=== PATIENT | female | born 1950 | race Caucasian/White ===

== ENCOUNTER 2017-09-10 06:58 | Emergency (ER) | payer OTHER ==
[~2017-09-10] VITALS: Ht 165.1 cm; Wt 127.0 kg
[~2017-09-10 06:58] MED LIST: AMBIEN 5 MG TABL5 M1 PO; AMITRIPTYLINE100 MG PO; ATORVASTATIN CA40 MG PO; B12INJ; BENTYL 20 MG TA20 M1 PO; BUSPIRONE HCL10 MG PO; CELEBREX 200 M200 M1 PO; CYMBALTA60 MG PO; CYTOMEL 25 MCG25 MC1 PO; FLEXERIL PO; FLOVENT HFA 1110 MCG PO; FOLIC ACID1 MG PO; IBUPROFEN 800800 M1 PO; ISOMETHEPT-DIC1 EACH PO; KEFLEX500 MG PO; LIDODERM1 EACH TRANSDERM; METHOTREXATE 22.5 MG PO; MIDODRINE HCL 55 M1 PO; MUCINEX TA600 MG/TA2 PO; NASONEX17 GM INH; NASONEX17 GM NASAL; NEURONTIN600 MG PO; OXYCODONE HCL 55 MG PO; OXYCONTIN20 M1 PO; PREDNISONE 5 MG5 M1 PO; PROCHLORPERAZINE5 M1 PO; PROTONIX40 M1 PO; SINGULAIR 10 MG10 M1 PO; TOLTERODINE TART4 MG PO; TOPAMAX 100 MG100 MG PO; TRIAMCINOLONE A80 G2 TOP; VALIUM5 MG PO; VENTOLIN HFA 1818 GM INH; VITAMIN D5000 UNIT PO
[2017-09-10] MEDS ORDERED: OXYCONTIN30 MG PO (07:10)
[2017-09-10 08:08] LABS: INFLUENZA A ANTIGEN None Detected (None Detect); INFLUENZA B ANTIGEN None Detected (None Detect)
[2017-09-10 08:17] LABS: WBC 4.1 thou/uL (4.0-11.0)
[2017-09-10 08:18] LABS: ABSOLUTE EOSINOPHILS 0.1 thou/uL (0.0-0.7); ABSOLUTE LYMPHOCYTES 0.9 thou/uL (0.8-5.3); ABSOLUTE MONOCYTES 0.4 thou/uL (0.0-1.2); ABSOLUTE NEUTROPHILS 2.7 thou/uL (1.6-8.1); BASOPHILS 0.6 %; EOSINOPHILS 2.7 %; HEMATOCRIT 34.6 % (37.0-47.0); HEMOGLOBIN 11.6 gm/dL (12.0-15.0); LYMPHOCYTES 22.5 %; MCHC 33.5 g/dL (28.0-37.0); MCV 89.6 fL (80.0-100.0); MONOCYTES 8.8 %; MPV 7.4 fl. (7.2-11.1); NUCLEATED RBCS 0 /100WBC; PLATELET COUNT* 62 thou/uL (150-400); POLYS 65.4 %; RBC 3.86 mil/uL (4.20-5.00); RDW-CV 16.9 % (10.5-14.5)
[2017-09-10 08:33] LABS: CALCIUM 8.8 mg/dL (8.5-10.1); CREATININE 0.9 mg/dL (0.6-1.3); POTASSIUM 3.6 mmol/L (3.5-5.1)
[2017-09-10 08:37] LABS: ALBUMIN 2.9 g/dL (3.4-5.0); TOTAL BILIRUBIN 0.7 mg/dL (<0.1-1.0); TOTAL PROTEIN 6.5 g/dL (6.4-8.2)
[2017-09-10 08:43] LABS: URINE BILIRUBIN NEGATIVE (Negative); URINE BLOOD 1+ (Negative); URINE CLARITY CLEAR; URINE COLOR YELLOW; URINE GLUCOSE-RANDOM NEGATIVE (Negative); URINE KETONES NEGATIVE (Negative); URINE LEUKOCYTES-REFLEX NEGATIVE (Negative); URINE NITRITE-REFLEX POSITIVE (Negative); URINE PROTEIN NEGATIVE (Negative); URINE SPECIFIC GRAVITY <= 1.005 (1.005-1.030); URINE UROBILINOGEN 0.2 E.U./dl (0.2-1.0)
[2017-09-10 08:54] LABS: CASTS None Seen /LPF (None Seen); CRYSTALS None Seen /LPF (None Seen); MUCUS None Seen strn/LPF (None Seen); SQUAMOUS 4-10 Moderate /LPF (0-3); URINE RBC 3-10 Few /HPF (0-2); URINE WBC-REFLEX 0-5 Rare /HPF (0-5)
[2017-09-10] MEDS ORDERED: CARAFATE 1 GM TA1 GM PO (10:20)
[2017-09-10] MEDS ORDERED: LEVAQUIN 500 M500 MG PO (10:20)
[2017-09-10] MEDS ORDERED: PHENERGAN 25 MG25 M1 PO (10:20)
[2017-09-10 10:35] VITALS: BP 138/60
--- NOTE | 2017-09-10 13:56 | EKG ---
[place] [address] ELECTROCARDIOGRAM REPORT Name: ANA DEY Room: [facility]#: [id number] Admission: 09/10/17 Attend Phys: Discharge: 09/10/17 Date of : 52 Report #: [id number] THIS REPORT FOR: //name// [facility] ED Test Date: 2017-09-10 Test Time: 07:05:26 Pat Name: ANA DEY Department: Room: Gender: F Telegraph Mechanic: BISMARK : 1950 Requested By: Tana Arambula Order Number: [id number] Mandie MD: Toni Dubois Measurements Intervals [place] Rate: 99 P: 41 WI: 150 QRS: -15 QRSD: 96 T: 21 QT: 377 QTc: 484 Interpretive Statements Sinus rhythm Left ventricular hypertrophy, bivoltage Baseline wander in lead(s) V1,V2,V5,V6 Compared to ECG 03/09/2017 23:40:28 Sinus tachycardia no longer present Q waves no longer present Electronically Signed On 09-10-2017 13:56:45 EXECUTIVE ADMINISTRATOR by Toni Dubois [email or web address] <ELECTRONICALLY SIGNED> By: Toni Dubois MD, FACC 09/10/17 1356 0705 0705 Toni Dubois MD, [facility] /EPI
== END 2017-09-10 10:45 | disposition home or self-care (01) ==
LOC: M.ERS 06:58
PROVIDERS: Personal Emergency Response Attendant
DX: N39.0 Urinary tract infection, site not specified (principal); B34.9 Viral infection, unspecified; R31.9 Hematuria, unspecified; E86.0 Dehydration

== ENCOUNTER 2017-09-20 19:32 | Inpatient (IN) | payer OTHER ==
[~2017-09-20] VITALS: Ht 165.1 cm; Wt 131.1 kg
[~2017-09-20 19:32] MED LIST changes: +CARAFATE 1 GM TA1 GM PO; +LEVAQUIN 500 M500 MG PO; +OXYCONTIN30 MG PO; +PHENERGAN 25 MG25 M1 PO
[2017-09-20 19:37] VITALS: BP 105/57
[2017-09-20 20:33] LABS: ABSOLUTE EOSINOPHILS 0.1 thou/uL (0.0-0.7); ABSOLUTE LYMPHOCYTES 0.4 thou/uL (0.8-5.3); ABSOLUTE MONOCYTES 0.4 thou/uL (0.0-1.2); ABSOLUTE NEUTROPHILS 1.8 thou/uL (1.6-8.1); BASOPHILS 0.4 %; HEMOGLOBIN 11.4 gm/dL (12.0-15.0); LYMPHOCYTES 13.5 %; MCH 30.4 pg (26.0-34.0); MCHC 33.4 g/dL (28.0-37.0); MONOCYTES 16.3 %; MPV 7.4 fl. (7.2-11.1); NUCLEATED RBCS 0 /100WBC; PLATELET COUNT* 53 thou/uL (150-400); POLYS 66.8 %; RBC 3.73 mil/uL (4.20-5.00); RDW-CV 17.1 % (10.5-14.5); WBC 2.7 thou/uL (4.0-11.0)
[2017-09-20 20:43] LABS: ANION GAP 10 mmol/L (7-16); BUN 9 mg/dL (7-18); CALCIUM 8.7 mg/dL (8.5-10.1); CHLORIDE 105 mmol/L (98-107); CO2 27 mmol/L (21-32); CREATININE 1.1 mg/dL (0.6-1.3); GLUCOSE 167 mg/dL (70-99); POTASSIUM 3.6 mmol/L (3.5-5.1); SODIUM 142 mmol/L (136-145)
[2017-09-20 20:54] LABS: ALKALINE PHOSPHATASE 104 U/L (46-116); NT-PRO BRAIN NAT PEPTIDE 136 pg/mL (<300); SGOT 25 U/L (15-37); SGPT 28 U/L (30-65); TOTAL BILIRUBIN 0.7 mg/dL (<0.1-1.0); TOTAL PROTEIN 6.5 g/dL (6.4-8.2); TROPONIN-I LEVEL <0.06 ng/mL (<0.06)
[2017-09-20 22:01] VITALS: BP 137/80
[2017-09-20 22:45] VITALS: BP 113/46
[2017-09-21 04:18] VITALS: BP 138/51
--- NOTE | 2017-09-21 06:04 | NUR ---
PATIENT ARRIVED ON FLOOR FROM ER ABOUT 2230. PATIENT ADMISSION HISTORY AND ASSESSMENT WAS COMPLETED CHARTED. IV FLUIDS AND ANTIBIOTICS WERE STARTED. PATIENT HAD A TEMP 101.6 UPON ARRIVAL TO FLOOR BUT WAS DOWN TO 97.8 AT 0400. PATIENT WAS GIVEN TORADOL ONCE FOR HEADACHE. WILL CONTINUE TO MONITOR.
[2017-09-21 09:45] VITALS: BP 83/33
--- NOTE | 2017-09-21 11:27 | NUR ---
SW met with pt and pt bedside to complete initial assessment, introduce self, and SW role. Pt alert and oriented although tired. Pt lives at home with and pt says that she feels safe at home and that her takes really good care of her. Pt fairly independent prior with mobility around the house and goes to [employer], uses scooter/wc at [facility], etc. otherwise pt does not get out of the house much. SW to continue to follow to assist with safe dc planning.
[2017-09-21 11:58] VITALS: BP 94/36
[2017-09-21 15:00] VITALS: BP 116/34
--- NOTE | 2017-09-21 16:17 | NUR ---
PATIENT CONTINUES TO HAVE DRY COUGH, SPUTUM CUP GIVEN FOR CULTURE OF OBTAINABLE. IV SL THIS SHIFT, SCHED ABX REMAIN. PRN OXY IR GIVEN FOR SHOULDER/CHEST PAIN FROM COUGHING, GOOD RELIEF NOTED. PATIENT UP SBA. CORTISOL LAB ORDERED FOR AM. MRSA SWAB PENDING.
[2017-09-21 16:28] LABS: URINE BILIRUBIN NEGATIVE (Negative); URINE BLOOD NEGATIVE (Negative); URINE CLARITY CLOUDY; URINE COLOR YELLOW; URINE GLUCOSE-RANDOM NEGATIVE (Negative); URINE KETONES NEGATIVE (Negative); URINE LEUKOCYTES NEGATIVE (Negative); URINE NITRITE NEGATIVE (Negative); URINE PROTEIN NEGATIVE (Negative); URINE SPECIFIC GRAVITY >= 1.030 (1.005-1.030); URINE UROBILINOGEN 0.2 E.U./dl (0.2-1.0)
[2017-09-21 16:38] LABS: SQUAMOUS 4-10 Moderate /LPF (0-3)
[2017-09-21 16:39] LABS: AMORPHOUS URATES Many /LPF (None Seen); BACTERIA 1-9 Few /HPF (None Seen); MUCUS None Seen strn/LPF (None Seen)
[2017-09-21 16:40] LABS: CASTS None Seen /LPF (None Seen); URINE RBC None Seen /HPF (0-2); URINE WBC 0-5 Rare /HPF (0-5)
[2017-09-22 04:00] VITALS: BP 103/34
--- NOTE | 2017-09-22 06:11 | NUR ---
ASSESSMENT COMPLETE. PT SLEPT THROUGH THE NIGHT. PT DENIES NEED FOR PAIN MEDICATION. PT HAD LOW GRADE TEMP, PRN TYLENOL GIVEN. PT GIVEN IV ANTIBIOTICS SCHEDULED. PT IS ON ROOM AIR WITH ADEQAUTE SATS. PT IS UP TO BATHROOM STANDBY ASSIST. PT IS SLEEPING AT THIS TIME AND HAS NO OTHER CONCERNS. SEE ASSESSMENT AND VITALS FOR OTHER DETAILS. CALL LIGHT WITHIN REACH, WILL CONTINUE TO MONITOR
[2017-09-22 06:43] LABS: HEMATOCRIT 30.3 % (37.0-47.0); HEMOGLOBIN 10.2 gm/dL (12.0-15.0); MCH 30.7 pg (26.0-34.0); MCHC 33.6 g/dL (28.0-37.0); MCV 91.4 fL (80.0-100.0); MPV 7.9 fl. (7.2-11.1); NUCLEATED RBCS 0 /100WBC; RBC 3.31 mil/uL (4.20-5.00); RDW-CV 16.9 % (10.5-14.5); WBC 2.2 thou/uL (4.0-11.0)
[2017-09-22 06:45] LABS: PLATELET COUNT* 39 thou/uL (150-400)
[2017-09-22 07:34] LABS: ABSOLUTE EOSINOPHILS 0.1 thou/uL (0.0-0.7); ABSOLUTE LYMPHOCYTES 0.2 thou/uL (0.8-5.3); ABSOLUTE MONOCYTES 0.2 thou/uL (0.0-1.2); ABSOLUTE NEUTROPHILS 1.7 thou/uL (1.6-8.1); PLATELET ESTIMATE DECREASED
[2017-09-22 16:44] VITALS: BP 102/37
--- NOTE | 2017-09-22 18:09 | NUR ---
ASSUMED CARE THIS AM. A/O X 4, REPORTS FEELING FATIGUED, NAUSEA TREATED WITH IV MEDICATION. CT ABD COMPLETE, FLUIDS INFUSING ORDERED, SELAM IV ABT WELL. CONSULTS FOR HEMATOLOGY AND INF. DISEASE PROCESSED. FAMILY AT BEDSIDE, PATIENT SLEEPING MOST OF THIS SHIFT. IV ACCESS TO LEFT SHOULDER CONT TO SELAM IVF. CONTINENT OF BOWEL/BLADDER, CALL LIGHT IN REACH.
[2017-09-23 00:12] VITALS: BP 113/37
[2017-09-23 02:12] LABS: HIV-1/HIV-2 ANTIBODY Non Reactive (Non Reactive)
--- NOTE | 2017-09-23 05:37 | NUR ---
PATIENT SLEPT WELL DURING THIS SHIFT. PT UP TO BATHROOM WITH STEADY GAIT. PT IS ON ROOM AIR. PT WITH FLUIDS INFUSING IN UPPER LT SHOULDER PER DR ORDER. PT WITH NON-PRODUCTIVE COUGH. PT DENIES PAIN ON THIS SHIFT. PT WITH BLOOD SUGAR AT 2100 OF 172; NO TX ORDERED. FREQUENTLY USED ITEMS AND CALL LIGHT WITHIN REACH. SIDERAILS UPX2. WILL CONTINUE TO MONITOR.
[2017-09-23 11:03] LABS: BASOPHILS 1.5 %; HEMOGLOBIN 9.6 gm/dL (12.0-15.0); LYMPHOCYTES 23.5 %; MCH 30.7 pg (26.0-34.0); MCHC 33.2 g/dL (28.0-37.0); MCV 92.2 fL (80.0-100.0); MONOCYTES 11.5 %; MPV 7.8 fl. (7.2-11.1); NUCLEATED RBCS 0 /100WBC; POLYS 61.5 %; RBC 3.15 mil/uL (4.20-5.00); RDW-CV 17.4 % (10.5-14.5)
[2017-09-23 11:09] LABS: ABSOLUTE LYMPHOCYTES 0.3 thou/uL (0.8-5.3); ABSOLUTE MONOCYTES 0.1 thou/uL (0.0-1.2); ABSOLUTE NEUTROPHILS 0.8 thou/uL (1.6-8.1); PLATELET COUNT* 34 thou/uL (150-400); WBC 1.3 thou/uL (4.0-11.0)
[2017-09-23 11:11] LABS: CALCIUM 7.1 mg/dL (8.5-10.1); CREATININE 1.1 mg/dL (0.6-1.3); POTASSIUM 3.7 mmol/L (3.5-5.1)
[2017-09-23 16:00] VITALS: BP 136/73
[2017-09-24 00:29] VITALS: BP 133/60
[2017-09-24 15:00] VITALS: BP 164/65
[2017-09-24 17:06] LABS: IgA 265 mg/dL (87-352); IgG 916 mg/dL (700-1600); IgM 88 mg/dL (26-217)
[2017-09-25 03:37] VITALS: BP 134/47
--- NOTE | 2017-09-25 07:54 | CON ---
[address] [address] CONSULTATION Name: ANA DEY Room: [address] IN M.R.#: [id number] Admission: 09/20/17 Attend Phys: Angel Garcia MD Discharge: Date of : 52 Report #: [id number] THIS REPORT FOR: //name// CC: Angel Leonard DATE OF SERVICE: 09/22/2017 ATTENDING PHYSICIAN: Angel Garcia MD REASON FOR EVALUATION: Febrile illness with pancytopenia in the patient with underlying lupus erythematosus, chronic cough and recent urinary tract infection. HISTORY OF PRESENT ILLNESS: Chart reviewed, the patient examined. This is a 66-year-old with extensive medical history given her age including systemic lupus erythematosus. She is followed by Dr. Leonard, edge finisher, also has rheumatoid arthritis, psoriatic arthritis and generalized pain with fibromyalgia. She does have ongoing issues with hepatosplenomegaly as well who states she has been ill dating back actually several weeks onset was including fevers, generalized pain, she did have a cough, when she was not particularly responsive was evaluated towards the latter part of July. No change in her medical regimen. She has not had fevers. She denies any exposure history. She was admitted and empirically started on piperacillin, tazobactam and levofloxacin. She notes she did have nausea and emesis with oral levofloxacin as an outpatient. She is not encephalopathic. Evaluation thus far has been somewhat unrevealing including urinary antigens, MRSA and PCR was negative. Lactic acid was elevated at 2.4 and repeat now 1.2. CBC: White count of 2.2, H and H was 10.2 and 30.3 and platelets were 39, all of this consistent with her previous labs. Chest x-ray did show a question of a mild left basilar infiltrate. ALLERGIES: SULFA, IODINE, CODEINE, LEVOTHYROXINE, NITROFURANTOIN, ADHESIVE TAPE, MIDODRINE. CURRENT MEDICATIONS: Include liothyronine, cyclobenzaprine, ondansetron, duloxetine, amitriptyline, atorvastatin, zolpidem, levofloxacin and Zosyn. PAST MEDICAL HISTORY: As described above, IBS; osteoarthritis; chronic pain syndrome; reflux; diabetes mellitus, diet controlled; previous thyroid disease with irradiation; migraines and Graves lymphoma. SOCIAL HISTORY: Nonsmoker and no ethanol. FAMILY HISTORY: [place] [address] CONSULTATION Name: DEYANA CHARLES Ela Room: [address] IN [facility]#: [id number] Admission: 09/20/17 Attend Phys: Angel Garcia MD Discharge: Date of : 52 Report #: [id number] REVIEW OF SYSTEMS: As above. PHYSICAL EXAMINATION: GENERAL: She appears ill, not overtly toxic. She is lying in left lateral decubitus position. She does make eye contact. She did not have frequent cough. She appears pale, mildly diaphoretic and moderate distress. VITAL SIGNS: Temperature max 101.6 and more recently 98.6, pulse 112, respirations 21 and blood pressure 103/34. SKIN: Warm and dry. HEENT: Otherwise unremarkable. NECK: Supple. LUNGS: Does have few scattered coarse breath sounds. HEART: Systolic murmur in the left sternal border. ABDOMEN: Obese, soft and there is tenderness in the left upper quadrant. I do not appreciate any peritoneal signs. GENITOURINARY: Deferred. RECTAL: Deferred. LABORATORY DATA: Sputum culture is pending. She had moderate white cells and mixed ger on Gram stain. Blood cultures are sterile thus far. Chest x-ray improved actually from the baseline with clearing sed rate of 35. CBC as noted above, white count of 2.2, H 10.2 and 30.3 and platelets of 39. She does have lymphocytopenia of 200. TSH of 1.553. Lactic acid was 1.2. Legionella pneumococcal antigen is negative. Urinalysis is 0-5 white cells. Liver functions otherwise unremarkable. ASSESSMENT: Febrile illness, uncertain etiology, recent cough in the setting of pancytopenia and immunosuppression. I think it is reasonable to go ahead and do a CT of the abdomen and pelvis to exclude an occult process. We will adjust antimicrobial therapy, await other pending results and go ahead and do a viral respiratory panel as well as HIV. It is hopeful that prognosis is probably fairly good given the duration of illness and the lack of overall clinical deterioration. We will follow. <ELECTRONICALLY SIGNED> By: Freddie Toribio MD 09/25/17 0754 1207 [id number] Toribio MD /nt
[2017-09-25 08:30] VITALS: BP 145/56
[2017-09-25 09:11] LABS: HEMATOCRIT 27.4 % (37.0-47.0); HEMOGLOBIN 9.1 gm/dL (12.0-15.0); MCH 30.3 pg (26.0-34.0); MCHC 33.3 g/dL (28.0-37.0); MCV 90.9 fL (80.0-100.0); MPV 7.7 fl. (7.2-11.1); NUCLEATED RBCS 0 /100WBC; RBC 3.01 mil/uL (4.20-5.00)
[2017-09-25 09:26] LABS: CALCIUM 7.6 mg/dL (8.5-10.1); MAGNESIUM 1.7 mg/dL (1.8-2.4); POTASSIUM 3.2 mmol/L (3.5-5.1)
[2017-09-25 09:29] LABS: WBC 1.4 thou/uL (4.0-11.0)
[2017-09-25 09:30] LABS: PLATELET COUNT* 39 thou/uL (150-400)
[2017-09-25 09:45] LABS: ABSOLUTE LYMPHOCYTES 0.4 thou/uL (0.8-5.3); ABSOLUTE MONOCYTES 0.1 thou/uL (0.0-1.2); ABSOLUTE NEUTROPHILS 0.8 thou/uL (1.6-8.1)
[2017-09-25 09:46] LABS: PLATELET ESTIMATE DECREASED
--- NOTE | 2017-09-25 15:31 | NUR ---
DR GARZA NOTIFIED OF PATIENT HAVING LOOSE BLOODY STOOLS AND HAVING SOME BLOODY SPUTUM. DR GARZA IN TO ASSESS PATIENT. SPOUSE AT BEDSIDE THIS AFTERNOON. WILL CONTINUE WITH PLAN OF CARE.
[2017-09-25 16:00] VITALS: BP 169/86
[2017-09-25 19:28] VITALS: BP 134/62
--- NOTE | 2017-09-25 19:47 | NUR ---
PATIENT HAS BEEN A/O X 4 THIS SHIFT. MEDICATED FOR PAIN X 1 WITH RELIEF. DID HAVE NAUSEA THIS AM RELIEVED BY ZOFRAN. IV FLUIDS SALINE LOCKED THIS SHIFT. SALINE LOCK PATENT TO LEFT FOREARM. IV ANTIBIOTICS ADJUSTED. PATIENT DID HAVE SOME BLOODY SPUTUM AND DID HAVE SOME BLOODY STOOLS THIS SHIFT. DR GARZA NOTIFIED AND NEW ORDERS NOTED. STARTED ON IV PROTONIX THIS AFTERNOON AND GI CONSULT CALLED. PATIENT TO HAVE ABDOMINAL ULTRASOUND IN AM. REPEAT LABS ORDERED FOR THE AM. PLATELETS AND WBC CRITICAL THIS SHIFT AND CALLED TO DR GARZA. UP WITH ASSIST TO BATHROOM. HOURLY ROUNDING COMPLETED. CALL LIGHT WITHIN REACH. WILL CONTINUE WITH PLAN OF CARE.
[2017-09-26 04:07] LABS: HEMATOCRIT 29.6 % (37.0-47.0); HEMOGLOBIN 9.8 gm/dL (12.0-15.0); MCH 30.2 pg (26.0-34.0); MCHC 33.1 g/dL (28.0-37.0); MCV 91.5 fL (80.0-100.0); RBC 3.24 mil/uL (4.20-5.00); RDW-CV 17.1 % (10.5-14.5)
[2017-09-26 04:26] LABS: INR 1.2; PROTIME 11.4 Seconds (9.20-11.50)
[2017-09-26 04:37] LABS: ALBUMIN 2.7 g/dL (3.4-5.0); CALCIUM 7.7 mg/dL (8.5-10.1); POTASSIUM 3.4 mmol/L (3.5-5.1); TOTAL BILIRUBIN 0.5 mg/dL (<0.1-1.0); TOTAL PROTEIN 5.6 g/dL (6.4-8.2)
--- NOTE | 2017-09-26 05:41 | NUR ---
ASSESSMENT COMPLETE. PT SLEPT GOOD DURING THE NIGHT. PT IS ON ROOM AIR WITH ADEQAUTE SATS. PT GIVEN PRN PAIN MEDICATION ONCE WITH RELIEF REPORTED. PT DENIES N/V. PT HAS BEEN NPO SINCE MIDNIGHT FOR ABDOMINAL US. PT HAS IV IN LEFT FOREARM, SALINE LOCKED. PT IS UP ONE ASSIST TO BATHROOM. PT IS WEAK AND UNSTEADY, BED ALARM ON. SEE ASSESSMENT AND VITALS FOR OTHER DETAILS. CALL LIGHT WITHIN REACH, WILL CONTINUE TO MONITOR
[2017-09-26 06:06] LABS: BETA-2-MICROGLOBULIN 4.6 mg/L (0.6-2.4)
[2017-09-26 07:45] VITALS: BP 141/63
[2017-09-26 09:30] VITALS: BP 141/63
[2017-09-26 16:00] VITALS: BP 145/65
--- NOTE | 2017-09-26 18:39 | NUR ---
PATIENT HAS BEEN A/O X 4 THIS SHIFT. STATES FEELING BETTER THAN PREVIOUS DAYS. HAS HAD GENERALIZED PAIN RELIEVED WITH PRN OXY IR. SALINE LOCK PATENT. UP TO CHAIR THIS SHIFT. APPETITE IMPROVED. SEEN BY GI AND TO HAVE EGD ON MONDAY, CONSENT SIGNED. RVP PENDING, REMAINS IN DROPLET PRECAUTIONS. NO BLEEDING NOTED THIS SHIFT, HAS HAD NO STOOLS OR BLOOD SPUTUM TODAY. PATIENT'S AT BEDSIDE. HOURLY ROUNDING COMPLETED. CALL LIGHT WITHIN REACH. WILL CONTINUE WITH PLAN OF CARE.
[2017-09-26 19:35] VITALS: BP 138/50
[2017-09-27 05:15] LABS: CREATININE 0.9 mg/dL (0.6-1.3); POTASSIUM 3.6 mmol/L (3.5-5.1)
--- NOTE | 2017-09-27 06:00 | NUR ---
ASSESSMENT COMPLETE. PT SLEPT THROUGH THE NIGHT WITHOUT ANY CONCERNS. PT DENIES PAIN AND N/V. PT IS ON ROOM AIR WITH ADEQAUTE SATS. PT IS UP WITH STANDBY ASSIST TO BATHROOM. PT NPO THIS AM FOR EGD AT 1300, CONSENTS SIGNED AND IN CHART. PT HAS IV IN LEFT FOREARM, SALINE LOCKED AND FLUSH WITHOUT DIFFICULTY. SEE ASSESSMENT AND VITALS FOR OTHER DETAILS. CALL LIGHT WITHIN REACH, WILL CONTINUE TO MONITOR
[2017-09-27 07:35] VITALS: BP 134/47
[2017-09-27 07:38] VITALS: BP 134/47
[2017-09-27 11:17] LABS: HEMATOCRIT 27.9 % (37.0-47.0); HEMOGLOBIN 9.1 gm/dL (12.0-15.0); MCH 30.2 pg (26.0-34.0); MCHC 32.7 g/dL (28.0-37.0); MCV 92.6 fL (80.0-100.0); MPV 7.6 fl. (7.2-11.1); RBC 3.01 mil/uL (4.20-5.00); RDW-CV 17.4 % (10.5-14.5)
[2017-09-27 11:23] LABS: WBC 1.8 thou/uL (4.0-11.0)
[2017-09-27 11:44] VITALS: BP 134/47
[2017-09-27 14:43] VITALS: BP 134/47; BP 146/66
--- NOTE | 2017-09-27 18:43 | NUR ---
PATIENT RESTING IN BED. PATIENT DENIES ANY PAIN. PATIENT DENIES ANY TROUBLE BREATHING. PATIENT DID HAVE COMPLAINTS OF RLE EDEMA AND TENDERNESS, DR GARZA NOTIFIED. PATIENT WAS SCHEDULED FOR EGD TODAY BUT POSTPONED FOR RVP RESULTS. PATIENT HAS BEEN RESCHEDULED FOR EGD TOMORROW. PATIENT IS TOLERATING REGULAR DIET TONIGHT. PATIENT DENIES ANY NEEDS AT THIS TIME. CALL LIGHT WITHIN REACH. WILL CONTINUE TO MONITOR.
[2017-09-27 19:35] VITALS: BP 142/71
--- NOTE | 2017-09-28 06:11 | NUR ---
ASSESSMENT COMPLETE. PT SLEPT THROUGH THE NIGHT WITHOUT ANY CONCERNS. PT IS ON ROOM AIR, PRN PAIN MEDICATION GIVEN ONCE. PT DENIES N/V. PT HAS BEEN NPO SINCE MIDNIGHT FOR EGD SCHEDULED 09/28. PT IS UP AD MESERET TO BATHROOM WITH STEADY GAIT. SEE ASSESSMENT AND VITALS FOR OTHER DETAILS. CALL LIGHT WITHIN REACH, WILL CONTINUE TO MONITOR
[2017-09-28 07:40] VITALS: BP 140/71
[2017-09-28 08:00] VITALS: BP 140/71
[2017-09-28 08:16] LABS: HEMATOCRIT 29.6 % (37.0-47.0); HEMOGLOBIN 9.8 gm/dL (12.0-15.0); MCH 29.8 pg (26.0-34.0); MCHC 33.2 g/dL (28.0-37.0); MCV 89.6 fL (80.0-100.0); MPV 7.7 fl. (7.2-11.1); NUCLEATED RBCS 0 /100WBC; PLATELET COUNT* 52 thou/uL (150-400); RDW-CV 16.8 % (10.5-14.5)
[2017-09-28 08:19] LABS: INR 1.2; PROTIME 11.3 Seconds (9.20-11.50); WBC 1.6 thou/uL (4.0-11.0)
[2017-09-28 08:25] LABS: ALBUMIN 2.5 g/dL (3.4-5.0); CALCIUM 8.1 mg/dL (8.5-10.1); CREATININE 0.9 mg/dL (0.6-1.3); POTASSIUM 3.3 mmol/L (3.5-5.1); TOTAL BILIRUBIN 0.6 mg/dL (<0.1-1.0)
[2017-09-28 08:46] LABS: ABSOLUTE LYMPHOCYTES 0.4 thou/uL (0.8-5.3); ABSOLUTE NEUTROPHILS 1.1 thou/uL (1.6-8.1); ANISOCYTOSIS 1+; ATYPICAL LYMPHS 1 %; HYPOCHROMASIA 2+; LARGE PLATELETS FEW; OVALOCYTES 1+; PLATELET ESTIMATE DECREASED
[2017-09-28] MEDS ORDERED: INDERAL 20 MG T20 M1 PO (15:30)
[2017-09-28] MEDS ORDERED: CORTEF 20 MG TA20 M1 PO ×2 (15:31)
[2017-09-28] MEDS ORDERED: PROTONIX40 M1 PO (15:35)
[2017-09-28] MEDS ORDERED: HYDROCHLOROQUINE PO (17:37)
--- NOTE | 2017-09-28 19:44 | NUR ---
RESUMED CARE THIS AM. A/O X 4, C/O HEADACHE, CHRONIC. LUNGS CLEAR, VSS, EGD PERFORMED THIS AM. ON COMPLETION, DISCHARGE ORDERS RECEIVED. DISCHARGE INSTRUCTIONS, FOLLOW UP APPT AND PRESCRIPTIONS DISCUSSED WITH PATIENT AND , DENY QUESTIONS AT THIS TIME. PERSONAL EFFECTS GATHERED AND ACCOUNTED FOR, IN COMPANY OF . PT ABLE TO DRESS SELF, TRANSPORTED TO MAIN ENTRANCE VIA WHEELCHAIR BY THIS NURSE IN STABLE CONDITION.
[2017-09-28 22:10] LABS: ADENOVIRUS Negative (Negative); INFLUENZA A Positive (Negative); INFLUENZA B Negative (Negative); METAPNEUMOVIRUS Negative (Negative); PARAINFLUENZA 1 Negative (Negative); PARAINFLUENZA 2 Negative (Negative); PARAINFLUENZA 3 Negative (Negative); RHINOVIRUS Negative (Negative); RSV A Negative (Negative); RSV B Negative (Negative)
--- NOTE | 2017-10-26 14:50 | CON ---
[address] [address] CONSULTATION Name: ANA DEY Room: [address] IN M.R.#: [id number] Admission: 09/20/17 Attend Phys: Angel Garcia MD Discharge: 09/28/17 Date of : 52 Report #: [id number] THIS REPORT FOR: //name// CC: Angel Leonard MD DICTATED BY: Jacque Rodríguez [facility] DATE OF SERVICE: 09/26/2017 Please note at the time of this dictation, the patient was seen and physically examined by myself. REASON FOR CONSULTATION: Melenic stool and a little bit of hematemesis. HISTORY OF PRESENT ILLNESS: This 66-year-old female presented to the emergency room with increased malaise and weakness and she had had a cough. During her stay here, she had noticed that her stools had become looser and they were black and watery in nature and that she also noted some clots mixing with that. She also had a small amount of hematemesis that was bright red blood as well. The patient did undergo an EGD back in 06/2016 that showed grade 1 esophageal varices, wawd-ls-phuaukzd portal hypertensive gastropathy, otherwise negative. Colonoscopy done in 11/2015, showed hyperplastic and tubular adenoma polyps, mild sigmoid diverticulosis and external hemorrhoids. During her admission in December, she did undergo a liver biopsy, which showed benign liver with nodular cirrhosis, mhll-qw-hfkadpmz macrovesicular steatosis was noted. It was also noted back in 06/2016, that she was looking at having a splenectomy in middle of July over at [facility] with ____ further looking at her records, Dr. Andrew spoke with Dr. Damian Silva, photography teacher at regarding her and a suggestion was made to consider a partial embolization of her spleen to see if this would improve shrinking her spleen as well as maybe improving some of her cytopenias. ALLERGIES: SULFA, IODINE, CODEINE, LATEX, LEVOTHYROXINE, MIDODRINE, AND MACROBID. MEDICATIONS: From home include methotrexate, buspirone, Ventolin, Lipitor, amitriptyline, cyclobenzaprine, Cytomel, Flexeril, oxycodone, Aristocort, vitamin D, Neurontin, Nasonex, lidocaine patch, Ambien, Singulair, Cymbalta, folic acid, Mucinex, and Phenergan. PAST MEDICAL HISTORY: Significant for diabetes, right-sided breast cancer in which she was treated with surgery and XRT 26 years ago, osteoarthritis, rheumatoid arthritis and currently on methotrexate, history of lupus, [place] [address] CONSULTATION Name: ANA DEY Room: [address] IN M.R.#: [id number] Admission: 09/20/17 Attend Phys: Angel Garcia MD Discharge: 09/28/17 Date of : 52 Report #: [id number] disease, osteoporosis, GERD, asthma, splenomegaly, likely HOPSON, and irritable bowels toward diarrhea per patient. PAST SURGICAL HISTORY: She has had a lumpectomy on the right, cholecystectomy, and hysterectomy. FAMILY HISTORY: Noncontributory. SOCIAL HISTORY: Denies any alcohol, tobacco or illegal drug use. REVIEW OF SYSTEMS: Twelve-point review of systems is essentially negative except what is mentioned in the HPI. PHYSICAL EXAMINATION: VITAL SIGNS: Temperature 36.6, pulse 100, respirations 20, and blood pressure 141/63. HEART: Regular rate and rhythm. LUNGS: Diminished. ABDOMEN: Soft, positive bowel sounds in all 4 quadrants with left upper quadrant tenderness noted to palpation. LABS: Hemoglobin is 9.8, hematocrit 29.6, white count is 2, hemoglobin on admission was 11.4, platelets on admission was 53, she is down to 43, but they are trending upward. PT is 11.4, INR is 1.2. Sodium 146, potassium 3.4, chloride 111, CO2 of 25, BUN is 10, creatinine is 1, GFR is 56, and glucose is 93. Ultrasound of the abdomen with Dopplers was essentially negative with good hepatic flow noted. IMPRESSION: 1. Melanotic stool. 2. Hematemesis. 3. Splenomegaly. 4. Pancytopenia. 5. Nonalcoholic steatohepatitis with advanced fibrosis 3 to 4. 6. Chronic arthritis. 7. Personal history of breast cancer on the right. 8. Personal history of colon polyps. PLAN: 1. EGD tomorrow with ____. 2. Further recommendations to be made once the procedure has been performed. [address] [address] CONSULTATION Name: ANA DEY Room: [address] IN M.R.#: [id number] Admission: 09/20/17 Attend Phys: Angel Garcia MD Discharge: 09/28/17 Date of : 52 Report #: [id number] Thank you for allowing us to participate in this patient's care. Please do not hesitate to call with any questions in regard to this consult. <ELECTRONICALLY SIGNED> By: Ann-Marie Boss MD 10/26/17 1450 1042 [id number]-Marie Boss MD /nt
--- NOTE | 2017-10-26 14:50 | CON ---
[address] [address] CONSULTATION Name: ANA DEY Room: [address] IN M.R.#: [id number] Admission: 09/20/17 Attend Phys: Angel Garcia MD Discharge: 09/28/17 Date of : 52 Report #: [id number] THIS REPORT FOR: //name// CC: Angel Garcia Mele Box DATE OF SERVICE: 09/26/2017 ADDENDUM This is a 66-year-old female who is well known to us as we had performed an upper endoscopy in the past for her. The patient presented to hospital with shortness of air and confusion with diagnosis of the flu. She reports that yesterday she had melanotic stool. The patient also known to have pancytopenia, splenomegaly and advanced liver disease due to HOPSON. We will proceed with upper endoscopy to further evaluate her melenic stool and hematemesis. The patient and are agreeable with plan. <ELECTRONICALLY SIGNED> By: Ann-Marie Boss MD 10/26/17 1450 1622 [id number]-Marie Boss MD /nt
== END 2017-09-28 18:00 | disposition home or self-care (01) | DRG 871 ==
LOC: M.ERS 19:32 → M.TBA-ER 21:26 → M.3W 21:26
PROVIDERS: Emergency Medicine Emergency Medical Services; Family Medicine; Internal Medicine; Internal Medicine Gastroenterology; Internal Medicine Infectious Disease; Physician Assistant; Specialist; ADMIT Internal Medicine
PROC: 0DJ08ZZ Inspection of Upper Intestinal Tract, Via Natural or Artificial Opening Endoscopic (ICD-10-PCS; principal; 2017-09-28)
DX: A41.9 Sepsis, unspecified organism (principal); J18.9 Pneumonia, unspecified organism; K92.0 Hematemesis; D61.818 Other pancytopenia; F11.20 Opioid dependence, uncomplicated; E44.0 Moderate protein-calorie malnutrition; Z68.42 Body mass index [BMI] 45.0-49.9, adult; E27.40 Unspecified adrenocortical insufficiency; I85.00 Esophageal varices without bleeding; K76.6 Portal hypertension; D64.9 Anemia, unspecified; K21.9 Gastro-esophageal reflux disease without esophagitis; E11.9 Type 2 diabetes mellitus without complications; M06.9 Rheumatoid arthritis, unspecified; G43.909 Migraine, unspecified, not intractable, without status migrainosus; G89.29 Other chronic pain; M32.9 Systemic lupus erythematosus, unspecified; K75.81 Nonalcoholic steatohepatitis (NASH); M54.9 Dorsalgia, unspecified; M81.0 Age-related osteoporosis without current pathological fracture; K74.60 Unspecified cirrhosis of liver; M35.9 Systemic involvement of connective tissue, unspecified; I95.9 Hypotension, unspecified; K31.89 Other diseases of stomach and duodenum; Z86.010 Personal history of colon polyps; Z85.3 Personal history of malignant neoplasm of breast; Z90.710 Acquired absence of both cervix and uterus; Z91.040 Latex allergy status; Z88.5 Allergy status to narcotic agent; Z88.2 Allergy status to sulfonamides; Z88.8 Allergy status to other drugs, medicaments and biological substances; Z91.09 Other allergy status, other than to drugs and biological substances; Z79.899 Other long term (current) drug therapy; Z91.041 Radiographic dye allergy status

== ENCOUNTER 2017-10-12 11:05 | Emergency (ER) | payer OTHER ==
[~2017-10-12] VITALS: Ht 162.6 cm; Wt 127.0 kg
[~2017-10-12 11:05] MED LIST changes: +CORTEF 20 MG TA20 M1 PO; +HYDROCHLOROQUINE PO; +INDERAL 20 MG T20 M1 PO
[2017-10-12] MEDS ORDERED: CEFDINIR300 MG PO (11:41)
[2017-10-12 12:00] VITALS: BP 107/80
--- NOTE | 2017-10-16 17:00 | EKG ---
[place] [address] ELECTROCARDIOGRAM REPORT Name: ANA DEY Room: [facility]#: [id number] Admission: 10/12/17 Attend Phys: Discharge: 10/12/17 Date of : 52 Report #: [id number] THIS REPORT FOR: //name// [facility] ED Test Date: 2017-10-15 Test Time: 09:49:59 Pat Name: ANA DEY Department: Room: Gender: F Musician Instrumental: [place] : 1950 Requested By: Reed Chavez Order Number: [id number] MD: Caleb Cedeno Measurements Intervals [place] Rate: 99 P: 43 [place]: 144 QRS: -19 QRSD: 95 T: 41 QT: 371 QTc: 477 Interpretive Statements Sinus rhythm Probable left atrial enlargement Left ventricular hypertrophy Borderline prolonged QT interval Baseline wander in lead(s) I,III,aVL Compared to ECG 09/10/2017 07:05:26 No significant changes Electronically Signed On 10-16-2017 17:00:20 RETAIL HELPER by Caleb Cedeno [email or web address] <ELECTRONICALLY SIGNED> By: Caleb Cedeno MD, [facility] 10/16/17 1700 0949 0949 Caleb Cedeno MD, [facility] /EPI
== END 2017-10-12 12:00 | disposition home or self-care (01) ==
LOC: M.ERS 11:05
DX: H66.013 Acute suppurative otitis media with spontaneous rupture of ear drum, bilateral (principal); K58.9 Irritable bowel syndrome, unspecified; G89.29 Other chronic pain; K21.9 Gastro-esophageal reflux disease without esophagitis; M32.9 Systemic lupus erythematosus, unspecified; E11.9 Type 2 diabetes mellitus without complications; G43.909 Migraine, unspecified, not intractable, without status migrainosus; M06.9 Rheumatoid arthritis, unspecified; L40.50 Arthropathic psoriasis, unspecified; E05.00 Thyrotoxicosis with diffuse goiter without thyrotoxic crisis or storm; M79.7 Fibromyalgia; Z90.710 Acquired absence of both cervix and uterus; Z88.5 Allergy status to narcotic agent; Z91.040 Latex allergy status; Z88.2 Allergy status to sulfonamides; Z88.8 Allergy status to other drugs, medicaments and biological substances

== ENCOUNTER 2017-10-15 09:42 | Emergency (ER) | payer OTHER ==
[~2017-10-15] VITALS: Ht 162.6 cm; Wt 127.0 kg
[~2017-10-15 09:42] MED LIST changes: +CEFDINIR300 MG PO
[2017-10-15 10:18] LABS: ABSOLUTE EOSINOPHILS 0.1 thou/uL (0.0-0.7); ABSOLUTE LYMPHOCYTES 0.7 thou/uL (0.8-5.3); ABSOLUTE MONOCYTES 0.5 thou/uL (0.0-1.2); ABSOLUTE NEUTROPHILS 3.3 thou/uL (1.6-8.1); BASOPHILS 0.3 %; EOSINOPHILS 2.4 %; HEMOGLOBIN 11.4 gm/dL (12.0-15.0); MCH 29.1 pg (26.0-34.0); MCHC 32.6 g/dL (28.0-37.0); MCV 89.2 fL (80.0-100.0); MONOCYTES 11.1 %; MPV 7.8 fl. (7.2-11.1); NUCLEATED RBCS 0 /100WBC; PLATELET COUNT* 69 thou/uL (150-400); POLYS 71.2 %; RBC 3.92 mil/uL (4.20-5.00); RDW-CV 16.6 % (10.5-14.5); WBC 4.7 thou/uL (4.0-11.0)
[2017-10-15 10:27] LABS: ANION GAP 9 mmol/L (7-16); BUN 13 mg/dL (7-18); CALCIUM 8.6 mg/dL (8.5-10.1); CHLORIDE 104 mmol/L (98-107); CO2 26 mmol/L (21-32); GLUCOSE 140 mg/dL (70-99); POTASSIUM 3.8 mmol/L (3.5-5.1); SODIUM 139 mmol/L (136-145)
[2017-10-15 10:34] LABS: ALBUMIN 2.7 g/dL (3.4-5.0); ALKALINE PHOSPHATASE 89 U/L (46-116); SGOT 22 U/L (15-37); SGPT 22 U/L (30-65); TOTAL BILIRUBIN 0.8 mg/dL (<0.1-1.0); TOTAL PROTEIN 7.5 g/dL (6.4-8.2); TROPONIN-I LEVEL <0.06 ng/mL (<0.06)
[2017-10-15 10:38] LABS: APTT 28.9 Seconds (25.0-31.3); INR 1.1; PROTIME 10.7 Seconds (9.20-11.50)
[2017-10-15] MEDS ORDERED: CORTISPORIN OTI10 M2 OTIC (10:56)
[2017-10-15 10:58] VITALS: BP 167/84
== END 2017-10-15 11:00 | disposition home or self-care (01) ==
LOC: M.ERS 09:42
PROVIDERS: Family Medicine
DX: H66.93 Otitis media, unspecified, bilateral (principal); K58.9 Irritable bowel syndrome, unspecified; M19.90 Unspecified osteoarthritis, unspecified site; G89.29 Other chronic pain; K21.9 Gastro-esophageal reflux disease without esophagitis; M32.9 Systemic lupus erythematosus, unspecified; E11.9 Type 2 diabetes mellitus without complications; G43.909 Migraine, unspecified, not intractable, without status migrainosus; M06.9 Rheumatoid arthritis, unspecified; L40.50 Arthropathic psoriasis, unspecified; M79.7 Fibromyalgia; E05.00 Thyrotoxicosis with diffuse goiter without thyrotoxic crisis or storm; Z88.5 Allergy status to narcotic agent; Z90.710 Acquired absence of both cervix and uterus; Z91.041 Radiographic dye allergy status; Z88.8 Allergy status to other drugs, medicaments and biological substances; Z88.2 Allergy status to sulfonamides

== ENCOUNTER 2018-06-22 10:23 | Emergency (ER) | payer OTHER ==
[~2018-06-22] VITALS: Ht 165.1 cm; Wt 149.7 kg
[~2018-06-22 10:23] MED LIST changes: +CORTISPORIN OTI10 M2 OTIC
[2018-06-22 11:22] LABS: ABSOLUTE EOSINOPHILS 0.1 thou/uL (0.0-0.7); ABSOLUTE LYMPHOCYTES 0.7 thou/uL (0.8-5.3); ABSOLUTE MONOCYTES 0.3 thou/uL (0.0-1.2); BASOPHILS 0.7 %; EOSINOPHILS 3.4 %; HEMOGLOBIN 11.4 gm/dL (12.0-15.0); LYMPHOCYTES 22.6 %; MCH 30.2 pg (26.0-34.0); MCHC 33.4 g/dL (28.0-37.0); MCV 90.4 fL (80.0-100.0); MONOCYTES 8.7 %; MPV 7.5 fl. (7.2-11.1); NUCLEATED RBCS 0 /100WBC; PLATELET COUNT* 56 thou/uL (150-400); POLYS 64.6 %; RBC 3.76 mil/uL (4.20-5.00); RDW-CV 16.7 % (10.5-14.5); WBC 3.1 thou/uL (4.0-11.0)
[2018-06-22 11:29] LABS: ANION GAP 8 mmol/L (7-16); BUN 13 mg/dL (7-18); CALCIUM 8.1 mg/dL (8.5-10.1); CHLORIDE 106 mmol/L (98-107); CO2 27 mmol/L (21-32); GLUCOSE 123 mg/dL (70-99); POTASSIUM 3.2 mmol/L (3.5-5.1); SODIUM 141 mmol/L (136-145)
[2018-06-22 11:30] LABS: INFLUENZA A ANTIGEN None Detected (None Detect); INFLUENZA B ANTIGEN None Detected (None Detect)
[2018-06-22 11:31] LABS: APTT 27.4 Seconds (25.0-31.3); INR 1.1; PROTIME 11.4 Seconds (9.20-11.50)
[2018-06-22 11:40] LABS: ALBUMIN 2.9 g/dL (3.4-5.0); ALKALINE PHOSPHATASE 90 U/L (46-116); NT-PRO BRAIN NAT PEPTIDE 151 pg/mL (<300); SGOT 26 U/L (15-37); SGPT 20 U/L (30-65); TOTAL BILIRUBIN 1.7 mg/dL (<0.1-1.0); TOTAL PROTEIN 6.5 g/dL (6.4-8.2); TROPONIN-I LEVEL <0.06 ng/mL (<0.06)
[2018-06-22] MEDS ORDERED: VENTOLIN HFA 1818 GM INH (15:12)
[2018-06-22] MEDS ORDERED: ZPAK PO (15:12)
[2018-06-22] MEDS ORDERED: DOXYCYCLINE 10100 MG PO ×2 (15:13→15:15)
[2018-06-22] MEDS ORDERED: ALBUTEROL2.5 MG/0.5 INH (15:24)
[2018-06-22 15:30] VITALS: BP 113/44
--- NOTE | 2018-06-22 15:45 | EKG ---
[place] [address] ELECTROCARDIOGRAM REPORT Name: ANA DEY Room: [facility]#: [id number] Admission: 06/22/18 Attend Phys: Discharge: 06/22/18 Date of : 52 Report #: [id number] THIS REPORT FOR: //name// [facility] ED Test Date: 2018-06-22 Test Time: 11:01:50 Pat Name: ANA DEY Department: Room: Gender: F Pairer Substandard: Phil GARCIA : 1950 Requested By: Oneal Bowman Order Number: [id number] MD: Ron Montoya Measurements Intervals [place] Rate: 94 P: 50 TN: 146 QRS: -2 QRSD: 93 T: 17 QT: 408 QTc: 511 Interpretive Statements Sinus rhythm Prolonged QT interval Compared to ECG 10/15/2017 09:49:59 Left ventricular hypertrophy no longer present Electronically Signed On 06-22-2018 15:44:59 CDT by Ron Montoya [email or web address] <ELECTRONICALLY SIGNED> By: Ron Montoya MD, [facility] 06/22/18 1544 1101 1101 Ron Montoya MD, [facility] /EPI
== END 2018-06-22 15:31 | disposition home or self-care (01) ==
LOC: M.ERS 10:23
PROVIDERS: Nurse Practitioner Family
DX: B34.9 Viral infection, unspecified (principal); K58.9 Irritable bowel syndrome, unspecified; M19.90 Unspecified osteoarthritis, unspecified site; G89.29 Other chronic pain; K21.9 Gastro-esophageal reflux disease without esophagitis; M32.9 Systemic lupus erythematosus, unspecified; E11.9 Type 2 diabetes mellitus without complications; G43.909 Migraine, unspecified, not intractable, without status migrainosus; M06.9 Rheumatoid arthritis, unspecified; L40.50 Arthropathic psoriasis, unspecified; M79.7 Fibromyalgia; K74.0 Hepatic fibrosis; Z90.710 Acquired absence of both cervix and uterus; Z88.5 Allergy status to narcotic agent; Z91.041 Radiographic dye allergy status; Z91.040 Latex allergy status; Z88.2 Allergy status to sulfonamides; Z88.8 Allergy status to other drugs, medicaments and biological substances; Z88.1 Allergy status to other antibiotic agents

== ENCOUNTER 2020-01-04 20:57 | Inpatient (IN) | payer OTHER ==
[~2020-01-04] VITALS: Ht 165.1 cm; Wt 164.2 kg
[~2020-01-04 20:57] MED LIST changes: +ALBUTEROL2.5 MG/0.5 INH; +DOXYCYCLINE 10100 MG PO; +VITAMIN D31250 MC1 PO; -VITAMIN D5000 UNIT PO; +ZPAK PO
[2020-01-04 21:02] VITALS: BP 144/61
[2020-01-04] MEDS ORDERED: TOPROL XL100 MG PO (21:11)
[2020-01-04] MEDS ORDERED: CARAFATE 1 GM TA1 G1 PO (21:11)
[2020-01-04] MEDS ORDERED: NEXIUM40 MG PO (21:14)
[2020-01-04 21:35] LABS: ABSOLUTE EOSINOPHILS 0.2 thou/uL (0.0-0.7); ABSOLUTE LYMPHOCYTES 1.2 thou/uL (0.8-5.3); ABSOLUTE MONOCYTES 0.5 thou/uL (0.0-1.2); ABSOLUTE NEUTROPHILS 3.4 thou/uL (1.6-8.1); BASOPHILS 0.4 %; EOSINOPHILS 2.9 %; HEMATOCRIT 34.2 % (37.0-47.0); HEMOGLOBIN 11.6 gm/dL (12.0-15.0); LYMPHOCYTES 23.2 %; MCH 29.7 pg (26.0-34.0); MCHC 33.9 g/dL (28.0-37.0); MCV 87.7 fL (80.0-100.0); MONOCYTES 8.6 %; MPV 8.2 fl. (7.2-11.1); NUCLEATED RBCS 0 /100WBC; PLATELET COUNT* 94 thou/uL (150-400); POLYS 64.9 %; RBC 3.91 mil/uL (4.20-5.00); RDW-CV 15.9 % (10.5-14.5); WBC 5.3 thou/uL (4.0-11.0)
[2020-01-04 21:44] LABS: INR 1.1; PROTIME 11.3 Seconds (9.20-11.50)
[2020-01-04 21:53] LABS: CALCIUM 8.3 mg/dL (8.5-10.1); CREATININE 0.9 mg/dL (0.6-1.3)
[2020-01-04 22:00] LABS: ALBUMIN 2.6 g/dL (3.4-5.0); MAGNESIUM 1.8 mg/dL (1.8-2.4); TOTAL BILIRUBIN 1.6 mg/dL (<0.1-1.0); TOTAL PROTEIN 6.7 g/dL (6.4-8.2)
[2020-01-04 23:22] LABS: URINE BILIRUBIN NEGATIVE (Negative); URINE BLOOD TRACE (Negative); URINE CLARITY CLEAR; URINE COLOR YELLOW; URINE GLUCOSE-RANDOM NEGATIVE (Negative); URINE KETONES NEGATIVE (Negative); URINE LEUKOCYTES-REFLEX NEGATIVE (Negative); URINE NITRITE-REFLEX NEGATIVE (Negative); URINE PROTEIN NEGATIVE (Negative); URINE SPECIFIC GRAVITY <= 1.005 (1.005-1.030)
[2020-01-05] VITALS (7 sets, daily range): BP systolic 107–154; BP diastolic 32–100
[2020-01-05] MEDS ORDERED: FLOVENT HFA 4444 MCG INH (04:23)
--- NOTE | 2020-01-05 06:36 | NUR ---
RECIEVED PT FROM ED AT APPROX 0400. PT IS AWAKE AND ORIENTED X4. HEAD REFRIGERATING ENGINEER IN PLACE TRACING SR. ADMISSION ASSESSMENT DONE AND CHARTED. PT IS ORIENTED ON THE USE OF CALL LIGHT AND ON THE ROOM SET UP. FALL PRECAUTIONS IN PLACE. CALL LIGHT WITHIN REACH. HOURLY ROUNDING DONE FOR PT SAFETY.
--- NOTE | 2020-01-05 15:36 | EKG ---
[place] [address] ELECTROCARDIOGRAM REPORT Name: ANA DEY Room: [address] ADM IN .R.#: [id number] Admission: 01/04/20 Attend Phys: Angel Garcia, Discharge: Date of : 52 Date of Service: 01/04/202104 Report #: [id number] THIS REPORT FOR: //name// [facility] ED Test Date: 2020-01-04 Test Time: 21:05:15 Pat Name: ANA DEY Department: Room: [facility] Gender: F Newspaper Correspondent: [place] : 1950 Requested By: Alyssia Martin Order Number: [id number] MD: Matt De La Rosa Measurements Intervals [place] Rate: 98 P: 48 [place]: 155 QRS: -14 QRSD: 90 T: 45 QT: 379 QTc: 484 Interpretive Statements Sinus rhythm Left ventricular hypertrophy Compared to ECG 06/22/2018 11:01:50 Left ventricular hypertrophy now present Prolonged QT interval no longer present Electronically Signed On 01-05-2020 15:34:19 CDT by Matt De La Rosa [email or web address] <ELECTRONICALLY SIGNED> By: Fox De La Rosa MD, [facility] 01/05/20 1534 04 04 Fox De La Rosa MD, [facility] /EPI
--- NOTE | 2020-01-05 18:46 | NUR ---
I ASSUMED CARE OF THE PATIENT AT 0700. HE IS ALERT AND ORIENTED X4 AND IS UP AD MESERET. BED IS IN THE LOW LOCKED POSITION AND CALL LIGHT IS IN REACH. HOURLY ROUNDING IS COMPLETED AND PATIENT NEEDS ARE MET. COVID IS PENDING. VENOUS ULTRASOUND WAS COMPLETED AND RESULTED WELL. BLOOD SUGAR IS MONITORED AND MANAGED WITH INSULIN. TYLENOL IS USED TO CONTROL FEVER. RT WAS ADDED TODAY. WILL CONTINUE TO MONITOR.
[2020-01-06] VITALS: BP 129/43
--- NOTE | 2020-01-06 03:35 | NUR ---
ASSUMED CARE OF PT AT 1900. PT IS ALERT AND ORIENTED. VSS. PERRLA. PT REPORTS GENERALIZED PAIN AND BACK PAIN. PT IS IN SINUS RYTHM ON THE TELEMETRY. PT IS RESTING COMFORTABLY IN BED. RESPIRATIONS ARE EVEN AND NONLABORED. WILL CONTINUE TO MONITOR PT.
[2020-01-06 04:00] VITALS: BP 119/59
[2020-01-06 08:35] LABS: HEMATOCRIT 29.6 % (37.0-47.0); HEMOGLOBIN 9.8 gm/dL (12.0-15.0); MCH 29.3 pg (26.0-34.0); MCV 88.7 fL (80.0-100.0); MPV 8.1 fl. (7.2-11.1); RBC 3.33 mil/uL (4.20-5.00); RDW-CV 15.7 % (10.5-14.5); WBC 6.4 thou/uL (4.0-11.0)
[2020-01-06 08:43] LABS: ALBUMIN 2.4 g/dL (3.4-5.0); CALCIUM 8.1 mg/dL (8.5-10.1); CREATININE 1.3 mg/dL (0.6-1.3); MAGNESIUM 1.9 mg/dL (1.8-2.4); POTASSIUM 4.2 mmol/L (3.5-5.1); TOTAL BILIRUBIN 1.5 mg/dL (<0.1-1.0); TOTAL PROTEIN 6.3 g/dL (6.4-8.2)
[2020-01-06 11:15] VITALS: BP 105/37
--- NOTE | 2020-01-06 16:21 | NUR ---
ATTEMPTED TO CALL PT.OM ROOM PHONE AND CELL PHONE. NO ANSWER ON ROOM PHONE. LEFT VM ON CELL. TOLD PT.WHY I WAS CALLING AND THAT I WOULD CALL HER IN AM.
--- NOTE | 2020-01-06 19:00 | NUR ---
PATIENT PLEASANT AND COOPERATIVE W/ ASSESS AND CARES. CONVERSANT. UP TO BR INDEP W/ STEADY GAIT. IV SITE CHANGED W/ ASST OF IV/INSERT CUTTER. SEE MAR. NO ACUTE DISTRESS NOTED. ISO PRECAUTIONS MAINTAINED. ~TJRN
[2020-01-06 21:00] VITALS: BP 106/37
[2020-01-07] VITALS: BP 126/50
[2020-01-07 04:00] VITALS: BP 122/51
--- NOTE | 2020-01-07 04:08 | NUR ---
ASSUMED CARE OF PT AT 1900. PT IS ALERT AND ORIENTED. VSS. PERKIKA. PT IS ON ROOM AIR. PT IS IN SINUS RYTHM ON THE TELEMETRY. PT IS RESTING COMFORTABLY IN BED. RESPIRATIONS ARE EVEN AND NONLABORED. WILL CONTINUE TO MONITOR PT.
--- NOTE | 2020-01-07 08:26 | NUR ---
Nutrition: Pt admitted with cellulitis, COVID pending. RD has seen pt in past for wt loss ed. Apparently, ~70# wt gain in 2 yrs (289# to 352#). H/o DM, GERD, lupus, OA. Pt is currently NPO. Alb 2.4, prealb 10.5, BG 186. Will await COVID results, and wait for diet to resume. No nutrition interventions needed today. Mild risk. Follow up 01/12/20.
[2020-01-07 09:01] LABS: ABSOLUTE LYMPHOCYTES 0.5 thou/uL (0.8-5.3); ABSOLUTE MONOCYTES 0.3 thou/uL (0.0-1.2); ABSOLUTE NEUTROPHILS 4.6 thou/uL (1.6-8.1); BASOPHILS 0.2 %; EOSINOPHILS 0.1 %; HEMATOCRIT 27.5 % (37.0-47.0); HEMOGLOBIN 9.3 gm/dL (12.0-15.0); MCH 29.6 pg (26.0-34.0); MCHC 33.9 g/dL (28.0-37.0); MCV 87.5 fL (80.0-100.0); MONOCYTES 5.1 %; MPV 8.8 fl. (7.2-11.1); NUCLEATED RBCS 0 /100WBC; PLATELET COUNT* 87 thou/uL (150-400); POLYS 84.6 %; RBC 3.15 mil/uL (4.20-5.00); RDW-CV 15.9 % (10.5-14.5); WBC 5.4 thou/uL (4.0-11.0)
[2020-01-07 09:04] LABS: CALCIUM 7.7 mg/dL (8.5-10.1); CREATININE 1.1 mg/dL (0.6-1.3); POTASSIUM 4.7 mmol/L (3.5-5.1)
[2020-01-07 09:45] VITALS: BP 119/47
--- NOTE | 2020-01-07 15:29 | NUR ---
SPOKE WITH PT.ON PHONE IN ROOM. SHE WAS ALERT AND ORIENTED. STATED SHE LIVES WITH HER . HE CAN ASSIST HER IF NEEDED. SHE SAID SHE DOES PRETTY MUCH EVERYTHING ON HER OWN. SAID SHE HAS BEEN UP IN THE ROOM INDEPENDENTLY. SHE SAID SHE USES A CANE. HAS A WALKER BUT TOO SMALL FOR HER. CM WILL SEE IF SHE CAN GET A NEW WALKER-BARIATRIC ONE. SHE SAID HER OTHER WALKER WAS GIVEN TO HER. DOES NOT WANT TO GO TO SNF OR HAVE HOME HEALTH. SHE SAID SHE IS AFRAID OF GETTING COVID. SHE WAS EVEN LEARY OF COMING INTO HOSPITAL. CM WILL FOLLOW.
--- NOTE | 2020-01-07 18:40 | NUR ---
PATIENT PLEASANT AND COOPERATIVE THRU SHIFT W/ ASSESS AND CARES. SEE OCT. ISO PRECAUTIONS MAINTAINED AWAITING COVID RESULTS. PATIENT INDE IN RM. NOTED SWELLING BLE. REDNESS TO BLE IMPROVED FROM YESTERDAY. PATIENT NPO FOR CARDIAC STRESS TESTING, TESTING CANCELLED THIS AFTERNOON, RESCHEDULED FOR TOMORROW AM. PATIENT ATE SUPPER MEAL W/O DIFF. REPORT GIVEN TO [employer] REGISTRAR FROM TRANSFER AFTER COVID RESULT NEG. PATIENT TRANSFERRED FROM UNIT ON BED W/ BELONGINGS AT 1840. ~TJRN
[2020-01-07 19:30] VITALS: BP 103/46
[2020-01-08] VITALS: BP 128/44
[2020-01-08 04:00] VITALS: BP 124/49
--- NOTE | 2020-01-08 06:57 | NUR ---
ASSESSMENT COMPLETED CHARTED.VSS. PT CONCERNED SHE IS HAVEING A MARTI "FLARE UP" WILL COMUINCATE WITH DAY SHIFT. PT ALSO STATED THAT SHE LOST A PAIR OF SLIPPERS, LOOKED FOR SLIPPERS IN PREBIOUS ROOM WAS NOT LOCATED.
--- NOTE | 2020-01-08 09:57 | 2DMMODE ---
[place] [address] 2 D/M-MODE ECHOCARDIOGRAM Name: DEYANA Room: [address] [place]#: [id number] Admission: 01/04/20 Attend Phys: Angel Garcia, Discharge: Date of : 52 Date of Service: 01/08/20 0955 Report #: [id number] THIS REPORT FOR: cc: Ondina Spencer Tammy RNP Blick, David R. MD [facility] ~ APPROVED REPORT Study performed: 01/08/2020 08:53:55 EXAM: Comprehensive 2D, Doppler, and color-flow Echocardiogram Patient Location: In-Patient BSA: 2.52 HR: 90 bpm BP: 136/75 mmHg Other Information Study Quality: Fair Technically limited study due to body habitus. Indications Chest Pain 2D Dimensions IVSd: 11.52 (7-11mm) LVOT Diam: 18.01 (18-24mm) LVDd: 49.50 mm PWd: 8.08 (7-11mm) Ascending Ao: 24.75 (22-36mm) LVDs: 28.22 (25-40mm) Aortic Root: 23.49 mm Volumes Left Atrial Volume (Systole) LA ESV Index: 17.50 mL/m2 Aortic Valve AoV Peak Teto.: 3.20 m/s AO Peak Gr.: 41.02 mmHg LVOT Max P.65 mmHg AO Mean Gr.: 21.16 mmHg LVOT Mean P.94 mmHg LVOT Max V: 0.96 m/s AO V2 VTI: 61.69 cm LVOT Mean V: 0.65 m/s NIESHA (VTI): 0.82 cm2 LVOT V1 VTI: 19.88 [place] [address] 2 D/M-MODE ECHOCARDIOGRAM Name: ANA DEY Room: [address]#: [id number] Admission: 01/04/20 Attend Phys: Angel Garcia, Discharge: Date of : 52 Date of Service: 01/08/20 0955 Report #: [id number] E/A Ratio: 1.33 MV Decel. Time: 248.63 ms MV E Max Teto.: 1.17 m/s MV PHT: 72.10 ms MVA (PHT): 3.05 cm2 TDI E/Lateral E': 11.70 E/Medial E': 13.00 Medial E' Teto.: 0.09 m/s Lateral E' Teto.: 0.10 m/s Pulmonary Valve PV Peak Teto.: 1.45 m/s PV Peak Gr.: 8.36 mmHg Tricuspid Valve RAP Estimate: 5.00 mmHg TR Peak Gr.: 36.36 mmHg RVSP: 41.36 mmHg PA Pressure: 41.36 mmHg Left Ventricle The left ventricle is normal size. There is normal LV segmental wall motion. There is normal left ventricular wall thickness. Left ventricular systolic function is hyperdynamic. LVEF is 65-70%. Right Ventricle Right ventricle is borderline dilated. The right ventricular systolic function is normal. Atria The left atrium size is normal. Interatrial septum not well visualized. The right atrium size is normal. Aortic Valve The Aortic valve is sclerotic. No aortic regurgitation is present. Moderate aortic stenosis. Mitral Valve The mitral valve is normal in structure. There is no mitral valve regurgitation noted. No evidence of mitral valve stenosis. Tricuspid Valve The tricuspid valve is normal in structure. Trace tricuspid regurgitation. estimated pa pressure 40 mm Hg Pulmonic Valve Pulmonic valve is not well visualized. There is [place] [address] 2 D/M-MODE ECHOCARDIOGRAM Name: ANA DEY Ela Room: [address] IN [facility]#: [id number] Admission: 01/04/20 Attend Phys: Angel Garcia, Discharge: Date of : 52 Date of Service: 01/08/20 0955 Report #: [id number] regurgitation. Great Vessels The aortic root is normal in size. IVC is not visualized. Pericardium There is no pericardial effusion. <Conclusion> LVEF is 65-70%. Moderate aortic stenosis. Trace tricuspid regurgitation. estimated pa pressure 40 mm Hg <ELECTRONICALLY SIGNED> By: Ron Montoya MD, [facility] 01/08/20954 4 4 Ron Montoya MD, FAC /INF
[2020-01-08 10:11] VITALS: BP 126/57
[2020-01-08 12:12] VITALS: BP 126/34
--- NOTE | 2020-01-08 13:08 | NUR ---
Pt refusing skilled. Per , stress test today. Per nurse Pt up in room ad ileana. CM faxed walker order to [facility] and sent a copy to nurse to put in Pt's chart. Therapies will need to dispense walker at [place]. Following.
[2020-01-08 16:01] LABS: HEMATOCRIT 26.6 % (37.0-47.0); HEMOGLOBIN 8.9 gm/dL (12.0-15.0); MCH 29.3 pg (26.0-34.0); MCHC 33.3 g/dL (28.0-37.0); MPV 7.8 fl. (7.2-11.1); RBC 3.02 mil/uL (4.20-5.00); RDW-CV 16.4 % (10.5-14.5); WBC 3.2 thou/uL (4.0-11.0)
[2020-01-08 16:11] VITALS: BP 123/49
[2020-01-08 16:32] LABS: ALBUMIN 2.5 g/dL (3.4-5.0); CALCIUM 7.9 mg/dL (8.5-10.1); CREATININE 1.5 mg/dL (0.6-1.3); POTASSIUM 4.1 mmol/L (3.5-5.1); TOTAL BILIRUBIN 1.2 mg/dL (<0.1-1.0); TOTAL PROTEIN 6.2 g/dL (6.4-8.2)
--- NOTE | 2020-01-08 16:43 | CARDNUC ---
[place] [address] CARDIAC NUCLEAR IMAGING REPORT Name: DEYANA Ela Room: [address] IN [facility]#: [id number] Admission: 01/04/20 Attend Phys: Angel Garcia, Discharge: Date of : 52 Date of Service: 01/08/20 1641 Report #: [id number] THIS REPORT FOR: cc: Ondina Spencer Tammy RNP Liston, Michael J. MD [facility] ~ APPROVED REPORT Imaging Protocol: Stress Tc-99m/Rest Tc-99m 2 days Study performed: 01/08/2020 09:44:00 Indication: Chest pain, dyspnea, LE edema/cellulitis, nausea, diaphoresis. Patient Location: In-Patient Room #: 226 Stress Tech: Serena Pandey Stress Nurse: Karen Newman RN NM Tech:RAZA Molina Ht: 5 ft 5 in Wt: 352 lbs BSA: 2.52 m2 BMI: 58.56 Medical History Medical History: Angina, Dyspnea, LE edema/Cellulitis, elevated D-Dimer, nausea, diaphoresis, Hx syncope, HTN, IDDM, Murmur, Obesity, family HX CAD, arthritis, bilateral knee surgery. Medications: Metoprolol, Furosemide, Solu-Medrol, Atorvastatin. Allergies: Sulfa ABT, Iodine, Codeine, Levothyroxine Sodium, Nitrofurantoin, Adhesive/tape, Midodrine, Latex. Cardiac Risk Factors: Age, Diabetes (insulin), FHX of CAD, HTN, SOB, LE edema, BMI >58, Murmur. Previous Cardiac Procedures: None Pretest Chest Pain Characteristics: No chest pain Exercise History: Sedentary Physical Disabilities: Cellulitis, Obesity, weakness/fatigue, HX bilateral knee surgery, Murmur. Meds Held (24 hrs): Metoprolol. Resting Data Rest SPECT myocardial perfusion imaging was performed in supine position 30 minutes following the intravenous injection of 31.1 mCi of Tc-99m Sestamibi. Time of rest injection: 1510 Date: 01/06/2020 [place] [address] CARDIAC NUCLEAR IMAGING REPORT Name: ANA DEY Room: [address]#: [id number] Admission: 01/04/20 Attend Phys: Angel Garcia, Discharge: Date of : 52 Date of Service: 01/08/20 1641 Report #: [id number] The images were gated to evaluate regional wall motion and calculate left ventricular ejection fraction. Administration Route: IV Administration Site: Left Arm Pharmacologic Stress Pharmacologic stress test was performed by injecting Regadenoson 0.4 mg IV push over 10-15 seconds immediately followed by the intravenous injection of 31.2 mCi of Tc-99m Sestamibi. Time of stress injection: 844 Date: 01/08/2020 Administration Route: IV Administration Site: Left Arm Gated Stress SPECT was performed 40 minutes after stress injection. The images were gated to evaluate regional wall motion and calculate left ventricular ejection fraction. Stress only was performed in the Supine position. Stress Test Details Stress Test: Pharmacologic stress testing performed using 0.4 mg of regadenoson per 5 mL given IV over 10 seconds. Reason for pharmacologic stress test: LE Cellulitis, obesity, weakness/fatigue, HX bilateral knee surgery.. HR Max Heart Rate (APMHR): 152 bpm Resting HR: 91 bpm Target HR (85% APMHR): 129 bpm Max HR Achieved: 105 bpm % of APMHR: 69 Recovery HR: 94 bpm BP Resting BP: 136/75 mmHg Max BP: 155/70 mmHg Recovery BP: 151/71 mmHg ECG Resting ECG: Sinus Rhythm, NSSTT changes Stress ECG: Sinus Rhythm, NSSTT changes ST Change: None Arrhythmia: None Recovery ECG: Sinus Rhythm, nonspecific ST-T abnormalities Recovery ST Change: None Recovery Arrhythmia: None Clinical Reason for Termination: [place] [address] CARDIAC NUCLEAR IMAGING REPORT Name: ANA DEY Room: [address]#: [id number] Admission: 01/04/20 Attend Phys: Angel Garcia, Discharge: Date of : 52 Date of Service: 01/08/20 1641 Report #: [id number] Stress Symptoms: Neck fullness/tightness, Labored breathing. Exercise duration: 00 min 00 sec Exercise capacity: 1.00 METs The patient tolerated Lexiscan infusion without significant cardiac symptoms. Nurse Comments A 69 year old female inpatient presented for a sitting Lexiscan r/t chest pain, dyspnea, LE edema/cellulitis, nausea and diaphoresis. Test well tolerated. Recovery unremarkable with PO caffeine. Patient proceeded to Echo followed by Nuclear Medicine for imaging. Patient was stable and stated she felt good at that time. Stress ECG Conclusion The baseline twelve-lead EKG shows sinus rhythm with nonspecific ST segment depression diffusely. EKGs obtained during and post Lexiscan infusion show sinus rhythm and sinus tachycardia with no significant ST segment changes when compared to baseline. There were no stress-induced arrhythmias. Study Quality Study: Fair Artifact: Mild Breast artifac andtDiaphragmatic artifact Study Data Post stress, the left ventricular ejection was 71%.. Perfusion Perfusion study show mild focal photopenia of the apex likely due to apical thinning artifact. Wall motion in this region is normal. There is mild photopenia in the basal to mid inferior wall. Wall motion in this region is normal suggesting diaphragmatic attenuation artifact. No other significant fixed or reversible defects were identified. Wall Motion Normal left ventricular wall motion. Nuclear Conclusion ECG Findings: non-diagnostic Clinical Findings: negative for ischemia Nuclear Findings: negative for ischemia Exercise Capacity: not assessed Left Ventricular Function: normal Risk Study: [place] [address] CARDIAC NUCLEAR IMAGING REPORT Name: ANA DEY Room: [address] IN ..#: [id number] Admission: 01/04/20 Attend Phys: Angel Garcia, Discharge: Date of : 52 Date of Service: 01/08/201640 Report #: [id number] Perfusion study show no defect to suggest ischemia. Left ventricular systolic function is normal on gated studies. This is a low risk study. <Conclusion> The baseline twelve-lead EKG shows sinus rhythm with nonspecific ST segment depression diffusely. EKGs obtained during and post Lexiscan infusion show sinus rhythm and sinus tachycardia with no significant ST segment changes when compared to baseline. There were no stress-induced arrhythmias. <ELECTRONICALLY SIGNED> By: Toni Dubois MD, FACC 01/08/201640 40 40 Toni Dubois MD, FACC /INF
--- NOTE | 2020-01-08 16:47 | NUR ---
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 ORDERED, TRACING SR/PAC- CONT OF B/B- UP AD-MESERET IN ROOM WITH STEADY GAIT NOTED- LCTA, RESP EVEN AND UNLABORED-GOOD PO INTAKE NOTED THIS SHIFT WITH MEALS, BS MONITORED ORDERED WITH SSI PRESCRIBED- DYSPNEA NOTED ON EXERTION- ABD SOFT/OBESE/NON-TENDER, BS X4 QUADS- LAST BM REPORTED TODAY- IV NOTED TO LEFT FA INTACT AND SL- IV ABT GIVEN THIS SHIFT PRESCRIBED- 2-3+ BLE EDEME NOTED, TUB ROOFER GYPSUM STOCKINGS APPLIED TO BLE PER THIS NURSE ORDERED; LEG ELEVATION IN PLACE INDICATED- REDNESS NOTED TO RLE- ECHO RESULTS AT 65-70% LVEF- STRESS TEST RESULTED NEGATIVE FOR ANY ISCHEMIA/STRESS INDUCED ARRYTHMIAS- ALDACTONE 25MG DAILY ADDED THIS AM AND GIVEN PRESCRIBED- TYLENOL X1 FOR C/O BLE PAIN-CALL LIGHT AND PERSONAL BELONGINGS WITH IN REACH- PT MAKES NEEDS KNOWN- ALL NEEDS MET AT THIS TIME-MIC
[2020-01-09 00:22] VITALS: BP 124/46
[2020-01-09 04:00] VITALS: BP 97/41
[2020-01-09 04:21] LABS: HEMATOCRIT 27.1 % (37.0-47.0); HEMOGLOBIN 9.2 gm/dL (12.0-15.0); MCH 29.4 pg (26.0-34.0); MCV 86.4 fL (80.0-100.0); MPV 7.1 fl. (7.2-11.1); RBC 3.13 mil/uL (4.20-5.00); RDW-CV 16.1 % (10.5-14.5)
[2020-01-09 04:31] LABS: CALCIUM 7.6 mg/dL (8.5-10.1); MAGNESIUM 2.1 mg/dL (1.8-2.4)
--- NOTE | 2020-01-09 05:32 | NUR ---
RECEIVED REPORT AND ASSUMED CARE OF PATIENT AT 1900. VSS. NO ACUTE CHANGES THROUGHOUT NIGHT. ALL ROUNDINGS COMPLETED, ALL NEEDS MET, FULL ASSESSMENT COMPLETED CHARTED.
[2020-01-09 08:00] VITALS: BP 134/60
[2020-01-09 11:58] VITALS: BP 128/44
--- NOTE | 2020-01-09 13:56 | NUR ---
Per Dr, anticipate dc either dc tomorrow or Monday.
[2020-01-09 16:00] VITALS: BP 113/41
--- NOTE | 2020-01-09 18:35 | NUR ---
ASSUMED PT CARE AT 0700, PT A&O X4, VSS, RA, UP AD MESERET. LINEN CONTROLLER TRACING SINUS RHYTHM, 2-3+ PITTING EDEMA IN BLE, DIURETICS ON BOARD, PT TOLERATING WELL. HOURLY ROUNDING COMPLETED.
[2020-01-09 20:00] VITALS: BP 127/58
[2020-01-10] VITALS: BP 154/56
[2020-01-10 04:00] VITALS: BP 123/44
[2020-01-10 04:41] LABS: ABSOLUTE LYMPHOCYTES 0.8 thou/uL (0.8-5.3); ABSOLUTE MONOCYTES 0.4 thou/uL (0.0-1.2); ABSOLUTE NEUTROPHILS 3.5 thou/uL (1.6-8.1); BASOPHILS 0.2 %; EOSINOPHILS 0.1 %; HEMATOCRIT 30.1 % (37.0-47.0); HEMOGLOBIN 10.1 gm/dL (12.0-15.0); MCH 29.5 pg (26.0-34.0); MCHC 33.7 g/dL (28.0-37.0); MCV 87.6 fL (80.0-100.0); MONOCYTES 8.8 %; NUCLEATED RBCS 0 /100WBC; PLATELET COUNT* 72 thou/uL (150-400); POLYS 73.9 %; RBC 3.44 mil/uL (4.20-5.00); RDW-CV 16.2 % (10.5-14.5); WBC 4.7 thou/uL (4.0-11.0)
--- NOTE | 2020-01-10 04:55 | NUR ---
ASSSUMED PT CARE AT APPROX 1930. PT IS AWAKE AND ORIENTED X4. PT IS TRACING SR ON THE ADVANCED NURSING PROFESSOR. ASSESSMENT DONE AND CHARTED. PT C/O ABDOMINAL PAIN AND BLE PAIN PARTIALLY RELIEVED BY PAIN MEDICINE GIVEN PER MAR.NO ACUTE CHANGES OVERNIGHT. CALL LIGHT WITHIN REACH. HOURLY ROUNDING DONE FOR PT SAFETY.
[2020-01-10 05:15] LABS: ALBUMIN 2.7 g/dL (3.4-5.0); CALCIUM 8.1 mg/dL (8.5-10.1); CREATININE 1.1 mg/dL (0.6-1.3); TOTAL BILIRUBIN 1.7 mg/dL (<0.1-1.0); TOTAL PROTEIN 6.5 g/dL (6.4-8.2)
[2020-01-10 08:00] VITALS: BP 139/47
[2020-01-10 12:00] VITALS: BP 100/31
[2020-01-10] MEDS ORDERED: DOXYCYCLINE 10100 MG PO (13:58)
[2020-01-10 15:35] VITALS: BP 100/31
--- NOTE | 2020-01-10 15:40 | NUR ---
PT VSS, NSR ON TELE, ROOM AIR, A&OX4, UP AD MESERET, HOURLY ROUNDING PERFORMED, POSSESSIONS AND CALL LIGHT WITHIN REACH, REC DISCHARGE ORDERS, REVIEWED WITH PATIENT, SCRIPTS AND CARE NOTES GIVEN, TELE MONITOR AND IV REMOVED WITHOUT COMPLICATION. PT TAKEN BY WHEELCHAIR TO FRONT EXIT, PICKED UP BY SPOUSE IN FAMILY CAR
[2020-01-10 16:08] VITALS: BP 118/38
--- NOTE | 2020-01-13 12:29 | CON ---
[address] [address] CONSULTATION Name: ANA DEY Room: [address] IN [place]#: [id number] Admission: 01/04/20 Attend Phys: Angel Garcia MD Discharge: 01/10/20 Date of : 52 Report #: [id number] THIS REPORT FOR: //name// cc: Ondina Spencer Tammy RNP ~ THIS REPORT FOR: //name// CC: GEO physician/PCP Angel Garcia CARDIOLOGY CONSULTATION HISTORY OF PRESENT ILLNESS: I was asked by Dr. Garcia to see this 69-year-old white female in cardiology consultation for evaluation and treatment of chest pain. This lady came in with bilateral lower extremity cellulitis, right greater than left. It is presumed to be either staph or strep. Additionally, she has a history of chest pain. She does have a history of bronchitis and asthma as well. She did have a CT of her chest that showed some evidence of bronchitis. There was peribronchial thickening or bronchial cuffing on the CT of the chest. Chest x-ray was fairly clear. I believe she did have a widened mediastinum. However, there was nothing on the CT to suggest a dissection. There was no evidence of pulmonary embolism. She has had Dopplers of her lower extremities and there was no evidence of thrombus. This lady does have a history of hypercholesterolemia, hypothyroidism, asthma and essential hypertension. She has had this chest pain for more than a year and a half. She says maybe 2 years. She gets it several times a day. It is fairly severe pain at least 5 on a scale of 10. It is in her left lower chest and the breast area. She does have tenderness to palpation in the area, but her chest pain is not clearly reproduced by palpation. She describes her pain as a burning pain. There are no associated symptoms with it and there is radiation with it to the left shoulder. The pain can be worse with activity, but also occurs at rest, sometimes it is better with rest. There is associated shortness of breath, nausea and diaphoresis. Sometimes it is aggravated by food and sometimes it is relieved by food. She has not tried nitroglycerin. Sometimes the pain will last for hours, but sometimes it is 7-10 minutes. She gets a lot. Lying down makes it better. This lady does have chronic dyspnea on exertion, but not orthopnea or PND. She does get chronic edema. She has had syncope or near syncope in the past. She does not smoke, does not have high cholesterol or diabetes. She never smoked. She does not have high blood pressure. She says there is a family history of coronary artery disease. She has not had hypertension. She does have a history of some outflow tract obstruction on an echo from a couple of years ago. She is on metoprolol that was started by Dr. Dubois and I suspect that may be why she is on it. She did have a stress test over 2 years ago that was negative. She has never had peripheral vascular disease. She does get pain in her legs when she walks, which is not clearly claudication. I think she has arthritis. She does not have any open or nonhealing wounds. She does have a heart murmur, which may be the outflow tract [address] [address] CONSULTATION Name: ANA DEY Room: [address] IN [place]#: [id number] Admission: 01/04/20 Attend Phys: Angel Garcia MD Discharge: 01/10/20 Date of : 52 Report #: [id number] obstruction. She has a number of other issues including osteoarthritis and lupus. She has fibromyalgia as well. She is morbidly obese. She has an enlarged spleen. She has had a cholecystectomy, a , hysterectomy, knee surgery bilaterally. She apparently has a history of Graves' disease. She has degenerative bone disease. ALLERGIES: SHE IS ALLERGIC TO SULFA, IODINE, CODEINE, SYNTHROID, MACROBID, ADHESIVE TAPE, MIDODRINE, AND LATEX. HOME MEDICATIONS: She has an extensive list of medications including albuterol nebulizers q.4 hours p.r.n., albuterol inhalers 2 inhalations q.4 hours p.r.n., atorvastatin 40 mg daily, buspirone 10 mg t.i.d., vitamin D 5000 units daily, Flexeril 10 mg t.i.d., Cymbalta 60 mg b.i.d., Nexium 40 mg b.i.d., Flovent 1 puff q.4 hours p.r.n., folic acid 2 tablets daily of 1 mg each, gabapentin 600 mg at bedtime, guaifenesin 600 mg q.6 hours p.r.n., krsewgfvsarvm-vtqwcqutjwklf-tixykxvpvzepxdoyui for headache 1 tablet q.6 hours p.r.n., lidocaine patch daily, Cytomel 1000 mg daily, metoprolol 100 mg daily, montelukast 10 mg daily, oxycodone 30 mg daily plus oxycodone IR 1-2 tablets q.12 hours p.r.n., Carafate 1 gram q.i.d., Aristocort p.r.n. and hydroxychloroquine 500 mg daily for her lupus. SOCIAL HISTORY: She is . 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 Does not smoke, never smoked and does not drink, never drank. Does not use illegal drugs FAMILY HISTORY: Remarkable for father, mother, sister and grandmother and grandfather all having coronary heart disease. They all had sudden . REVIEW OF SYSTEMS: Positive for fever, cough, sputum production, pneumonia, wheezing, palpitations, chest discomfort, shortness of breath, nearly passing out, heart murmurs, extremity edema, thyroid trouble, voimiting, vomiting blood, ulcers, anemia, cancer of the right breast, seasonal allergies, medical allergies, arthritis, connective tissue disease, rashes, wearing glasses, decreased hearing, bleeding from the nose and wearing dentures. Otherwise, her review of systems is negative for some 20 different complaints in 14 different system categories. Please see review of system form for details and negatives in review of systems. PHYSICAL EXAMINATION: GENERAL: She presents as a well-developed, well-nourished white female, in no acute distress. VITAL SIGNS: Her pulse was 100, blood pressure is 143/60, temperature was 98.7, respirations 16 and regular. HEENT: Her head was atraumatic. Eyes are clear. NECK: Supple. There is no jugular venous distention or hepatojugular reflux. Thyroid is not enlarged. There is no adenopathy. SKIN: Warm and dry. [place]uc[place] [address] CONSULTATION Name: ANA DEY Room: [address]#: [id number] Admission: 01/04/20 Attend Phys: Angel Garcia MD Discharge: 01/10/20 Date of : 52 Report #: [id number] LUNGS: Clear to auscultation and percussion. HEART: Revealed normal first and second heart sound. There is soft S4. There is no S3. There are no murmurs, rubs, thrills, heaves or gallops. PMI is nondisplaced. ABDOMEN: Soft, flat and nontender. No palpable masses, no organomegaly. EXTREMITIES: Reveal no cyanosis, clubbing. There was 1+ left ankle edema. There was 2+ right ankle edema. There was clear cut cellulitis of both lower extremities, right greater than left. IMPRESSION: 1. Chest pain. 2. Probable chronic bronchitis. 3. Bilateral lower extremity cellulitis. 4. Hypercholesterolemia. 5. Hypothyroidism. 6. Asthma. RECOMMENDATION: She should have a stress test and an echo. Thank you very much for asking me to see this patient. If there are any questions, please feel free to contact me. <ELECTRONICALLY SIGNED> By: Fox De La Rosa MD, FACC 01/13/20 1229 1510 [id number]. Matt De La Rosa MD, FACC /nt
== END 2020-01-10 16:30 | disposition hospice, home (50) | DRG 603 ==
LOC: M.ERS 20:57 → M.TBA-ER 23:29 → M.ORTHSURG 23:29 → M.2W 01-07 19:08
PROVIDERS: Emergency Medicine; Internal Medicine; Nurse Practitioner; ADMIT Internal Medicine
DX: L03.116 Cellulitis of left lower limb (principal); C85.90 Non-Hodgkin lymphoma, unspecified, unspecified site; Z68.44 Body mass index [BMI] 60.0-69.9, adult; L03.115 Cellulitis of right lower limb; E66.01 Morbid (severe) obesity due to excess calories; M19.90 Unspecified osteoarthritis, unspecified site; G89.29 Other chronic pain; E11.9 Type 2 diabetes mellitus without complications; G43.909 Migraine, unspecified, not intractable, without status migrainosus; M06.9 Rheumatoid arthritis, unspecified; K21.9 Gastro-esophageal reflux disease without esophagitis; E78.00 Pure hypercholesterolemia, unspecified; E03.9 Hypothyroidism, unspecified; J45.909 Unspecified asthma, uncomplicated; K58.9 Irritable bowel syndrome, unspecified; M79.7 Fibromyalgia; M32.9 Systemic lupus erythematosus, unspecified; K74.60 Unspecified cirrhosis of liver; D64.9 Anemia, unspecified; Z20.828 Contact with and (suspected) exposure to other viral communicable diseases; R16.1 Splenomegaly, not elsewhere classified; E05.00 Thyrotoxicosis with diffuse goiter without thyrotoxic crisis or storm; D69.6 Thrombocytopenia, unspecified; Z88.2 Allergy status to sulfonamides; Z88.8 Allergy status to other drugs, medicaments and biological substances; Z88.1 Allergy status to other antibiotic agents; Z90.710 Acquired absence of both cervix and uterus; Z88.6 Allergy status to analgesic agent; Z91.041 Radiographic dye allergy status; Z91.040 Latex allergy status; Z82.49 Family history of ischemic heart disease and other diseases of the circulatory system

== ENCOUNTER 2020-06-28 12:54 | Inpatient (IN) | payer OTHER ==
[~2020-06-28] VITALS: Ht 165.1 cm; Wt 162.3 kg
[~2020-06-28 12:54] MED LIST changes: +CARAFATE 1 GM TA1 G1 PO; +FLOVENT HFA 4444 MCG INH; +NEXIUM40 MG PO; +TOPROL XL100 MG PO
[2020-06-28 12:59] VITALS: BP 111/49
[2020-06-28 13:58] LABS: ABSOLUTE EOSINOPHILS 0.1 thou/uL (0.0-0.7); ABSOLUTE LYMPHOCYTES 0.4 thou/uL (0.8-5.3); ABSOLUTE MONOCYTES 0.2 thou/uL (0.0-1.2); ABSOLUTE NEUTROPHILS 1.9 thou/uL (1.6-8.1); BASOPHILS 0.7 %; EOSINOPHILS 3.2 %; HEMOGLOBIN 7.4 gm/dL (12.0-15.0); LYMPHOCYTES 14.2 %; MCH 23.4 pg (26.0-34.0); MCHC 30.7 g/dL (28.0-37.0); MPV 8.4 fl. (7.2-11.1); NUCLEATED RBCS 0 /100WBC; PLATELET COUNT* 77 thou/uL (150-400); POLYS 73.9 %; RBC 3.15 mil/uL (4.20-5.00); RDW-CV 20.2 % (10.5-14.5); WBC 2.6 thou/uL (4.0-11.0)
[2020-06-28 14:05] LABS: CALCIUM 8.2 mg/dL (8.5-10.1); CREATININE 1.2 mg/dL (0.6-1.3); POTASSIUM 4.3 mmol/L (3.5-5.1)
[2020-06-28 14:11] LABS: ALBUMIN 2.3 g/dL (3.4-5.0); TOTAL BILIRUBIN 2.2 mg/dL (<0.1-1.0); TOTAL PROTEIN 6.8 g/dL (6.4-8.2)
[2020-06-28 14:31] LABS: OVALOCYTES 1+
[2020-06-28 14:33] LABS: ANISOCYTOSIS 2+; PLATELET ESTIMATE DECREASED
[2020-06-28 17:25] LABS: APTT 28.3 Seconds (25.0-31.3); INR 1.2; PROTIME 12.7 Seconds (9.20-11.50)
[2020-06-28 17:53] VITALS: BP 115/70
[2020-06-28 18:15] VITALS: BP 145/55
[2020-06-28 19:47] VITALS: BP 123/45
--- NOTE | 2020-06-28 19:50 | NUR ---
GAETANO ARRIVED FROM ER AT THIS TIME. HISTORY, ASSESSMENT AND VITALS COMPLETED AND DOCUMENTED. PATIENT DENIES ANY PAIN AT THIS TIME. PATIENT HAS CELLULITIS TO RLE. PATIENT HAD BOUT OF DIARRHEA BEFORE TRANSFER TO UNIT. PATIENT DENIES ANY NEEDS AT THIS TIME. CALL LIGHT WITHIN REACH.
--- NOTE | 2020-06-29 04:34 | NUR ---
PT A&O, VSS ON ROOM AIR, PT UP WITH SBA, IV FLUIDS INFUSING ORDERED, PAIN MED REQUESTED AND GIVEN ORDERED. PT NPO SINCE MIDNIGHT, PT TURNED Q2H. PT SLEEPING WELL, HOURLY ROUNDINGS COMPLETE, WILL CONTINUE TO MONITOR.
[2020-06-29 07:30] VITALS: BP 124/55
--- NOTE | 2020-06-29 11:36 | NUR ---
PT.SLEEPING. AT BEDSIDE. SPOKE WITH AND HE ANSWERED THE QUESTIONS. HE SAID HE NORMALLY HAS TO HELP PT.WITH EVERYTHING. HE COOKS,CLEANS,DOES THE LAUNDRY. HE HELPS HER INTO THE TUB BUT SHE CAN BATHE. SHE NORMALLY STAYS IN A NIGHT GOWN. SHE HAS NOT BEEN OUT OF THE HOUSE SINCE ~OCTOBER. HER DR.TOLD HER NOT TO GO ANYWHERE. SHE HAS NOT HX OF HOME HEALTH OR SNF. NO USE OF O2 AT HOME.
[2020-06-29 16:13] VITALS: BP 127/63
--- NOTE | 2020-06-29 16:34 | EKG ---
[place] [address] ELECTROCARDIOGRAM REPORT Name: ANA DEY Room: [address] ADM IN [place].R.#: [id number] Admission: 06/28/20 Attend Phys: Ludy Edge, Discharge: Date of : 52 Date of Service: 06/28/20 1331 Report #: [id number] THIS REPORT FOR: //name// [facility] ED Test Date: 2020-06-28 Test Time: 13:31:50 Pat Name: ANA DEY Department: Room: [facility] Gender: F [employer] Supervisor: RILEY : 1950 Requested By: Jemma Avina Order Number: [id number] MD: Caleb Cedeno Measurements Intervals [place] Rate: 81 P: 54 [place]: 141 QRS: -6 QRSD: 93 T: 23 QT: 423 QTc: 491 Interpretive Statements Sinus rhythm Low voltage, precordial leads Borderline prolonged QT interval Compared to ECG 01/04/2020 21:05:15 Low QRS voltage now present Left ventricular hypertrophy no longer present Electronically Signed On 06-29-2020 16:34:36 STAMP PRESS OPERATOR by Caleb Cedeno [email or web address] <ELECTRONICALLY SIGNED> By: Caleb Cedeno MD, FACC 06/29/20 1634 1331 1331 Caleb Cedeno MD, FACC /EPI
--- NOTE | 2020-06-29 21:03 | NUR ---
A&OX 4, PWD, SAT UP IN CHAIR FOR SHORT TIME TODAY TOLERATED WELL. UP TO COMMODE WITH STAND BY ASSIST. LUNGS CLEAR, HEART TONES REGULAR WITH MURMUR NOTED. HYPOACTIVE BS X 4 QUADS. 3+ LOWER LEG AND FOOT EDEMAT BILATERAL. IV FLUIDS DC'D TODAY. NO C/O PAIN. WILL CONTINUE TO MONITOR.
[2020-06-29 23:30] VITALS: BP 116/35
[2020-06-30 04:17] VITALS: BP 113/49
[2020-06-30 07:50] VITALS: BP 161/67
--- NOTE | 2020-06-30 08:01 | NUR ---
PATIENT HAS SLEPT IN SHORT SPURTS DURING THE NIGHT. PATIENT UP FREQUENTLY URINATING AFTER GIVEN LASIX. PATIENT UP WITH SBA TO THE BSC. MEDICATIONS GIVEN ORDERED AND CHARTED. IV IN RIGHT FOREARM-SL. IV ABT GIVEN WITHOUT ANY ADVERSE SIDE EFFECTS NOTED. PATIENT INSTRUCTED TO USE CALL LIGHT WHEN NEEDING ASSISTANCE. HOURLY ROUNDS MADE. WILL CONTINUE WITH PLAN OF CARE AND NURSING TO MONITOR.
[2020-06-30 11:25] LABS: ALBUMIN 2.9 g/dL (3.4-5.0); CALCIUM 8.4 mg/dL (8.5-10.1); CREATININE 1.3 mg/dL (0.6-1.3); POTASSIUM 3.2 mmol/L (3.5-5.1); TOTAL PROTEIN 7.1 g/dL (6.4-8.2)
[2020-06-30 11:28] LABS: INR 1.3; PROTIME 13.9 Seconds (9.20-11.50)
[2020-06-30 16:00] VITALS: BP 129/34
[2020-06-30 19:00] VITALS: BP 132/47
--- NOTE | 2020-06-30 19:01 | NUR ---
A&O X4, PWD. PT HAVING MULTI LIQ. STOOLS TODAY. SAMPLE OBTAINED AND TAKEN TO LAB. TORRES CATH PUT IN TODAY 16 URDU WITH 10MLS SALINE IN [place]. PT CALLED OUT AT 1900 STATED SHE FELT ANXIOUS AND VITAL SIGNS ARE FOLLOWS TEMP 99.0, B/P 132/47, HEART RATE 114, RESP 16, 99% RA. AFTER TALKING WITH PAITENT AND GIVING HER REASURANCE PT FELT BETTER. WAS ABLE TO LAY DOWN AND WARM BLANKET GIVEN TO HER. C/O PAIN AT 1600 AND RECEIVED FENT. PT CALLED OUT AT 1900 WANTING MORE PAIN MEDICATIONS AND INFORMED HER IT WAS NOT TIME. PT DOES FELL BETTER AFTER WARM BLANKET. C/O NECK PAIN AND BACK PAIN. CALL LIGHT WITHIN REACH. WILL CONTINUE TO MONITOR. PT REMAINS ON FLUID RESTRICTION OF 1500 AND HAD 831 IN TODAY THIS SHIFT.
[2020-06-30 21:30] VITALS: BP 134/46
[2020-07-01 04:53] LABS: HEMATOCRIT 20.8 % (37.0-47.0); MCH 23.4 pg (26.0-34.0); MCHC 31.5 g/dL (28.0-37.0); MCV 74.1 fL (80.0-100.0); MPV 7.9 fl. (7.2-11.1); RBC 2.8 mil/uL (4.20-5.00); RDW-CV 20.4 % (10.5-14.5); WBC 3.4 thou/uL (4.0-11.0)
[2020-07-01 05:09] LABS: HEMOGLOBIN 6.5 gm/dL (12.0-15.0)
[2020-07-01 05:12] LABS: ALBUMIN 2.6 g/dL (3.4-5.0); CALCIUM 8.4 mg/dL (8.5-10.1); CREATININE 1.3 mg/dL (0.6-1.3); MAGNESIUM 1.9 mg/dL (1.8-2.4); POTASSIUM 3.5 mmol/L (3.5-5.1); TOTAL BILIRUBIN 2.8 mg/dL (<0.1-1.0); TOTAL PROTEIN 6.5 g/dL (6.4-8.2)
[2020-07-01 08:00] VITALS: BP 88/26
--- NOTE | 2020-07-01 08:10 | NUR ---
PATIENT HAS RESTED OFF AND ON DURING THE NIGHT. VSS ON RA. PATIENT ANXIOUS AT TIMES. C/O CHEST FEELING HEAVY AND HAVING TROUBLE AT TIMES TAKING A DEEP BREATH. EKG DONE. NOTIFIED. NEW ORDERS GIVEN TO CHECK SERIAL TROPONINS AND TO RESTART HER METOPROLOL AND GIVE ASPIRIN X 1. CRITICAL HGB THIS AM. NOTIFIED AND NEW ORDERS GIVEN TO TRANSFUSE 1 UNIT OF PRBC'S. BLOOD CONSENT SIGNED BY PATIENT. PATIENT CALLED THIS AM AND STATES THAT SHE IS A LITTLE ANXIOUS ABOUT GETTING BLOOD. PATIENT IS UP SBA TO THE BSC. TORRES TO DEPENDENT DRAINAGE WITH YELLOW URINE OUTPUT. BILATERAL LOWER EXTREMITIES EDEMATOUS AND RED. MEDICATIONS GIVEN ORDERED AND CHARTED. IV IN RIGHT FOREARM-SL. FALL PRECAUTIONS IN PLACE AND HOURLY ROUNDS MADE. WILL CONTINUE WITH PLAN OF CARE AND NURSING TO MONITOR.
[2020-07-01 09:28] VITALS: BP 102/48; BP 110/75; BP 115/70; BP 98/36
--- NOTE | 2020-07-01 10:50 | EKG ---
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: AP : 1950 Requested By: Ludy Edge Order Number: [id number] Reading MD: Caleb Cedeno Measurements Intervals [place] Rate: 115 P: 52 CA: 157 QRS: -12 QRSD: 88 T: 156 QT: 330 QTc: 457 Interpretive Statements Sinus tachycardia Repol abnrm suggests ischemia, patricia-lateral leads Compared to ECG 06/28/2020 13:31:50 Early repolarization now present Possible ischemia now present Sinus rate has increased Electronically Signed On 07-01-2020 10:50:04 CABINETMAKER HELPER by Caleb Cedeno [email or web address] <ELECTRONICALLY SIGNED> By: Caleb Cedeno MD, FACC 07/01/201049 38 38 Caleb Cedeno MD, FACC /EPI
[2020-07-01 16:58] VITALS: BP 129/50
[2020-07-01 21:48] VITALS: BP 94/33
[2020-07-02 00:54] VITALS: BP 115/54
[2020-07-02 04:31] LABS: HEMATOCRIT 22.4 % (37.0-47.0); HEMOGLOBIN 7.1 gm/dL (12.0-15.0); MCH 23.9 pg (26.0-34.0); MCHC 31.5 g/dL (28.0-37.0); MPV 8.3 fl. (7.2-11.1); RBC 2.96 mil/uL (4.20-5.00); RDW-CV 21.4 % (10.5-14.5); WBC 2.9 thou/uL (4.0-11.0)
[2020-07-02 04:46] LABS: INR 1.4; PROTIME 14.9 Seconds (9.20-11.50)
[2020-07-02 04:59] LABS: ALBUMIN 2.6 g/dL (3.4-5.0); CALCIUM 7.8 mg/dL (8.5-10.1); CREATININE 1.3 mg/dL (0.6-1.3); MAGNESIUM 1.8 mg/dL (1.8-2.4); TOTAL BILIRUBIN 3.6 mg/dL (<0.1-1.0); TOTAL PROTEIN 6.5 g/dL (6.4-8.2)
--- NOTE | 2020-07-02 06:27 | NUR ---
PT A&OX4 THROUGH OUT SHIFT, VSS ON ROOM AIR, DRIPS INFUSING ORDERED, PT NPO SINCE MIDNIGHT, TORRES IN PLACE, FLUID RESTRICTION MAINTAINED, ISOLATION FOR PENDING C.DIFF MAINTAINED. HOURLY ROUNDINGS COMPLETE, WILL CONTINUE TO MONITOR.
[2020-07-02 07:45] VITALS: BP 130/52
--- NOTE | 2020-07-02 13:27 | 2DMMODE ---
[place] [address] 2 D/M-MODE ECHOCARDIOGRAM Name: ANA DEY Room: [address] IN Cresencio#: [id number] Admission: 06/28/20 Attend Phys: Ludy Edge, Discharge: Date of : 52 Date of Service: 07/02/20 1300 Report #: [id number] THIS REPORT FOR: cc: Ondina Spencer Tammy RNP Holkins, John M. MD [facility] ~ APPROVED REPORT Study performed: 07/02/2020 09:15:01 EXAM: Comprehensive 2D, Doppler, and color-flow Echocardiogram Patient Location: In-Patient Room #: [facility] Status: routine BSA: 2.53 HR: 71 bpm BP: 130/84 mmHg Rhythm: NSR Other Information Study Quality: Good Indications Murmur 2D Dimensions IVSd: 11.46 (7-11mm) LVOT Diam: 19.27 (18-24mm) LVDd: 43.15 mm PWd: 11.87 (7-11mm) Ascending Ao: 23.30 (22-36mm) LVDs: 24.25 (25-40mm) Aortic Root: 27.31 mm Volumes Left Atrial Volume (Systole) LA ESV Index: 30.70 mL/m2 Aortic Valve AoV Peak Teto.: 3.50 m/s AO Peak Gr.: 48.96 mmHg LVOT Max P.58 mmHg AO Mean Gr.: 28.86 mmHg LVOT Mean P.51 mmHg LVOT Max V: 1.28 m/s AO V2 VTI: 86.79 cm LVOT Mean V: 0.87 m/s NIESHA (VTI): 1.16 cm2 LVOT V1 VTI: 34.49 [place] [address] 2 D/M-MODE ECHOCARDIOGRAM Name: ANA DEY Room: [address] IN [facility]#: [id number] Admission: 06/28/20 Attend Phys: Ludy Edge, Discharge: Date of : 52 Date of Service: 07/02/20 [facility] Report #: [id number] Mitral Valve E/A Ratio: 1.29 MV Decel. Time: 200.98 ms MV E Max Teto.: 1.08 m/s MV PHT: 58.28 ms MVA (PHT): 3.77 cm2 TDI E/Lateral E': 9.82 E/Medial E': 12.00 Medial E' Teto.: 0.09 m/s Lateral E' Teto.: 0.11 m/s Pulmonary Valve PV Peak Teto.: 1.17 m/s PV Peak Gr.: 5.45 mmHg Tricuspid Valve RAP Estimate: 5.00 mmHg TR Peak Gr.: 35.43 mmHg RVSP: 40.00 mmHg PA Pressure: 40.00 mmHg Left Ventricle The left ventricle is normal size. There is normal LV segmental wall motion. There is normal left ventricular wall thickness. Left ventricular systolic function is normal. The left ventricular ejection fraction is within the normal range. LVEF is 65%. The left ventricular diastolic function is normal. Right Ventricle The right ventricle is normal size. The right ventricular systolic function is normal. Atria The left atrium size is normal. The right atrium size is normal. Aortic Valve Moderate aortic valve sclerosis. No aortic regurgitation is present. Moderate aortic stenosis. Mitral Valve The mitral valve is normal in structure. Mild mitral regurgitation. No evidence of mitral valve stenosis. Tricuspid Valve The tricuspid valve is normal in structure. Mild tricuspid regurgitation. Moderate [place] [address] 2 D/M-MODE ECHOCARDIOGRAM Name: ANA DEY Ela Room: [address] IN [facility]#: [id number] Admission: 06/28/20 Attend Phys: Ludy Edge, Discharge: Date of : 52 Date of Service: 07/02/20 1300 Report #: [id number] Pulmonic Valve The pulmonary valve is normal in structure. There is no pulmonic valvular regurgitation. Great Vessels The aortic root is normal in size. IVC is normal in size and collapses >50% with inspiration. Pericardium There is no pericardial effusion. <Conclusion> There is normal left ventricular wall thickness. Left ventricular systolic function is normal. The left ventricular ejection fraction is within the normal range. LVEF is 65%. The left ventricular diastolic function is normal. The right ventricle is normal size. The left atrium size is normal. Moderate aortic valve sclerosis. Moderate aortic stenosis. No aortic regurgitation is present. The mitral valve is normal in structure. Mild mitral regurgitation. The tricuspid valve is normal in structure. Mild tricuspid regurgitation. Moderate pulmonary hypertension. IVC is normal in size and collapses >50% with inspiration. There is no pericardial effusion. There is normal LV segmental wall motion. <ELECTRONICALLY SIGNED> By: Caleb Cedeno MD, FACC 07/02/20 1300 1300 99 Caleb Cedeno MD, FACC /INF
--- NOTE | 2020-07-02 14:05 | CON ---
[address] [address] CONSULTATION Name: ANA DEY Room: [address] IN M.R.#: [id number] Admission: 06/28/20 Attend Phys: Ludy Edge MD Discharge: Date of : 52 Report #: [id number] THIS REPORT FOR: //name// cc: Ondina Spencer Tammy RNP ~ DATE OF SERVICE: 06/29/2020 HISTORY OF PRESENT ILLNESS: This is a pleasant 69-year-old female with past medical history significant for breast cancer, status post mastectomy and HOPSON related cirrhosis diagnosed 2 years ago, who presents for evaluation of acute onset diarrhea. The patient reports she began having fever, chills, followed by 9-10 bowel movements per day for the last 4-5 days. She denies any blood in stool. She reports lower abdominal cramps along with nausea. She denies any significant weight loss. PAST MEDICAL HISTORY: The patient has a past history significant for breast cancer and cirrhosis. The patient is also morbidly obese. PAST SURGICAL HISTORY: The patient has history of mastectomy, hysterectomy, cholecystectomy. SOCIAL HISTORY: The patient denies smoking, alcohol or recreational drug use. FAMILY HISTORY: There is no family history of colon cancer or [place] related neoplasia. REVIEW OF SYSTEMS: A comprehensive 10-point review of systems is negative except for what was mentioned in the HPI. PHYSICAL EXAMINATION: VITAL SIGNS: Temperature 37.1, pulse rate 93, respirations 18, blood pressure 127/60. GENERAL: The patient is alert, awake, oriented x 3. HEENT: Pupils are equal, round, reactive to light and accommodation. Mucous membranes are moist. There is no congestion. LUNGS: Clear to auscultation bilaterally. CARDIOVASCULAR: Rate and rhythm regular, S1, S2 present. ABDOMEN: Soft. There is no distention, guarding or rigidity. EXTREMITIES: Trace pitting edema bilaterally and no asterixis. LABORATORY DATA: Hemoglobin 7.4, hematocrit 24.0, platelet count 77, WBC count 2.6. INR 1.2. Sodium 140, potassium 4.3, chloride 106, bicarbonate ____, BUN 40, creatinine 1.2, total bilirubin 2.2, AST 31, ALT 16, alkaline phosphatase 101. IMAGING: Abdomen and pelvis CT, limited study due to body habitus, [place] [address] CONSULTATION Name: DEYKEN CHARLESKIE Ela Room: [address]#: [id number] Admission: 06/28/20 Attend Phys: Ludy Edge MD Discharge: Date of : 52 Report #: [id number] with portal hypertension including splenomegaly and ____, mild abdominal ascites. ASSESSMENT AND PLAN: Pleasant 69-year-old female with history of breast cancer and HOPSON related cirrhosis, presenting for evaluation of acute diarrhea. 1. Acute diarrhea. I would like to get a stool C. diff to rule out Clostridium difficile infection. 2. Cirrhosis. The patient HOPSON related cirrhosis and is morbidly obese. She will need outpatient management for her cirrhosis. 3. Ascites. The patient is currently on 50 of Aldactone and Lasix 40 mg IV b.i.d. Continue the same dose for now. This can be titrated depending on her response. 5. Varices. The patient will need EGD for evaluation of her varices. If the stool C. diff is negative, we can consider performing EGD. 6. HCC screening. The patient's ultrasound did not show any evidence of cirrhotic nodules suspicious for HCC. 6. Encephalopathy. Continue lactulose and rifaximin. Thank you for this consultation. <ELECTRONICALLY SIGNED> By: Jonas Munoz MD 07/02/20 1405 99 [id number] Munoz MD /nt
[2020-07-02 17:41] VITALS: BP 109/50
[2020-07-02 20:15] VITALS: BP 111/39
[2020-07-02 23:17] LABS: URINE BLOOD 3+ (Negative); URINE CLARITY CLEAR; URINE COLOR DARK YELLOW; URINE GLUCOSE-RANDOM NEGATIVE (Negative); URINE KETONES NEGATIVE (Negative); URINE LEUKOCYTES-REFLEX TRACE (Negative); URINE PROTEIN 2+ (Negative); URINE SPECIFIC GRAVITY >= 1.030 (1.005-1.030); URINE UROBILINOGEN 0.2 E.U./dl (0.2-1.0)
[2020-07-02 23:18] LABS: URINE BILIRUBIN 1+ (Negative); URINE NITRITE-REFLEX POSITIVE (Negative)
[2020-07-02 23:30] LABS: BACTERIA-REFLEX >30 Many /HPF (None Seen); ICTOTEST (BILI CONFIRMATORY) Negative (Negative); MUCUS 4-6 Moderate strn/LPF (None Seen); SQUAMOUS 0-3 Few /LPF (0-3); TRANSITIONAL EPITHEL CELL 0-3 Few /LPF (None Seen); URINE RBC >20 Many /HPF (0-2); URINE WBC-REFLEX 6-15 Few /HPF (0-5)
[2020-07-02 23:31] LABS: CRYSTALS None Seen /LPF (None Seen); FINE GRANULAR CASTS 0-3 Few /LPF (None Seen)
--- NOTE | 2020-07-03 00:28 | NUR ---
NIGHT SUPERVISER RETRIEVED 2 RINGS FROM EGD PACU. THESE WERE HAND DELIVERED TO PATIENT. STOOL AND URINE SAMPLES SENT TO LAB THIS EVENING. STOOL NEGATIVE FOR OCCULT BLOOD. URINE SAMPLE WITH SOME ABNORMALITIES. RESULTS SEND BY MESSAGE TO PHYSICIAN.
--- NOTE | 2020-07-03 00:40 | NUR ---
MESSAGE REGARDING UA RESULTS RECEIVED BY PHYSICIAN.
[2020-07-03 04:48] LABS: HEMATOCRIT 24.2 % (37.0-47.0); HEMOGLOBIN 7.6 gm/dL (12.0-15.0); MCH 24.3 pg (26.0-34.0); MCHC 31.4 g/dL (28.0-37.0); MCV 77.5 fL (80.0-100.0); MPV 8.3 fl. (7.2-11.1); RBC 3.13 mil/uL (4.20-5.00); RDW-CV 21.1 % (10.5-14.5); WBC 3.8 thou/uL (4.0-11.0)
[2020-07-03 04:58] LABS: INR 1.3
[2020-07-03 05:05] LABS: ALBUMIN 2.6 g/dL (3.4-5.0); CREATININE 1.3 mg/dL (0.6-1.3); MAGNESIUM 1.9 mg/dL (1.8-2.4); POTASSIUM 4.1 mmol/L (3.5-5.1); TOTAL BILIRUBIN 3.1 mg/dL (<0.1-1.0); TOTAL PROTEIN 6.4 g/dL (6.4-8.2)
--- NOTE | 2020-07-03 05:12 | NUR ---
PATIENT HAS REMAINED ALERT AND ORIENTED X 4 THROUGHOUT THE SHIFT AND RESTING AT INTERVALS ON HOURLY ROUNDS. UP TO BSC X 4-5 TIMES. SMALL SOFT FORMED STOOLS X 3. TORRES PRESENT WITH DARK YELLOW URINE. FLUID RESTRICTION MAINTAINED. VITAL SIGNS STABLE. C.DIFF RESULTS STILL PENDING. ISOLATION MAINTAINED PENDING RESULTS. MEDICATED X 1 FOR NAUSEA WITHOUT EMESIS. CONTINUE TO MONITOR.
[2020-07-03 08:03] VITALS: BP 91/38
[2020-07-03] MEDS ORDERED: SPIRONOLACTONE25 MG PO (13:55)
[2020-07-03] MEDS ORDERED: LACTULOSE20 GM/30 M PO (13:55)
[2020-07-03] MEDS ORDERED: LASIX 40 MG TAB40 M1 PO (13:56)
[2020-07-03 14:15] VITALS: BP 91/38
[2020-07-03 15:54] VITALS: BP 91/38
--- NOTE | 2020-07-03 16:07 | NUR ---
PT TO DISCHARGE HOME TODAY WITH HOME HEALTH. DISCUSSED WITH HER AND . SHE HAS NEVER HAD HH BEFORE. TOLD HER HH AGENCIES THAT CONTRACT WITH HER INSURANCE. SHE CHOSE [facility]. VENDOR CHOICE FORM SIGNED. SHE IS AWARE THEY WILL CALL HER TO SET UP APPTS.
[2020-07-03 16:13] VITALS: BP 91/38
--- NOTE | 2020-07-03 16:14 | NUR ---
PT DISCHARGED HOME WITH HOME HEALTH. COPY OF DISCHARGE INSTRUCTIONS TO PT WITH EXPLAINATION. PT VERBALIZED UNDERSTANDING. PRESCRIPTIONS SENT TO PT PHARMACY BY DR GARZA. IV ACCESS AND TORRES CATHETER REMOVED.
--- NOTE | 2020-07-06 09:02 | CON ---
[address] [address] CONSULTATION Name: ANA DEY Room: [address] IN M.R.#: [id number] Admission: 06/28/20 Attend Phys: Ludy Edge MD Discharge: 07/03/20 Date of : 52 Report #: [id number] THIS REPORT FOR: //name// cc: Ondina Spencer Tammy RNP ~ INDICATION: Elevated troponin. HISTORY OF PRESENT ILLNESS: The patient is a very pleasant 69-year-old white female who is well known to myself. She was admitted to the hospital on the . The patient was admitted on the with falls and weakness. She had been having diarrhea for several days and had become dehydrated. With this, she had become confused and fatigued. Initial evaluation suggested that she had decompensated cirrhosis and hepatic encephalopathy. She also was noted to have cellulitis of her lower extremities. She has diastolic heart failure with acute exacerbation. She is grossly volume overloaded at this time and being diuresed. In the setting of all of this, she had elevated troponins. She is not having chest discomfort to suggest angina. Stress testing in the recent past showed normal LV function and no evidence of ischemia. She does have a history of dpwqoyef-ns-zqcfcv aortic stenosis by echocardiogram. She has been in the hospital several days now. Her dehydration has resolved. Her edema is slowly improving. She is undergoing gastroenterologic evaluation at this time. She is without specific cardiac complaint at this time. She is not having orthopnea. She is somewhat limited in activity due to morbid obesity. PAST MEDICAL HISTORY: 1. Morbid obesity. 2. Nonalcoholic cirrhosis of the liver. 3. Chronic diastolic heart failure. 4. Scdacdrn-nm-ufusqb aortic stenosis. 5. Hyperlipidemia. 6. Hypothyroidism, status post thyroid irradiation. 7. Rheumatoid arthritis. 8. Psoriatic arthritis. 9. History of Graves' disease. 10. Fibromyalgia. 11. History of lymphoma. 12. Right breast tumor removal. 13. Lupus. 14. GERD. 15. Status post hysterectomy. 16. Status post cholecystectomy. HOME MEDICATIONS: Albuterol every 4 hours p.r.n., atorvastatin 40 mg every other day, buspirone 10 mg t.i.d., vitamin D3 5000 units daily, doxycycline 100 mg b.i.d., Cymbalta 60 mg b.i.d., Nexium 40 mg b.i.d., Flovent inhaler 1 [place] [address] CONSULTATION Name: ANA DEY Room: [address]#: [id number] Admission: 06/28/20 Attend Phys: Ludy Edge MD Discharge: 07/03/20 Date of : 52 Report #: [id number] every 4 hours p.r.n., folate 1 mg 2 tablets daily, gabapentin 600 mg at bedtime, Mucinex 600 mg every 6 hours, Lidoderm patch daily, Cytomel 25 mcg 4 tablets daily, metoprolol succinate 100 mg daily, Singulair 10 mg at bedtime, OxyContin 30 mg daily, oxycodone IR 5 mg 1-2 tablets every 12 hours p.r.n., Carafate 1 gram q.i.d., Aristocort topically as directed, hydroxychloroquine 100 mg daily. ALLERGIES: ADHESIVE TAPE, CODEINE, IODINE, LATEX, SYNTHROID, MIDODRINE, MACROBID, AND SULFA. SOCIAL HISTORY: The patient is . 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 She does not smoke now nor has she ever. She does not drink alcohol. FAMILY HISTORY: Positive for coronary artery disease and sudden . REVIEW OF SYSTEMS: Positive for cough productive of clear sputum with a history of pneumonia. Positive for some atypical chest discomfort and occasional palpitations. She has dyspnea on exertion without orthopnea. She reports a history of heart murmur. She reports lower extremity swelling. She has thyroid disease. She has had vomiting and diarrhea. She denies fevers with this. She has a history of anemia. She has a history of breast cancer of the right breast. She reports rashes and cellulitis of the lower extremities. She wears glasses without acute visual changes. She has diminished hearing. She denies epistaxis. She does wear dentures. Systems of review otherwise unremarkable. PHYSICAL EXAMINATION: VITAL SIGNS: Blood pressure 130/84, pulse 75 and regular. GENERAL: This is a morbidly obese, pleasant white male, in no distress. Mood and affect appropriate. HEENT: Head is normocephalic, atraumatic. Extraocular muscles intact. The patient is wearing glasses. Mucous membranes are moist. NECK: Shows a thick neck without obvious jugular venous distention. CHEST: Reveals somewhat diminished breath sounds without wheezes or rales. CARDIOVASCULAR: Reveals a regular rhythm with grade 3/6 systolic ejection murmur. ABDOMEN: Reveals a very protuberant abdomen that is soft without tenderness. EXTREMITIES: Shows 3 to 4+ edema with some erythematous changes of the skin on the right lower extremity. LABORATORY DATA: Reviewed. Sodium 138, potassium 4.0, chloride 104, bicarbonate 28, BUN 13, creatinine 1.3, serum glucose 118. Troponin is less than 0.06, 0.08, 0.17 and 0.41 sequentially. NT-proBNP was 719. INR 1.4. White blood cell count 2.9, hemoglobin 7.1, platelet count 75,000. IMPRESSION AND RECOMMENDATIONS: 1. Elevated troponin. Doubt acute coronary syndrome. I suspect this is related to her underlying aortic stenosis and strain [place] [address] CONSULTATION Name: ANA DEY Room: [address]#: [id number] Admission: 06/28/20 Attend Phys: Ludy Edge MD Discharge: 07/03/20 Date of : 52 Report #: [id number] would not pursue further invasive evaluation at this time. 2. Qbquranw-rs-xhdqnz aortic stenosis by echocardiogram last December. I am repeating a limited echo today to further evaluate aortic valve. 3. Chronic and acute diastolic heart failure. The patient is presently on oral Lasix and diuresing slowly. Would consider IV Lasix while in hospital. 4. Cirrhosis per Gastroenterology. 5. Anemia, possibly blood loss anemia. The patient is having an EGD today. The patient is stable from a cardiac standpoint for EGD. 6. Cellulitis. The patient is on antibiotics. Her area of erythema appears to be improving per patient. 7. Morbid obesity. 8. Pancytopenia. 9. Hypercholesterolemia, on medication. <ELECTRONICALLY SIGNED> By: Toni Dubois MD, [facility] 07/06/[id number] [facility] Medical Centerbry Dubois MD, CLARE /nt
== END 2020-07-03 16:17 | disposition home health service (06) | DRG 441 ==
LOC: M.ERS 12:54 → M.3W 16:35 → M.TBA-ER 16:35 → M.3W 18:48
PROVIDERS: Internal Medicine; Nurse Practitioner Adult Health; Nurse Practitioner Family; ADMIT Internal Medicine; ATTEND Internal Medicine
PROC: 30233N1 Transfusion of Nonautologous Red Blood Cells into Peripheral Vein, Percutaneous Approach (ICD-10-PCS; principal; 2020-07-01)
PROC: 0DJ08ZZ Inspection of Upper Intestinal Tract, Via Natural or Artificial Opening Endoscopic (ICD-10-PCS; 2020-07-02)
DX: K72.00 Acute and subacute hepatic failure without coma (principal); R65.11 Systemic inflammatory response syndrome (SIRS) of non-infectious origin with acute organ dysfunction; I50.33 Acute on chronic diastolic (congestive) heart failure; E44.0 Moderate protein-calorie malnutrition; Z68.43 Body mass index [BMI] 50.0-59.9, adult; K76.6 Portal hypertension; D61.818 Other pancytopenia; L03.115 Cellulitis of right lower limb; L03.116 Cellulitis of left lower limb; R19.7 Diarrhea, unspecified; E87.6 Hypokalemia; E66.01 Morbid (severe) obesity due to excess calories; E11.9 Type 2 diabetes mellitus without complications; K58.9 Irritable bowel syndrome, unspecified; G89.29 Other chronic pain; K21.9 Gastro-esophageal reflux disease without esophagitis; G43.909 Migraine, unspecified, not intractable, without status migrainosus; M06.9 Rheumatoid arthritis, unspecified; E78.5 Hyperlipidemia, unspecified; M79.7 Fibromyalgia; E05.00 Thyrotoxicosis with diffuse goiter without thyrotoxic crisis or storm; D64.9 Anemia, unspecified; K31.89 Other diseases of stomach and duodenum; I35.0 Nonrheumatic aortic (valve) stenosis; E78.00 Pure hypercholesterolemia, unspecified; M19.90 Unspecified osteoarthritis, unspecified site; K75.81 Nonalcoholic steatohepatitis (NASH); K74.60 Unspecified cirrhosis of liver; Z20.828 Contact with and (suspected) exposure to other viral communicable diseases; Z90.710 Acquired absence of both cervix and uterus; Z92.3 Personal history of irradiation; Z79.899 Other long term (current) drug therapy; Z88.1 Allergy status to other antibiotic agents; Z88.5 Allergy status to narcotic agent; Z90.49 Acquired absence of other specified parts of digestive tract; Z88.2 Allergy status to sulfonamides; Z88.8 Allergy status to other drugs, medicaments and biological substances; Z91.040 Latex allergy status; Z85.3 Personal history of malignant neoplasm of breast; Z90.10 Acquired absence of unspecified breast and nipple; Z23 Encounter for immunization

== ENCOUNTER 2020-07-22 09:14 | Inpatient (IN) | payer OTHER ==
[~2020-07-22] VITALS: Ht 165.1 cm; Wt 165.7 kg
--- NOTE | ~2020-07-22 | CON ---
[address] [address] CONSULTATION Name: ANA DEY Room: [address] IN M.R.#: [id number] Admission: 07/22/20 Attend Phys: Floyd Kuhn MD Discharge: Date of : 52 Report #: [id number] THIS REPORT FOR: //name// cc: Ondina Spencer Tammy RNP ~ DATE OF SERVICE: 07/23/2020 Please note at the time of this dictation, the patient was seen and physically examined by myself. REASON FOR CONSULTATION: Melanotic stool, questionable GI bleed. HISTORY OF PRESENT ILLNESS: This 69-year-old female who was recently seen by us back in mid June for a low hemoglobin of 6.5, she underwent an EGD by Dr. Munoz that showed mild portal hypertension, no varices at that particular time. Her last colonoscopy was in 2016 that showed polyps, tubular adenoma. She had some external hemorrhoids and some diverticulosis at that time. The patient states she has not been taking her lactulose at home. She had been noticing that she was getting a little bit more foggy as she puts it at home, that got worse, which originally is what brought her in as that she just did not feel like herself. She states that yesterday when she was having bowel movements the first two were very hard and then she finally got some soft, but prior to that she was not going as regularly as she should and she was not taking any lactulose at home. She denies any nausea, vomiting or any upper abdominal pain. She did have a little bit of lower abdominal discomfort that was noted. She states her appetite has been good and she denies taking any NSAIDs, when she has been at home. ALLERGIES: SULFA, IODINE, CODEINE, ADHESIVE TAPE, LATEX, LEVOTHYROXINE, MIDODRINE, NITROFURANTOIN, AND SULFA. MEDICATIONS: At home, spironolactone, lactulose, Lasix and albuterol, duloxetine, Singulair, gabapentin, vitamin D, oxycodone, Toprol, Nexium, Flovent, buspirone, lidocaine, albuterol sulfate, Aristocort, Lipitor and folic acid. PAST MEDICAL HISTORY: Morbid obesity, irritable bowel syndrome, osteoarthritis, chronic pain, GERD, hyperlipidemia. She had a history of lupus, diabetes, thyroid issues, migraines, rheumatoid arthritis, psoriatic arthritis, Graves' disease, fibromyalgia, HOPSON with cirrhosis. History of lymphoma, fibromyalgia. PAST SURGICAL HISTORY: Cholecystectomy, hysterectomy and [place] [address] CONSULTATION Name: ANA DEY Room: [address] IN .R.#: [id number] Admission: 07/22/20 Attend Phys: Floyd Kuhn MD Discharge: Date of : 52 Report #: [id number] FAMILY HISTORY: Negative for any GI or female cancers. SOCIAL HISTORY: Denies any alcohol, tobacco or illegal drug use and lives with her . REVIEW OF SYSTEMS: Twelve-point review of systems is essentially negative except what is mentioned in the HPI. PHYSICAL EXAMINATION: VITAL SIGNS: Temperature 36.5, pulse 82, respirations 16, blood pressure 124/64. HEART: Regular rate and rhythm. LUNGS: Clear, but diminished. ABDOMEN: Soft, morbidly obese with a large pannus with some left lower quadrant abdominal pain noted. LABORATORY DATA: Hemoglobin on admission was 8.4, she is 7.6, white count is 3, platelets 69, ammonia was 62. PT 13.5, INR is 1.3, BUN is normal at 11 with a GFR of 55, total bilirubin is 2.7, alkaline phosphatase 93, ALT is 12, AST is 27. Chest x-ray, no acute cardiopulmonary process was noted. IMPRESSION: 1. Hepatic encephalopathy. 2. Abdominal pain, left lower quadrant. 3. Melanotic stool, questionable. 4. HOPSON with cirrhosis. 5. Elevated bilirubin. 6. Pancytopenia. 7. Morbid obesity. PLAN: 1. EGD and colonoscopy tomorrow with Dr. Andrew. 2. We will discontinue her Carafate in of her GFR, will change her Lasix back to 20 mg daily and spironolactone 50 mg daily. 3. Further recommendations to be made once the procedure has been performed. Thank you for allowing us to participate in this patient's care. Please do not hesitate to call with any questions in regard to this consult. By: [id number] Munoz MD /nt
--- NOTE | ~2020-07-22 | PROC ---
[address] [address] PROCEDURE REPORT Name: ANA DEY Room: [address] IN .R.#: [id number] Admission: 07/22/20 Attend Phys: Floyd Kuhn MD Discharge: 07/25/20 Date of : 52 Report #: [id number] THIS REPORT FOR: cc: Ondina Spencer Tammy RNP ~ [facility],Medical Records Staff For GI report, please see the Provation report in Perceptive 7 content. By: [id number] Records Staff [facility] /JASMINE
--- NOTE | ~2020-07-22 | CON ---
[facility] [address] [place] [address] CONSULTATION Name: ANA DEY Room: [address] IN M.R.#: [id number] Admission: 07/22/20 Attend Phys: Floyd Kuhn MD Discharge: Date of : 52 Report #: [id number] THIS REPORT FOR: //name// cc: Ondina Spencer Tammy RNP ~ DATE OF SERVICE: 07/24/2020 REQUESTING PHYSICIAN: Floyd Kuhn M.D. REASON FOR CONSULTATION: Iron deficiency anemia. HISTORY OF PRESENT ILLNESS: The patient 69-year-old woman with history of liver cirrhosis, esophageal varices, who was admitted to the hospital with altered mental status. She reports that she had melena the night before admission. She was found to have elevated ammonia level. Gastroenterology consult is requested. She underwent colonoscopy this morning. Hematology consult is requested. She has a history of previous gastrointestinal bleeding, iron deficiency anemia. She was seen by Dr. Gallardo during previous admission approximately a month ago as the patient tells me she was given IV iron. She has tried oral iron in the past, but could not tolerate it. She is doing okay. She is alert. She is oriented. She does not have melena or hematochezia. PAST MEDICAL HISTORY: Significant for liver cirrhosis, obesity, hypertension, history of iron deficiency anemia and esophageal varices. SOCIAL HISTORY: She is . at bedside, supportive. She does not have history of alcohol abuse. Does not smoke. PHYSICAL EXAMINATION: GENERAL: Reveals obese woman, not in acute distress. VITAL SIGNS: Blood pressure 122/72, heart rate is 81, respiration 14, temperature 94.9. NECK: Supple. HEART: Normal S1, S2. ABDOMEN: Obese. SKIN: Does not reveal any rash. There is no supraclavicular lymphadenopathy. LABORATORY DATA: White count 2.7, hemoglobin 8.5, platelets 85, MCV 81.8, RDW 26.1. Ferritin 56. Serum iron 27, saturation 10, folate 19, B12 803, ammonium 62. ASSESSMENT AND PLAN: 1. Iron deficiency. The patient recently received IV iron. She cannot tolerate oral iron. I am not sure the patient needs intravenous [place] [address] CONSULTATION Name: ANA DEY Ela Room: [address]#: [id number] Admission: 07/22/20 Attend Phys: Floyd Kuhn MD Discharge: Date of : 52 Report #: [id number] report some melena, but I am not sure that she has a large volume blood loss. I am planning to check reticulocyte count, ferritin level and soluble transferrin receptor. We will follow labs. If necessary, we will give her IV iron once. 2. 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 Thank you very much for allowing me to participate in care of this patient. We will follow the patient with you. By: 2108 2334Mauricio Akbar MD /nt
[~2020-07-22 09:14] MED LIST changes: +LACTULOSE20 GM/30 M PO; +LASIX 40 MG TAB40 M1 PO; +SPIRONOLACTONE25 MG PO
[2020-07-22 09:34] VITALS: BP 149/68
--- NOTE | 2020-07-22 10:05 | NUR ---
IV INSERTED BY JIMMIE PENG.
[2020-07-22 10:25] LABS: ABSOLUTE EOSINOPHILS 0.1 thou/uL (0.0-0.7); ABSOLUTE LYMPHOCYTES 0.6 thou/uL (0.8-5.3); ABSOLUTE MONOCYTES 0.4 thou/uL (0.0-1.2); ABSOLUTE NEUTROPHILS 2.5 thou/uL (1.6-8.1); BASOPHILS 0.4 %; EOSINOPHILS 1.5 %; HEMATOCRIT 26.6 % (37.0-47.0); HEMOGLOBIN 8.4 gm/dL (12.0-15.0); LYMPHOCYTES 15.7 %; MCH 25.7 pg (26.0-34.0); MCHC 31.4 g/dL (28.0-37.0); MCV 81.6 fL (80.0-100.0); MONOCYTES 11.6 %; MPV 7.9 fl. (7.2-11.1); NUCLEATED RBCS 0 /100WBC; PLATELET COUNT* 79 thou/uL (150-400); POLYS 70.8 %; RBC 3.26 mil/uL (4.20-5.00); RDW-CV 25.6 % (10.5-14.5); WBC 3.5 thou/uL (4.0-11.0)
[2020-07-22 10:30] LABS: POTASSIUM 3.9 mmol/L (3.5-5.1)
[2020-07-22 10:31] LABS: URINE BILIRUBIN NEGATIVE (Negative); URINE BLOOD 2+ (Negative); URINE CLARITY CLEAR; URINE COLOR YELLOW; URINE GLUCOSE-RANDOM NEGATIVE (Negative); URINE KETONES NEGATIVE (Negative); URINE LEUKOCYTES-REFLEX NEGATIVE (Negative); URINE NITRITE-REFLEX NEGATIVE (Negative); URINE PROTEIN NEGATIVE (Negative); URINE SPECIFIC GRAVITY 1.025 (1.005-1.030)
[2020-07-22 10:40] LABS: ALBUMIN 2.4 g/dL (3.4-5.0); TOTAL BILIRUBIN 2.7 mg/dL (<0.1-1.0)
[2020-07-22 10:54] LABS: APTT 26.7 Seconds (25.0-31.3); INR 1.3; PROTIME 13.5 Seconds (9.20-11.50)
[2020-07-22 10:57] LABS: BACTERIA-REFLEX 1-9 Few /HPF (None Seen); CASTS None Seen /LPF (None Seen); CRYSTALS None Seen /LPF (None Seen); MUCUS None Seen strn/LPF (None Seen); SQUAMOUS 4-10 Moderate /LPF (0-3); URINE RBC 3-10 Few /HPF (0-2); URINE WBC-REFLEX 0-5 Rare /HPF (0-5)
[2020-07-22 15:14] VITALS: BP 104/57
--- NOTE | 2020-07-22 16:43 | EKG ---
[place] [address] ELECTROCARDIOGRAM REPORT Name: ANA DEY Room: [address] ADM IN M.R.#: [id number] Admission: 07/22/20 Attend Phys: Floyd Kuhn, Discharge: Date of : 52 Date of Service: 07/22/20 1025 Report #: [id number] THIS REPORT FOR: //name// [facility] ED Test Date: 2020-07-22 Test Time: 10:25:17 Pat Name: ANA DEY Department: Room: [facility] Gender: F Parts Room Associate: JAIR : 1950 Requested By: Stevo Ramirez Order Number: [id number] MD: Ron Montoya Measurements Intervals [place] Rate: 88 P: 45 AL: 141 QRS: -18 QRSD: 92 T: 27 QT: 406 QTc: 492 Interpretive Statements Sinus rhythm poor r wave progression Borderline left axis deviation Borderline prolonged QT interval Compared to ECG 06/30/2020 20:39:38 Sinus tachycardia no longer present Early repolarization no longer present Possible ischemia no longer present Electronically Signed On 07-22-2020 16:42:52 ELECTRON BEAM OPERATOR by Ron Montoya [email or web address] <ELECTRONICALLY SIGNED> By: Ron Montoya MD, FACC 07/22/20 1642 1025 1025 Ron Montoya MD, [facility] /EPI
--- NOTE | 2020-07-22 17:50 | NUR ---
PT ADMITTED TO ROOM 220 VIA CART FROM ED, REPORT RECEIVED FROM JIMMIE BLANCO. PT C/O CHEST PAIN 03/30, TROPS NEG X3. PT HAS HX FALLS AT HOME, IS UP W/ 1 PLUS WALKER. PT STATES SHE HAS BEEN INCREASINGLY CONFUSED OVER LAST FEW DAYS WELL, IS AOX4 HERE. PT STATES SHE NOTICED COFFEE GROUND BM T-1. ADMISSION ASSESSMENT AND HX COMPLETED CHARTED, PT ORIENTED TO ROOM AND CALL LIGHT, MEDS PER MAR, HOURLY ROUNDING OBSERVED, FALL PRECAUTIONS IN PLACE, CALL LIGHT W/IN REACH, SEPSIS SCREENING COMPLETE, NEGATIVE.
[2020-07-22 20:20] VITALS: BP 117/37
[2020-07-23] VITALS (7 sets, daily range): BP systolic 113–176; BP diastolic 36–90
[2020-07-23 04:31] LABS: ABSOLUTE EOSINOPHILS 0.1 thou/uL (0.0-0.7); ABSOLUTE LYMPHOCYTES 0.9 thou/uL (0.8-5.3); ABSOLUTE MONOCYTES 0.4 thou/uL (0.0-1.2); ABSOLUTE NEUTROPHILS 1.7 thou/uL (1.6-8.1); BASOPHILS 0.8 %; EOSINOPHILS 2.9 %; HEMATOCRIT 24.6 % (37.0-47.0); HEMOGLOBIN 7.6 gm/dL (12.0-15.0); MCHC 30.8 g/dL (28.0-37.0); MCV 84.3 fL (80.0-100.0); MONOCYTES 12.9 %; MPV 8.3 fl. (7.2-11.1); NUCLEATED RBCS 0 /100WBC; PLATELET COUNT* 69 thou/uL (150-400); POLYS 55.4 %; RBC 2.92 mil/uL (4.20-5.00); RDW-CV 26.7 % (10.5-14.5)
[2020-07-23 05:49] LABS: CALCIUM 8.5 mg/dL (8.5-10.1); POTASSIUM 3.5 mmol/L (3.5-5.1)
--- NOTE | 2020-07-23 06:33 | NUR ---
ASSUMMED PT'S CARE @ 1900. ALERT AND ORIENTED. DIASTOLIC LOW BEGINING OF SHIFT BUT DID GO UP WITH SUBSEQENT CHECKS. MEDS GIVEN PER EMAR. PAIN MED GIVEN THIS SHIFT. 2 LIQUID BMs NOTED THIS SHIFT. PT STB TO BATHROOM. SOMETIMES UNSTEADY ON FEET. EDUCATED ON USE OF WALKER. PT DECLINED USING WALKER. INSULIN NOT INDICATED THIS SHIFT. PT HAS REDNESS TO RIGHT LOWER LEG. PT AN OPEN SPOT ON THAT RED AREA. FALL PRECAUTIONS IN PLACE. CALL LIGHT WITHIN REACH. WILL CONTINUE TO MONITOR.
[2020-07-23 06:39] LABS: ANISOCYTOSIS 1+; PLATELET ESTIMATE DECREASED
--- NOTE | 2020-07-23 09:18 | NUR ---
CM SPOKE TO THE PT TO DISCUSS CM ASSESSMENT. PT A&O. PT RESIDES AT HOME WITH SPOUSE AND SON AND THEY ASSIST THE PT WITH CARES NEEDED. PT AND SON DO ALL COOKING, CLEANING, AND LAUNDRY. PT USES A WALKER FOR MOBILITY. [facility] PT HAS [facility] HX OF SNF. CM WILL REMAIN AVAILABLE TO ASSIST AND FOLLOW NEEDED.
--- NOTE | 2020-07-23 18:11 | NUR ---
ASSUMED PT CARE AT 0730, PT AOX4, NO C/O PAIN INITIALLY BUT C/O HEADACHE AND BACK PAIN THIS AFTERNOON TREATED W/ PRN TYLENOL W/ RELIEF. PT WORKED W/ GI TODAY AND ORDERS RECEIVED FOR EGD/COLON TOMORROW, BOWEL PREP STARTED AND PT TOLERATING WELL. PT GOAL IS TO CONTINUE BOWEL PREP UNTIL CLEAR AND INCREASE ACTIVITY. AM ASSESSMENT CHARTED, MEDS PER MAR, HOURLY ROUNDING OBSERVED, FALL PRECAUTIONS IN PLACE, CALL LIGHT W/IN REACH.
[2020-07-24 05:16] VITALS: BP 140/52
--- NOTE | 2020-07-24 07:10 | NUR ---
CHANGE OF SHIFT REPORT GIVEN PATIENT SEEN AT BEDSIDE, IN BED ASLEEP ASSUMED PATIENT CARE
[2020-07-24 08:00] VITALS: BP 158/62
[2020-07-24 10:44] LABS: HEMATOCRIT 26.5 % (37.0-47.0); HEMOGLOBIN 8.5 gm/dL (12.0-15.0); MCH 26.3 pg (26.0-34.0); MCHC 32.2 g/dL (28.0-37.0); MCV 81.8 fL (80.0-100.0); MPV 8.1 fl. (7.2-11.1); NUCLEATED RBCS 0 /100WBC; PLATELET COUNT* 85 thou/uL (150-400); RBC 3.23 mil/uL (4.20-5.00); RDW-CV 26.1 % (10.5-14.5); WBC 2.7 thou/uL (4.0-11.0)
[2020-07-24 10:49] LABS: CALCIUM 8.7 mg/dL (8.5-10.1); POTASSIUM 3.5 mmol/L (3.5-5.1)
[2020-07-24 11:26] LABS: ABSOLUTE EOSINOPHILS 0.1 thou/uL (0.0-0.7); ABSOLUTE LYMPHOCYTES 0.5 thou/uL (0.8-5.3); ABSOLUTE MONOCYTES 0.4 thou/uL (0.0-1.2); ABSOLUTE NEUTROPHILS 1.7 thou/uL (1.6-8.1); ATYPICAL LYMPHS 3 %; ATYPICAL MONONUCLEARS 1 %; HYPOCHROMASIA 2+; PLATELET ESTIMATE DECREASED
[2020-07-24 11:27] LABS: ANISOCYTOSIS 3+; MICROCYTES 2+; OVALOCYTES 1+; TEARDROPS 1+
[2020-07-24 15:37] LABS: HEMATOCRIT 22.4 % (37.0-47.0); HEMOGLOBIN 7.1 gm/dL (12.0-15.0); MCH 25.9 pg (26.0-34.0); MCHC 31.7 g/dL (28.0-37.0); MCV 81.7 fL (80.0-100.0); MPV 8.6 fl. (7.2-11.1); RBC 2.75 mil/uL (4.20-5.00); RDW-CV 25.6 % (10.5-14.5); WBC 2.3 thou/uL (4.0-11.0)
[2020-07-24 17:00] VITALS: BP 115/40
[2020-07-24 19:15] VITALS: BP 111/42
--- NOTE | 2020-07-25 01:57 | NUR ---
ASSUMED CARE OF PT AT 1900. PT IS ALERT AND ORIENTED. VSS. PERRLA. NO COMPLAINTS OF PAIN. PT IS HAVING SOME BOWEL INCONTINANCE. PT IS VERY TIRED FROM BOWEL PREP THE NIGHT BEFORE. PT IS IN SINUS RYTHM ON THE TELEMETRY. PT IS RESTING COMFORTABLY IN BED. RESPIRATIONS ARE EVEN AND NONLABORED. WILL CONTINUE TO MONITOR PT.
[2020-07-25 05:22] VITALS: BP 122/53
[2020-07-25 08:00] VITALS: BP 102/36
--- NOTE | 2020-07-25 08:00 | NUR ---
AM ASSESSMENT COMPLETE, DEFER TO COMPUTER CHARTING. TRIPE WASHER TRACKING SR. ALERT ORIENTED, FORGETFUL. DENIES CHEST PAIN, DIZZINESS, NAUSEA OR ANY DISCOMFORT AT THIS TIME. ROOM AIR, NO SIGN OF RESPIRATORY DISTRESS. CALL LIGHT WITHIN REACH. WILL MONITOR.
[2020-07-25 08:23] LABS: ABSOLUTE EOSINOPHILS 0.1 thou/uL (0.0-0.7); ABSOLUTE LYMPHOCYTES 0.6 thou/uL (0.8-5.3); ABSOLUTE MONOCYTES 0.2 thou/uL (0.0-1.2); ABSOLUTE NEUTROPHILS 1.2 thou/uL (1.6-8.1); BASOPHILS 0.8 %; EOSINOPHILS 3.7 %; HEMATOCRIT 25.4 % (37.0-47.0); HEMOGLOBIN 7.7 gm/dL (12.0-15.0); LYMPHOCYTES 26.8 %; MCH 25.3 pg (26.0-34.0); MCHC 30.2 g/dL (28.0-37.0); MCV 83.8 fL (80.0-100.0); MONOCYTES 9.8 %; MPV 8.3 fl. (7.2-11.1); NUCLEATED RBCS 0 /100WBC; PLATELET COUNT* 65 thou/uL (150-400); POLYS 58.9 %; RBC 3.03 mil/uL (4.20-5.00); RDW-CV 25.7 % (10.5-14.5); WBC 2.1 thou/uL (4.0-11.0)
[2020-07-25 08:46] LABS: ALBUMIN 2.2 g/dL (3.4-5.0); CREATININE 0.8 mg/dL (0.6-1.3); POTASSIUM 3.5 mmol/L (3.5-5.1); TOTAL BILIRUBIN 1.5 mg/dL (<0.1-1.0); TOTAL PROTEIN 6.7 g/dL (6.4-8.2)
[2020-07-25 10:02] VITALS: BP 102/36
[2020-07-25] MEDS ORDERED: XIFAXAN550 M1 PO (10:38)
--- NOTE | 2020-07-25 11:43 | NUR ---
CM INFORMED BY PHYSICIAN OF PLAN TO D/C PT HOME TODAY WITH HH. PT ON-SERVICE WITH [facility] PRIOR TO ADMIT AND REQUEST TO RESUME SERVICE WITH [facility] AT D/C. CM SPOKE TO [facility] AND THEY CONFIRM ABILITY TO RESUME HH FOR PT. [facility] WILL CONTACT THE PT TO ARRANGE A TIME TO VISIT. CM WILL REMAIN AVAILABLE TO ASSIST AND FOLLOW NEEDED. DANN PHONE: [phone] FAX: [phone]
[2020-07-25 12:36] VITALS: BP 140/57
[2020-07-25 15:41] VITALS: BP 140/57
--- NOTE | 2020-07-25 15:53 | NUR ---
DISCHARGE ORDERS RECEIVED. METAL PATTERNMAKER APPRENTICE AND SALINE LOCK DC'D. PATIENT AND EDUCATED ON DISCHARGE INSTRUCTIONS, VERBALIZED UNDERSTANDING - GIVEN WRITTEN DISCHARGE INSTRUCTIONS FOR RENFORCEMENT TEACHING. DC'D TO HOME IN STABLE CONDITION ACCOMPANIED BY WITH ALL PERSONAL BELONGINGS VIA W/C.
--- NOTE | 2020-07-26 19:16 | NUR ---
Called prior auth line for an update on prior auth for xifaxan 500mg BID. Per contracts representative the prior auth was denied due to other meds not being tried and failed before submitting for auth. Denial letter to be faxed to fax machine with instructions to resubmit auth. Ref # [id number]. Will check with doctor to see if resubmitting auth is the next course of action or if following up outpatient with GI is suitable. CM to continue to follow if needed.
--- NOTE | 2020-07-28 16:06 | PATH ---
[address] [address] PATHOLOGY RPT PROCEDURE Name: AMY DEY Room: [address] IN .R.#: [id number] Admission: 07/22/20 Date of : 52 Discharge: 07/25/20 Report #: [id number] Path Case #: [id number] [facility] Accession Number: [id number] . 01 Material submitted: . PART A: colon - PROXIMAL TRANSVERSE POLYP. Modifiers: proximal, transverse PART B: colon - DESCENDING COLON POLYP. Modifiers: descending . 01 Clinician provided ICD-10: K72.00 R65.11 . 01 Clinical history: . CHEST PAIN, HEPATIC ENCEPHALOPATHY . 02 Diagnosis: A. Proximal transverse polyp: - Tubular adenoma, negative for high-grade dysplasia. . B. Descending colon polyp: - Most consistent with tubular adenoma, negative for high-grade dysplasia. See comment. . (MIESHA:carolin; 07/27/2020) [facility] 07/27/2020 1714 Local . 02 Comment: B. Specimen B is limited by cauterization artifact. (MIESHA:commercial credit portfolio manager; 07/27/2020) . 02 Electronically signed: . Edgar Aldana MD, Pathologist NPI- [id number] . 01 Gross description: . A. Received in formalin labeled "Amy Dey, proximal transverse polyp" is a fragment of gilmore-brown soft tissue measuring 0.3 x 0.2 x 0.1 cm. The specimen is submitted entirely in A1. . B. Received in formalin labeled "Amy Dey, descending colon polyp" is a fragment of gilmore-brown soft tissue measuring 0.3 x 0.3 x 0.2 cm. The specimen is submitted entirely in B1. ([facility]; 07/26/2020) [facility] 07/26/2020 1139 Local . 02 Pathologist provided ICD-10: D12.3, D12.4 . 02 [facility] [place] [address] PATHOLOGY RPT PROCEDURE Name: AMY DEY Room: [address] IN [facility]#: [id number] Admission: 07/22/20 Date of : 52 Discharge: 07/25/20 Report #: [id number] Path Case #: [id number], [id number] Specimen Comment: A courtesy copy of this report has been sent to [phone] Specimen Comment: [phone], Specimen Comment: Report sent to ,DR FERNANDEZ / DR ONTIVEROS Performed at: [address], [place] [address] MD Delroy Trammell MD Phone: [phone] Performed at: 02 [facility] [address], [place], [place] [id number] MD Edgar Aldana MD Phone: [phone]
== END 2020-07-25 16:15 | disposition home health service (06) | DRG 441 ==
LOC: M.ERS 09:14 → M.TBA-ER 11:47 → M.2W 11:47
PROVIDERS: Emergency Medicine Emergency Medical Services; Internal Medicine Hematology & Oncology; ADMIT Internal Medicine; ATTEND Internal Medicine
PROC: 0DBM8ZZ Excision of Descending Colon, Via Natural or Artificial Opening Endoscopic (ICD-10-PCS; principal; 2020-07-24)
PROC: 0DBL8ZZ Excision of Transverse Colon, Via Natural or Artificial Opening Endoscopic (ICD-10-PCS; principal; 2020-07-24)
PROC: 0DJ08ZZ Inspection of Upper Intestinal Tract, Via Natural or Artificial Opening Endoscopic (ICD-10-PCS; principal; 2020-07-24)
DX: K72.00 Acute and subacute hepatic failure without coma (principal); K57.31 Diverticulosis of large intestine without perforation or abscess with bleeding; R65.11 Systemic inflammatory response syndrome (SIRS) of non-infectious origin with acute organ dysfunction; D61.818 Other pancytopenia; Z68.44 Body mass index [BMI] 60.0-69.9, adult; K76.6 Portal hypertension; N39.0 Urinary tract infection, site not specified; I85.10 Secondary esophageal varices without bleeding; E66.01 Morbid (severe) obesity due to excess calories; K31.89 Other diseases of stomach and duodenum; K58.9 Irritable bowel syndrome, unspecified; M19.90 Unspecified osteoarthritis, unspecified site; K75.81 Nonalcoholic steatohepatitis (NASH); G89.29 Other chronic pain; K21.9 Gastro-esophageal reflux disease without esophagitis; E78.5 Hyperlipidemia, unspecified; M06.9 Rheumatoid arthritis, unspecified; D73.1 Hypersplenism; G43.909 Migraine, unspecified, not intractable, without status migrainosus; G47.33 Obstructive sleep apnea (adult) (pediatric); M79.7 Fibromyalgia; E05.00 Thyrotoxicosis with diffuse goiter without thyrotoxic crisis or storm; E11.9 Type 2 diabetes mellitus without complications; L40.50 Arthropathic psoriasis, unspecified; K31.819 Angiodysplasia of stomach and duodenum without bleeding; D50.0 Iron deficiency anemia secondary to blood loss (chronic); D12.4 Benign neoplasm of descending colon; D12.3 Benign neoplasm of transverse colon; K74.60 Unspecified cirrhosis of liver; D50.9 Iron deficiency anemia, unspecified; K64.4 Residual hemorrhoidal skin tags; Z20.828 Contact with and (suspected) exposure to other viral communicable diseases; Z90.710 Acquired absence of both cervix and uterus; Z85.3 Personal history of malignant neoplasm of breast; Z79.899 Other long term (current) drug therapy; Z88.5 Allergy status to narcotic agent; Z88.2 Allergy status to sulfonamides; Z88.8 Allergy status to other drugs, medicaments and biological substances; Z88.1 Allergy status to other antibiotic agents; Z91.040 Latex allergy status; Z90.49 Acquired absence of other specified parts of digestive tract

== ENCOUNTER → 2020-09-08 | Outpatient (CLI) | payer OTHER ==
[~2020-09-08] MED LIST changes: +XIFAXAN550 M1 PO
[2020-09-08 16:11] LABS: ABSOLUTE EOSINOPHILS 0.1 thou/uL (0.0-0.7); ABSOLUTE LYMPHOCYTES 0.7 thou/uL (0.8-5.3); ABSOLUTE MONOCYTES 0.4 thou/uL (0.0-1.2); ABSOLUTE NEUTROPHILS 1.9 thou/uL (1.6-8.1); BASOPHILS 0.4 %; HEMATOCRIT 25.3 % (37.0-47.0); HEMOGLOBIN 7.9 gm/dL (12.0-15.0); LYMPHOCYTES 22.6 %; MCH 24.8 pg (26.0-34.0); MCHC 31.3 g/dL (28.0-37.0); MCV 79.1 fL (80.0-100.0); MONOCYTES 11.6 %; MPV 7.8 fl. (7.2-11.1); NUCLEATED RBCS 0 /100WBC; PLATELET COUNT* 87 thou/uL (150-400); POLYS 61.4 %; RDW-CV 20.6 % (10.5-14.5); WBC 3.1 thou/uL (4.0-11.0)
[2020-09-08 16:35] LABS: ALBUMIN 2.2 g/dL (3.4-5.0); CALCIUM 8.2 mg/dL (8.5-10.1); DIRECT BILIRUBIN 0.6 mg/dL (<0.1-0.3); POTASSIUM 4.1 mmol/L (3.5-5.1); TOTAL BILIRUBIN 2.4 mg/dL (<0.1-1.0); TOTAL PROTEIN 6.5 g/dL (6.4-8.2)
[2020-09-09 07:09] LABS: GLYCOHEMOGLOBIN (HGB A1C) 4.8 % (4.8-5.6)
== END ==
LOC: M.RAD 15:00
PROVIDERS: ATTEND Registered Nurse Diabetes Educator
DX: K74.60 Unspecified cirrhosis of liver (principal); K72.90 Hepatic failure, unspecified without coma; I50.9 Heart failure, unspecified; E11.9 Type 2 diabetes mellitus without complications; I10 Essential (primary) hypertension; E03.9 Hypothyroidism, unspecified; M47.812 Spondylosis without myelopathy or radiculopathy, cervical region; M47.814 Spondylosis without myelopathy or radiculopathy, thoracic region; J98.4 Other disorders of lung; N64.89 Other specified disorders of breast; K76.0 Fatty (change of) liver, not elsewhere classified; R16.1 Splenomegaly, not elsewhere classified; K44.9 Diaphragmatic hernia without obstruction or gangrene; K76.89 Other specified diseases of liver; M47.816 Spondylosis without myelopathy or radiculopathy, lumbar region; Z79.899 Other long term (current) drug therapy

== ENCOUNTER 2020-09-15 08:39 | Inpatient (IN) | payer OTHER ==
[~2020-09-15] VITALS: Ht 165.1 cm; Wt 169.1 kg
--- NOTE | ~2020-09-15 | CON ---
[address] [address] CONSULTATION Name: ANA DEY Ela Room: [address] IN M.R.#: [id number] Admission: 09/16/20 Attend Phys: Phil Quintanilla Discharge: Date of : 52 Report #: [id number] THIS REPORT FOR: cc: Ondina Spencer Tammy RNP ~ Harshal Dumont MD DATE OF SERVICE: 09/17/2020 REQUESTING PHYSICIAN: Michael Andrew DO REASON FOR CONSULTATION: Assistance with diuresis. HISTORY OF PRESENT ILLNESS: The patient is a 69-year-old female with medical history significant for liver cirrhosis, morbid obesity, hypertension, presents with complaints of abdominal pain, was found to be in anasarca, also having ascites. Dr. Andrew started her on Lasix 40 mg IV twice a day and Aldactone 100 mg twice a day and I was consulted also to help with the diuresis. Her labs reveal normal BUN and creatinine. Potassium was 3.5. She has a history of hepatic encephalopathy, but never required paracentesis in the past. SOCIAL HISTORY: No tobacco or alcohol abuse. FAMILY HISTORY: Noncontributory. REVIEW OF SYSTEMS: Positive for abdominal pain, decreased mobility, edema. PHYSICAL EXAMINATION: GENERAL: She is awake, alert, and oriented. VITAL SIGNS: Blood pressure is 114/42, heart rate is 84, afebrile. HEENT: Pupils are round. NECK: Fatty. LUNGS: Decreased air movement. CARDIOVASCULAR: Distant heart tones. ABDOMEN: Very obese, soft. Ascites present. LOWER EXTREMITIES: With edema. LABORATORY DATA: Normal BUN and creatinine. Hemoglobin is 6.8. Albumin was low at 2.2. INR is 1.4, PTT is 30.7. ASSESSMENT: 1. Fluid overload due to liver cirrhosis. 2. Liver cirrhosis. 3. [place] [address] CONSULTATION Name: ANA DEY Ela Room: [address]#: [id number] Admission: 09/16/20 Attend Phys: Phil Quintanilla Discharge: Date of : 51 Report #: [id number] 4. Morbid obesity. PLAN: Continue with Lasix 40 mg twice a day and Aldactone 100 mg twice a day. Monitor renal function, monitor in and out, daily weight. Agree with albumin. If she does not respond to this regimen, we may start a Lasix drip. Discussed with Dr. Edge. By: 1046 1057Adallas Dumont MD /nt
--- NOTE | ~2020-09-15 | CON ---
[address] [address] CONSULTATION Name: ANA DEY Ela Room: [address] IN M.R.#: [id number] Admission: 09/16/20 Attend Phys: Phil Quintanilla Discharge: Date of : 52 Report #: [id number] THIS REPORT FOR: cc: Ondina Spencer Tammy RNP ~ Mauricio Akbar MD DATE OF SERVICE: 09/18/2020 REASON FOR CONSULTATION: Iron deficiency anemia. REQUESTING PHYSICIAN: Carlos Ramires DO HISTORY OF PRESENT ILLNESS: The patient is a 69-year-old woman with history of liver cirrhosis, esophageal varices, history of previous bleeding, iron deficiency anemia, who is well known to our service from previous admissions. She was given IV iron last fall while in the hospital. She is admitted to the hospital with ascites and generalized anasarca with abdominal discomfort. She has anemia. Hematology consult is requested for possible IV iron infusion and evaluation. She is doing okay. Her is at bedside. She does not have chest pain. Denies shortness of breath. Denies melena or hematochezia. She is not able to tolerate oral iron. PAST MEDICAL HISTORY: Significant for liver cirrhosis, obesity, hypertension, history of iron deficiency anemia and esophageal varices. SOCIAL HISTORY: She is . She does not have a history of alcohol abuse. Does not smoke. FAMILY HISTORY: Noncontributory. REVIEW OF SYSTEMS: CONSTITUTIONAL: No fever or chills. RESPIRATORY: No shortness of breath, cough. PHYSICAL EXAMINATION: VITAL SIGNS: Blood pressure 168/53, heart rate is 80, temperature 98.1, respirations 16. NECK: Supple. No thrush. There is no supraclavicular lymphadenopathy. HEART: Normal S1, S2. LUNGS: Decreased breath sounds anteriorly. ABDOMEN: Obese. MENTAL STATUS: Alert and oriented x 3. LABORATORY DATA: White count 2.3, hemoglobin 7.0, MCV 78.9, platelets 139.. [place] [address] CONSULTATION Name: ANA DEY Room: [address] IN [facility]#: [id number] Admission: 09/16/20 Attend Phys: Phil Quintanilla Discharge: Date of : 52 Report #: [id number] ASSESSMENT AND PLAN: Anemia, microcytic, iron deficiency. Ferritin 39 is low in this setting. I agree she will benefit from intravenous iron infusion. Plan to give her Venofer 200 mg IV for 4 days. Leukopenia and thrombocytopenia secondary to liver cirrhosis. Thank you very much for allowing me to participate in care of this patient. By: 1021 1054Mauricio Akbar MD /nt
[2020-09-15 08:52] VITALS: BP 113/35
[2020-09-15 09:25] LABS: URINE BLOOD NEGATIVE (Negative); URINE CLARITY CLEAR; URINE COLOR DARK YELLOW; URINE GLUCOSE-RANDOM NEGATIVE (Negative); URINE KETONES NEGATIVE (Negative); URINE LEUKOCYTES-REFLEX NEGATIVE (Negative); URINE PROTEIN 1+ (Negative); URINE SPECIFIC GRAVITY >= 1.030 (1.005-1.030)
[2020-09-15 09:26] LABS: ICTOTEST (BILI CONFIRMATORY) Negative (Negative); URINE BILIRUBIN 1+ (Negative); URINE NITRITE-REFLEX POSITIVE (Negative)
[2020-09-15 09:34] LABS: SQUAMOUS 4-10 Moderate /LPF (0-3); URINE RBC 0-2 Rare /HPF (0-2); URINE WBC-REFLEX 6-15 Few /HPF (0-5)
[2020-09-15 09:35] LABS: BACTERIA-REFLEX >30 Many /HPF (None Seen); MUCUS >6 Heavy strn/LPF (None Seen)
[2020-09-15 09:36] LABS: FINE GRANULAR CASTS 0-3 Few /LPF (None Seen)
[2020-09-15 09:40] LABS: CRYSTALS None Seen /LPF (None Seen)
[2020-09-15 10:26] LABS: ABSOLUTE EOSINOPHILS 0.2 thou/uL (0.0-0.7); ABSOLUTE LYMPHOCYTES 0.6 thou/uL (0.8-5.3); ABSOLUTE MONOCYTES 0.5 thou/uL (0.0-1.2); ABSOLUTE NEUTROPHILS 2.3 thou/uL (1.6-8.1); BASOPHILS 0.4 %; EOSINOPHILS 4.3 %; HEMATOCRIT 25.4 % (37.0-47.0); HEMOGLOBIN 7.9 gm/dL (12.0-15.0); LYMPHOCYTES 16.5 %; MCH 24.7 pg (26.0-34.0); MCHC 31.2 g/dL (28.0-37.0); MCV 79.2 fL (80.0-100.0); MONOCYTES 13.5 %; MPV 7.9 fl. (7.2-11.1); NUCLEATED RBCS 0 /100WBC; PLATELET COUNT* 85 thou/uL (150-400); POLYS 65.3 %; RBC 3.21 mil/uL (4.20-5.00); RDW-CV 21.2 % (10.5-14.5); WBC 3.5 thou/uL (4.0-11.0)
[2020-09-15 10:41] LABS: CALCIUM 7.8 mg/dL (8.5-10.1)
[2020-09-15 10:46] LABS: ALBUMIN 1.9 g/dL (3.4-5.0); TOTAL BILIRUBIN 1.9 mg/dL (<0.1-1.0); TOTAL PROTEIN 5.8 g/dL (6.4-8.2)
[2020-09-15 16:51] VITALS: BP 115/50
[2020-09-15 17:30] VITALS: BP 101/34
[2020-09-15 17:36] LABS: CALCIUM 8.1 mg/dL (8.5-10.1); CREATININE 0.9 mg/dL (0.6-1.3); POTASSIUM 4.3 mmol/L (3.5-5.1)
[2020-09-15 17:40] LABS: MAGNESIUM 2.1 mg/dL (1.8-2.4); PHOSPHORUS* 3.3 mg/dL (2.5-4.9)
--- NOTE | 2020-09-15 18:17 | EKG ---
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: CCD : 1950 Requested By: Stevo Ramirez Order Number: [id number] MD: Toni Dubois Measurements Intervals [place] Rate: 70 P: 71 OK: 150 QRS: -5 QRSD: 102 T: 35 QT: 470 QTc: 508 Interpretive Statements Sinus rhythm Low voltage, precordial leads Abnormal R-wave progression, late transition Prolonged QT interval Compared to ECG 07/22/2020 10:25:17 Low QRS voltage now present Poor R-wave progression no longer present Electronically Signed On 09-15-2020 18:17:07 ACADEMIC AFFAIRS SPECIALIST by Toni Dubois [email or web address] <ELECTRONICALLY SIGNED> By: Toni Dubois MD, [facility] 09/15/20 1817 2 Toni Dubois MD, [facility] /EPI
[2020-09-15 20:00] VITALS: BP 108/39
[2020-09-16] VITALS: BP 129/56
[2020-09-16 04:00] VITALS: BP 112/40
[2020-09-16 06:13] LABS: CALCIUM 8.1 mg/dL (8.5-10.1); CREATININE 0.9 mg/dL (0.6-1.3); POTASSIUM 3.9 mmol/L (3.5-5.1)
[2020-09-16 06:16] LABS: MAGNESIUM 2.2 mg/dL (1.8-2.4); PHOSPHORUS* 3.3 mg/dL (2.5-4.9)
[2020-09-16 08:02] VITALS: BP 116/42
[2020-09-16 11:07] LABS: APTT 30.7 Seconds (25.0-31.3); INR 1.4; PROTIME 14.4 Seconds (9.20-11.50)
[2020-09-16 12:00] VITALS: BP 128/44
[2020-09-16 16:00] VITALS: BP 126/40
[2020-09-16 20:00] VITALS: BP 90/46
[2020-09-17] VITALS: BP 126/48
[2020-09-17 04:00] VITALS: BP 146/51
[2020-09-17 04:25] LABS: HEMATOCRIT 21.2 % (37.0-47.0); MCH 24.9 pg (26.0-34.0); MCHC 32.2 g/dL (28.0-37.0); MCV 77.4 fL (80.0-100.0); MPV 7.9 fl. (7.2-11.1); RBC 2.74 mil/uL (4.20-5.00); RDW-CV 20.7 % (10.5-14.5); WBC 2.7 thou/uL (4.0-11.0)
[2020-09-17 04:40] LABS: ALBUMIN 2.2 g/dL (3.4-5.0); CALCIUM 8.1 mg/dL (8.5-10.1); CREATININE 0.9 mg/dL (0.6-1.3); POTASSIUM 3.5 mmol/L (3.5-5.1); TOTAL BILIRUBIN 1.9 mg/dL (<0.1-1.0); TOTAL PROTEIN 5.8 g/dL (6.4-8.2)
[2020-09-17 05:07] LABS: HEMOGLOBIN 6.8 gm/dL (12.0-15.0)
[2020-09-17 07:51] VITALS: BP 114/42
[2020-09-17 10:42] VITALS: BP 100/32; BP 111/30; BP 111/36
[2020-09-17 14:23] LABS: HEMATOCRIT 22.1 % (37.0-47.0); HEMOGLOBIN 7.2 gm/dL (12.0-15.0)
[2020-09-17 17:10] VITALS: BP 143/59
[2020-09-17 21:00] VITALS: BP 135/52
[2020-09-18] VITALS: BP 126/59
[2020-09-18 04:00] VITALS: BP 128/47
[2020-09-18 04:51] LABS: HEMATOCRIT 21.3 % (37.0-47.0); MCH 25.9 pg (26.0-34.0); MCHC 32.9 g/dL (28.0-37.0); MCV 78.9 fL (80.0-100.0); MPV 8.6 fl. (7.2-11.1); RBC 2.69 mil/uL (4.20-5.00); RDW-CV 20.7 % (10.5-14.5); WBC 2.3 thou/uL (4.0-11.0)
[2020-09-18 05:47] LABS: ALBUMIN 2.8 g/dL (3.4-5.0); CALCIUM 8.6 mg/dL (8.5-10.1); CREATININE 0.9 mg/dL (0.6-1.3); MAGNESIUM 2.1 mg/dL (1.8-2.4); POTASSIUM 3.9 mmol/L (3.5-5.1); TOTAL BILIRUBIN 2.4 mg/dL (<0.1-1.0); TOTAL PROTEIN 5.7 g/dL (6.4-8.2)
[2020-09-18 08:15] VITALS: BP 135/52
[2020-09-18 15:52] VITALS: BP 112/43
[2020-09-18 21:27] VITALS: BP 112/33
[2020-09-19 04:33] LABS: HEMATOCRIT 21.8 % (37.0-47.0); MCH 25.3 pg (26.0-34.0); MCHC 31.8 g/dL (28.0-37.0); MCV 79.3 fL (80.0-100.0); MPV 8.2 fl. (7.2-11.1); RBC 2.75 mil/uL (4.20-5.00); RDW-CV 21.4 % (10.5-14.5); WBC 2.4 thou/uL (4.0-11.0)
[2020-09-19 04:55] LABS: ALBUMIN 2.7 g/dL (3.4-5.0); CALCIUM 8.5 mg/dL (8.5-10.1); CREATININE 0.9 mg/dL (0.6-1.3); MAGNESIUM 1.8 mg/dL (1.8-2.4); POTASSIUM 3.1 mmol/L (3.5-5.1); TOTAL BILIRUBIN 2.2 mg/dL (<0.1-1.0); TOTAL PROTEIN 5.5 g/dL (6.4-8.2)
[2020-09-19 07:10] VITALS: BP 103/49
[2020-09-19 16:09] VITALS: BP 105/33
[2020-09-19 20:00] VITALS: BP 99/28
[2020-09-19 20:45] VITALS: BP 108/35
[2020-09-20] VITALS (7 sets, daily range): BP systolic 97–135; BP diastolic 31–61
[2020-09-20 06:15] LABS: HEMATOCRIT 24.2 % (37.0-47.0); HEMOGLOBIN 7.6 gm/dL (12.0-15.0); MCH 25.4 pg (26.0-34.0); MCHC 31.6 g/dL (28.0-37.0); MCV 80.5 fL (80.0-100.0); MPV 8.4 fl. (7.2-11.1); RBC 3.01 mil/uL (4.20-5.00); RDW-CV 21.3 % (10.5-14.5); WBC 3.4 thou/uL (4.0-11.0)
[2020-09-20 06:32] LABS: ALBUMIN 2.9 g/dL (3.4-5.0); CALCIUM 8.7 mg/dL (8.5-10.1); MAGNESIUM 1.9 mg/dL (1.8-2.4); POTASSIUM 4.2 mmol/L (3.5-5.1); TOTAL BILIRUBIN 2.3 mg/dL (<0.1-1.0); TOTAL PROTEIN 6.8 g/dL (6.4-8.2)
[2020-09-21] VITALS (7 sets, daily range): BP systolic 112–130; BP diastolic 33–43
[2020-09-21 05:20] LABS: HEMATOCRIT 22.8 % (37.0-47.0); HEMOGLOBIN 7.2 gm/dL (12.0-15.0); MCH 25.5 pg (26.0-34.0); MCHC 31.5 g/dL (28.0-37.0); MCV 81.1 fL (80.0-100.0); MPV 8.4 fl. (7.2-11.1); RBC 2.81 mil/uL (4.20-5.00); RDW-CV 21.7 % (10.5-14.5); WBC 3.3 thou/uL (4.0-11.0)
[2020-09-21 05:25] LABS: ALBUMIN 2.8 g/dL (3.4-5.0); CALCIUM 8.7 mg/dL (8.5-10.1); CREATININE 1.1 mg/dL (0.6-1.3); MAGNESIUM 1.9 mg/dL (1.8-2.4); POTASSIUM 3.8 mmol/L (3.5-5.1); TOTAL BILIRUBIN 1.9 mg/dL (<0.1-1.0); TOTAL PROTEIN 6.3 g/dL (6.4-8.2)
[2020-09-21] MEDS ORDERED: LASIX 40 MG TAB40 M1 PO (08:19)
[2020-09-21] MEDS ORDERED: KEFLEX500 M1 PO (08:19)
[2020-09-21] MEDS ORDERED: ALDACTONE100 MG PO (08:19)
--- NOTE | 2020-09-21 13:22 | EKG ---
[place] [address] ELECTROCARDIOGRAM REPORT Name: ANA DEY Room: [address] ADM IN M.R.#: [id number] Admission: 09/16/20 Attend Phys: Carlos Ramires Discharge: Date of : 52 Date of Service: 09/20/20 0457 Report #: [id number] THIS REPORT FOR: //name// [facility] Test Date: 2020-09-20 Test Time: 04:57:05 Pat Name: ANA DEY Department: Room: [address] Gender: F Carpenter Streetcar: SUDHAKAR : 1950 Requested By: Carlos Ramires Order Number: [id number] Mandie MD: Ron Montoya Measurements Intervals Valentine Rate: 71 P: 54 SD: 159 QRS: -9 QRSD: 101 T: 4 QT: 448 QTc: 487 Interpretive Statements Sinus rhythm Low voltage, precordial leads Consider anterior infarct Compared to ECG 09/15/2020 09:43:32 Prolonged QT interval no longer present Electronically Signed On 09-21-2020 13:22:41 SHIP ERECTOR by Ron Montoya [email or web address] <ELECTRONICALLY SIGNED> By: Ron Montoya MD, FAC 09/21/20 1322 0457 0457 Ron Montoya MD, FAC /EPI
[2020-09-22 08:00] VITALS: BP 105/35
[2020-09-22 09:14] VITALS: BP 112/41
[2020-09-22] MEDS ORDERED: ZOFRAN 4 MG ORAL4 MG PO (10:33)
[2020-09-22 11:03] VITALS: BP 112/41
== END 2020-09-22 10:55 | disposition home health service (06) | DRG 441 ==
LOC: M.ERS 08:39 → M.TBA-ER 13:08 → M.2W 17:07 → M.3W 09-18 07:55
PROVIDERS: Emergency Medicine Emergency Medical Services; Internal Medicine; ADMIT Internal Medicine; ATTEND Internal Medicine
PROC: 0W9G3ZZ Drainage of Peritoneal Cavity, Percutaneous Approach (ICD-10-PCS; principal; 2020-09-16)
PROC: 30233N1 Transfusion of Nonautologous Red Blood Cells into Peripheral Vein, Percutaneous Approach (ICD-10-PCS; 2020-09-17)
DX: K72.90 Hepatic failure, unspecified without coma (principal); J15.6 Pneumonia due to other Gram-negative bacteria; R65.11 Systemic inflammatory response syndrome (SIRS) of non-infectious origin with acute organ dysfunction; N39.0 Urinary tract infection, site not specified; R18.8 Other ascites; L03.115 Cellulitis of right lower limb; Z68.44 Body mass index [BMI] 60.0-69.9, adult; E66.01 Morbid (severe) obesity due to excess calories; M19.90 Unspecified osteoarthritis, unspecified site; E78.5 Hyperlipidemia, unspecified; K21.9 Gastro-esophageal reflux disease without esophagitis; E11.9 Type 2 diabetes mellitus without complications; G43.909 Migraine, unspecified, not intractable, without status migrainosus; K74.60 Unspecified cirrhosis of liver; M06.9 Rheumatoid arthritis, unspecified; G89.29 Other chronic pain; M54.9 Dorsalgia, unspecified; I35.0 Nonrheumatic aortic (valve) stenosis; I10 Essential (primary) hypertension; J45.909 Unspecified asthma, uncomplicated; E87.70 Fluid overload, unspecified; D50.9 Iron deficiency anemia, unspecified; B96.89 Other specified bacterial agents as the cause of diseases classified elsewhere; D69.6 Thrombocytopenia, unspecified; Z20.822 Contact with and (suspected) exposure to COVID-19; Z90.710 Acquired absence of both cervix and uterus; Z88.1 Allergy status to other antibiotic agents; Z91.041 Radiographic dye allergy status; Z88.2 Allergy status to sulfonamides; Z88.8 Allergy status to other drugs, medicaments and biological substances; Z88.6 Allergy status to analgesic agent; Z91.19 Patient's noncompliance with other medical treatment and regimen

== ENCOUNTER 2020-10-15 10:37 | Inpatient (IN) | payer OTHER ==
[~2020-10-15] VITALS: Ht 165.1 cm; Wt 160.4 kg
[~2020-10-15 10:37] MED LIST changes: +ALDACTONE100 MG PO; -ATORVASTATIN CA40 MG PO; +KEFLEX500 M1 PO; +LIPITOR40 MG PO; +ZOFRAN 4 MG ORAL4 MG PO
[2020-10-15 10:44] VITALS: BP 126/82
[2020-10-15 11:23] LABS: ABSOLUTE EOSINOPHILS 0.1 thou/uL (0.0-0.7); ABSOLUTE LYMPHOCYTES 0.6 thou/uL (0.8-5.3); ABSOLUTE MONOCYTES 0.4 thou/uL (0.0-1.2); ABSOLUTE NEUTROPHILS 2.8 thou/uL (1.6-8.1); BASOPHILS 1.1 %; EOSINOPHILS 2.8 %; HEMATOCRIT 27.1 % (37.0-47.0); HEMOGLOBIN 8.8 gm/dL (12.0-15.0); LYMPHOCYTES 14.6 %; MCH 28.3 pg (26.0-34.0); MCHC 32.3 g/dL (28.0-37.0); MCV 87.8 fL (80.0-100.0); MONOCYTES 9.8 %; MPV 7.4 fl. (7.2-11.1); NUCLEATED RBCS 0 /100WBC; PLATELET COUNT* 71 thou/uL (150-400); POLYS 71.7 %; RBC 3.09 mil/uL (4.20-5.00); RDW-CV 25.3 % (10.5-14.5); WBC 3.9 thou/uL (4.0-11.0)
[2020-10-15 11:32] LABS: CALCIUM 8.3 mg/dL (8.5-10.1); CREATININE 0.9 mg/dL (0.6-1.3); POTASSIUM 4.2 mmol/L (3.5-5.1)
[2020-10-15 11:36] LABS: ALBUMIN 2.6 g/dL (3.4-5.0); TOTAL BILIRUBIN 3.6 mg/dL (<0.1-1.0)
[2020-10-15 11:45] LABS: HYPOCHROMASIA Occasional
[2020-10-15 11:46] LABS: ANISOCYTOSIS 1+
[2020-10-15 11:47] LABS: OVALOCYTES Occasional; PLATELET ESTIMATE DECREASED
[2020-10-15 12:18] LABS: URINE BLOOD TRACE (Negative); URINE CLARITY CLEAR; URINE COLOR YELLOW; URINE GLUCOSE-RANDOM NEGATIVE (Negative); URINE KETONES NEGATIVE (Negative); URINE LEUKOCYTES-REFLEX 1+ (Negative); URINE NITRITE-REFLEX NEGATIVE (Negative); URINE PROTEIN TRACE (Negative)
[2020-10-15 12:22] LABS: ICTOTEST (BILI CONFIRMATORY) Negative (Negative); URINE BILIRUBIN 1+ (Negative)
[2020-10-15 12:30] LABS: BACTERIA-REFLEX 1-9 Few /HPF (None Seen); CASTS None Seen /LPF (None Seen); CRYSTALS None Seen /LPF (None Seen); MUCUS None Seen strn/LPF (None Seen); SQUAMOUS 4-10 Moderate /LPF (0-3); URINE RBC 0-2 Rare /HPF (0-2); URINE WBC-REFLEX 0-5 Rare /HPF (0-5)
[2020-10-15 14:02] VITALS: BP 100/59
--- NOTE | 2020-10-15 16:31 | EKG ---
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: JAIR : 1950 Requested By: Stevo Ramirez Order Number: [id number] MD: Toni Dubois Measurements Intervals [place] Rate: 70 P: 61 DC: 155 QRS: -18 QRSD: 97 T: 13 QT: 440 QTc: 475 Interpretive Statements Sinus rhythm Borderline left axis deviation Low voltage, precordial leads Baseline wander in lead(s) V2,V5,V6 Compared to ECG 09/20/2020 04:57:05 Myocardial infarct finding no longer present Electronically Signed On 10-15-2020 16:30:52 TURNER MACHINE by Toni Dubois [email or web address] <ELECTRONICALLY SIGNED> By: Toni Dubois MD, FACC 10/15/20 1630 1058 1058 Toni Dubois MD, [facility] /EPI
[2020-10-15 20:00] VITALS: BP 114/38
[2020-10-16] VITALS (7 sets, daily range): BP systolic 97–123; BP diastolic 31–88
[2020-10-16 04:28] LABS: HEMATOCRIT 25.8 % (37.0-47.0); HEMOGLOBIN 8.4 gm/dL (12.0-15.0); MCH 28.7 pg (26.0-34.0); MCHC 32.5 g/dL (28.0-37.0); MCV 88.1 fL (80.0-100.0); MPV 7.5 fl. (7.2-11.1); RBC 2.93 mil/uL (4.20-5.00); RDW-CV 25.5 % (10.5-14.5); WBC 3.9 thou/uL (4.0-11.0)
[2020-10-16 05:00] LABS: % SATURATION 27 % (20-39); IRON 53 ug/dL (50-175)
[2020-10-16 05:39] LABS: ALBUMIN 2.5 g/dL (3.4-5.0); CALCIUM 8.6 mg/dL (8.5-10.1); CREATININE 0.9 mg/dL (0.6-1.3); POTASSIUM 3.9 mmol/L (3.5-5.1); TOTAL BILIRUBIN 4.1 mg/dL (<0.1-1.0); TOTAL PROTEIN 6.7 g/dL (6.4-8.2)
[2020-10-16] MEDS ORDERED: AMITRIPTYLINE100 MG PO (15:11)
[2020-10-16] MEDS ORDERED: FLEXERIL PO (15:11)
[2020-10-16] MEDS ORDERED: METOLAZONE 2.52.5 MG PO (15:12)
[2020-10-16] MEDS ORDERED: TEMAZEPAM30 MG PO (15:13)
[2020-10-16] MEDS ORDERED: OXYBUTYNIN 5 MG5 M2 PO (15:14)
[2020-10-17 03:39] VITALS: BP 126/51
[2020-10-17 06:54] LABS: HEMATOCRIT 22.6 % (37.0-47.0); HEMOGLOBIN 7.4 gm/dL (12.0-15.0); MCH 28.6 pg (26.0-34.0); MCHC 32.5 g/dL (28.0-37.0); MPV 6.9 fl. (7.2-11.1); RBC 2.57 mil/uL (4.20-5.00); RDW-CV 25.9 % (10.5-14.5); WBC 2.8 thou/uL (4.0-11.0)
[2020-10-17 07:05] LABS: CALCIUM 9.3 mg/dL (8.5-10.1); CREATININE 1.2 mg/dL (0.6-1.3); DIRECT BILIRUBIN 0.9 mg/dL (<0.1-0.3); PHOSPHORUS* 3.1 mg/dL (2.5-4.9); POTASSIUM 3.5 mmol/L (3.5-5.1)
[2020-10-17 08:10] VITALS: BP 123/41
[2020-10-17 12:13] VITALS: BP 112/39
[2020-10-17 16:04] VITALS: BP 118/43
[2020-10-18] VITALS: BP 139/45
[2020-10-18 04:33] LABS: HEMATOCRIT 21.1 % (37.0-47.0); MCH 28.7 pg (26.0-34.0); MCHC 32.6 g/dL (28.0-37.0); MPV 7.9 fl. (7.2-11.1); RBC 2.4 mil/uL (4.20-5.00); RDW-CV 25.3 % (10.5-14.5); WBC 2.3 thou/uL (4.0-11.0)
[2020-10-18 04:49] LABS: HEMOGLOBIN 6.9 gm/dL (12.0-15.0)
[2020-10-18 04:55] LABS: CALCIUM 8.8 mg/dL (8.5-10.1); CREATININE 1.2 mg/dL (0.6-1.3); POTASSIUM 3.5 mmol/L (3.5-5.1); TOTAL BILIRUBIN 3.1 mg/dL (<0.1-1.0)
[2020-10-18 09:29] VITALS: BP 109/35
[2020-10-18 10:49] VITALS: BP 133/50; BP 136/57
[2020-10-18 12:00] VITALS: BP 113/39
[2020-10-18 13:49] LABS: ABSOLUTE EOSINOPHILS 0.1 thou/uL (0.0-0.7); ABSOLUTE LYMPHOCYTES 0.5 thou/uL (0.8-5.3); ABSOLUTE MONOCYTES 0.3 thou/uL (0.0-1.2); ABSOLUTE NEUTROPHILS 2.1 thou/uL (1.6-8.1); BASOPHILS 0.7 %; EOSINOPHILS 3.4 %; HEMATOCRIT 23.9 % (37.0-47.0); HEMOGLOBIN 7.7 gm/dL (12.0-15.0); MCH 28.4 pg (26.0-34.0); MCHC 32.2 g/dL (28.0-37.0); MCV 88.1 fL (80.0-100.0); MONOCYTES 8.5 %; NUCLEATED RBCS 0 /100WBC; PLATELET COUNT* 55 thou/uL (150-400); POLYS 69.4 %; RBC 2.72 mil/uL (4.20-5.00); RDW-CV 25.1 % (10.5-14.5)
[2020-10-18 14:00] LABS: INR 1.4; PROTIME 14.8 Seconds (9.20-11.50)
[2020-10-18 14:16] LABS: OVALOCYTES 1+; PLATELET ESTIMATE DECREASED
[2020-10-18 14:17] LABS: TEARDROPS Occasional
[2020-10-18 14:18] LABS: ANISOCYTOSIS 3+; HYPOCHROMASIA 1+; SCHISTOCYTES Occasional
[2020-10-18 16:00] VITALS: BP 138/48
[2020-10-18 20:00] VITALS: BP 106/54
[2020-10-19 00:16] VITALS: BP 108/52
[2020-10-19 04:33] LABS: HEMATOCRIT 21.6 % (37.0-47.0); HEMOGLOBIN 7.1 gm/dL (12.0-15.0); MCH 28.7 pg (26.0-34.0); MCHC 32.8 g/dL (28.0-37.0); MCV 87.5 fL (80.0-100.0); MPV 7.9 fl. (7.2-11.1); RBC 2.47 mil/uL (4.20-5.00); RDW-CV 24.9 % (10.5-14.5); WBC 3.2 thou/uL (4.0-11.0)
[2020-10-19 04:34] LABS: CALCIUM 8.5 mg/dL (8.5-10.1); CREATININE 1.2 mg/dL (0.6-1.3); POTASSIUM 3.3 mmol/L (3.5-5.1)
[2020-10-19 04:38] VITALS: BP 113/53
[2020-10-19 08:00] VITALS: BP 105/32
[2020-10-19] MEDS ORDERED: ALDACTONE100 MG PO (09:53)
[2020-10-19] MEDS ORDERED: LASIX 40 MG TAB40 M1 PO (09:53)
[2020-10-19 10:36] LABS: HEMATOCRIT 23.1 % (37.0-47.0); HEMOGLOBIN 7.4 gm/dL (12.0-15.0)
[2020-10-19 11:41] VITALS: BP 105/32
[2020-10-19 12:41] VITALS: BP 110/46
== END 2020-10-19 13:03 | disposition home or self-care (01) | DRG 441 ==
LOC: M.ERS 10:37 → M.TBA-ER 13:12 → M.2W 13:12
PROVIDERS: Emergency Medicine Emergency Medical Services; ADMIT Internal Medicine; ATTEND Internal Medicine
PROC: 30233N1 Transfusion of Nonautologous Red Blood Cells into Peripheral Vein, Percutaneous Approach (ICD-10-PCS; principal; 2020-10-18)
DX: K72.00 Acute and subacute hepatic failure without coma (principal); R65.11 Systemic inflammatory response syndrome (SIRS) of non-infectious origin with acute organ dysfunction; G93.41 Metabolic encephalopathy; L03.115 Cellulitis of right lower limb; K76.6 Portal hypertension; D61.818 Other pancytopenia; Z68.43 Body mass index [BMI] 50.0-59.9, adult; K74.60 Unspecified cirrhosis of liver; D64.9 Anemia, unspecified; I86.4 Gastric varices; R16.1 Splenomegaly, not elsewhere classified; D69.6 Thrombocytopenia, unspecified; E80.6 Other disorders of bilirubin metabolism; E66.9 Obesity, unspecified; M19.90 Unspecified osteoarthritis, unspecified site; K21.9 Gastro-esophageal reflux disease without esophagitis; E78.5 Hyperlipidemia, unspecified; G43.909 Migraine, unspecified, not intractable, without status migrainosus; M32.9 Systemic lupus erythematosus, unspecified; K58.9 Irritable bowel syndrome, unspecified; G89.29 Other chronic pain; E11.9 Type 2 diabetes mellitus without complications; M06.9 Rheumatoid arthritis, unspecified; L40.50 Arthropathic psoriasis, unspecified; Z20.822 Contact with and (suspected) exposure to COVID-19; Z90.49 Acquired absence of other specified parts of digestive tract; Z90.710 Acquired absence of both cervix and uterus; Z85.3 Personal history of malignant neoplasm of breast; Z79.899 Other long term (current) drug therapy; Z88.5 Allergy status to narcotic agent; Z88.2 Allergy status to sulfonamides; Z88.8 Allergy status to other drugs, medicaments and biological substances; Z91.040 Latex allergy status; Z91.14 Patient's other noncompliance with medication regimen

== ENCOUNTER → 2020-12-31 | Outpatient (CLI) | payer OTHER ==
[~2020-12-31] MED LIST changes: +METOLAZONE 2.52.5 MG PO; +OXYBUTYNIN 5 MG5 M2 PO; +TEMAZEPAM30 MG PO
== END ==
LOC: M.ULTRA 12-28 13:30
PROVIDERS: ATTEND Registered Nurse Diabetes Educator
DX: I87.8 Other specified disorders of veins (principal); E11.9 Type 2 diabetes mellitus without complications; Z87.2 Personal history of diseases of the skin and subcutaneous tissue

== ENCOUNTER → 2021-03-03 | Outpatient (CLI) | payer OTHER ==
[~2021-03-03] MED LIST changes: +KRISTALOSE20 GM PO
== END ==
LOC: M.RAD 13:00 → M.CT 13:30
PROVIDERS: ATTEND Registered Nurse Diabetes Educator
DX: I85.00 Esophageal varices without bleeding (principal); K74.60 Unspecified cirrhosis of liver; E27.9 Disorder of adrenal gland, unspecified; N28.1 Cyst of kidney, acquired; M47.814 Spondylosis without myelopathy or radiculopathy, thoracic region; R10.9 Unspecified abdominal pain; I50.33 Acute on chronic diastolic (congestive) heart failure; J90 Pleural effusion, not elsewhere classified; R16.1 Splenomegaly, not elsewhere classified; R60.0 Localized edema; I25.10 Atherosclerotic heart disease of native coronary artery without angina pectoris

== ENCOUNTER 2021-03-05 09:01 | Inpatient (IN) | payer OTHER ==
[~2021-03-05] VITALS: Ht 165.1 cm; Wt 126.1 kg
--- NOTE | ~2021-03-05 | EEG ---
[address] [address] EEG STUDY REPORT Name: ANA DEY Room: [address] IN M.R.#: [id number] Admission: 03/05/21 Attend Phys: Phil Quintanilla Discharge: Date of : 52 Report #: [id number] THIS REPORT FOR: cc: Ondina Spencer Tammy RNP Khosla, Parveen K. MD ~ DATE OF SERVICE: 03/11/2021 This patient is being evaluated for altered mental status. EEG was done by placing the electrode by standard 10-20 system of electrode placement. Both referential and sequential montages were used for recording. Background activity in this patient's EEG is about 8 Hz and 30 microvolt. It is symmetrical activity. It is intermixed with a theta range slowing on both sides. Photic stimulation was unremarkable. Throughout the record, no active epileptiform activity was noticed. IMPRESSION: This patient's EEG is intermixed with some theta range slowing on both sides. That is a nonspecific abnormality which can occur with encephalopathy, effect of psychotropic medication, dementia, etc. Clinical correlation is recommended. By: 1401 1433Pbarrera Hui MD /nt
--- NOTE | ~2021-03-05 | PROC ---
[address] [address] PROCEDURE REPORT Name: ANA DEY Room: [address] IN ..#: [id number] Admission: 03/05/21 Attend Phys: Phil Quintanilla Discharge: Date of : 52 Report #: [id number] THIS REPORT FOR: cc: Ondina Spencer Tammy RNP [facility],Medical Records Staff ~ For GI report, please see the Provation report in Perceptive 7 content. By: 1443Medical Records Staff SARITA /JASMINE
--- NOTE | ~2021-03-05 | CON ---
[address] [address] CONSULTATION Name: DEYANA Ela Room: [address] IN M.R.#: [id number] Admission: 03/05/21 Attend Phys: Phil Quintanilla Discharge: Date of : 52 Report #: [id number] THIS REPORT FOR: cc: Ondina Spencer Tammy RNP Khosla, Parveen K. MD ~ DATE OF CONSULTATION: 03/10/2021 HISTORY OF PRESENT ILLNESS: A 70-year-old female patient who was seen by me for altered mental status. I talked to the nurse looking after this patient, she said she was not very responsive earlier, but she has become responsive now. I reviewed the patient's record and it looks like this patient has numerous metabolic problems, which include low sodium, very low magnesium, rising creatinine and it also looks like an ID has been consulted for sepsis. The patient's main complaint when I talked to her is pain all over the body. She has been admitted to the hospital multiple times here. She had morbid obesity, cellulitis, osteoarthritis, chronic pain, hysterectomy, GERD, lupus, diabetes, thyroid problem, rheumatoid arthritis, psoriatic arthritis, Graves' disease, fibromyalgia. According to the record, the patient complained of pain. Record indicates she also had some dizziness when she came in and she is still complaining of some dizziness, but does not tell me if it is better or worse. The patient also has portal hypertension, liver cirrhosis, thrombocytopenia, history of sleep apnea. She has generalized weakness, but is not complaining of any focal weakness. When she came in, her hemoglobin was only 6.7. REVIEW OF SYSTEMS: She also has a history of esophageal reflux disease, urinary tract infection, this was a relevant 14-point review of systems. PAST MEDICAL HISTORY: Pretty extensive. It is positive for numerous medical problems. FAMILY HISTORY: According to her is unremarkable for any early age stroke. SOCIAL HISTORY: Apparently, she does not abuse alcohol. PHYSICAL EXAMINATION: NEUROLOGIC: The patient's examination indicates she is alert. Her speech is there. When I ask her what month it is, she tells me correctly. When I ask her what day it is, she does not tell me correctly, but she is close. She does not know what hospital she is in. Apparently, this mental status has improved. Cranial nerve examination indicates she moves her eyes in all directions. I do not see any facial weakness and cranial nerve, the best I can tell, looks unremarkable. She moves all 4 extremities. She moves it against gravity. She has a generalized weakness. When I tried to do the position sense, she does not do very well. I could not elicit the reflexes in [place] [address] CONSULTATION Name: ANA DEY Room: [address] IN ..#: [id number] Admission: 03/05/21 Attend Phys: Phil Quintanilla Discharge: Date of : 52 Report #: [id number] tell about cerebellar sign it looks okay, but I am not sure. I could not look at the fundus. She is morbidly obese. She does have some respiratory difficulty. Her hearing and vision look okay. VITAL SIGNS: Blood pressure is 142/91, respirations 17, pulse is 81, temperature is 102.9. LABORATORY DATA: She did actually had 2 CT scans during this admission and none of them showed any acute abnormality. IMPRESSION: This patient's altered mental status is most likely because of encephalopathy. She has so many metabolic disturbances including very low magnesium, low sodium, high fever, but she did come with dizziness and one of the records indicates diplopia. She does not have any obvious sign of any brainstem infarct, but that is something I will consider. Main thing is to correct metabolic disturbances, especially the rising creatinine and other electrolyte abnormality. I will talk to you tomorrow. I think it will be a good idea to get an MRI in this patient ____ she is and as long as she has been sick if may not change any treatment, but will exclude the possibility of stroke, but I would like to discuss this patient with you tomorrow before proceeding with any treatment and I will order an EEG today. Thank you very much for this referral. By: 1828 39Jorge Hui MD /nt
[~2021-03-05 09:01] MED LIST changes: -KRISTALOSE20 GM PO
[2021-03-05 09:23] VITALS: BP 106/74
[2021-03-05] MEDS ORDERED: KRISTALOSE20 GM PO (09:38)
[2021-03-05 10:08] LABS: CALCIUM 7.7 mg/dL (8.5-10.1); CREATININE 1.5 mg/dL (0.6-1.3); POTASSIUM 4.3 mmol/L (3.5-5.1)
[2021-03-05 10:18] LABS: ALBUMIN 1.9 g/dL (3.4-5.0); TOTAL BILIRUBIN 1.4 mg/dL (<0.1-1.0); TOTAL PROTEIN 5.5 g/dL (6.4-8.2)
[2021-03-05 10:39] LABS: URINE BILIRUBIN NEGATIVE (Negative); URINE BLOOD NEGATIVE (Negative); URINE CLARITY CLEAR; URINE COLOR YELLOW; URINE GLUCOSE-RANDOM NEGATIVE (Negative); URINE KETONES NEGATIVE (Negative); URINE LEUKOCYTES-REFLEX 1+ (Negative); URINE NITRITE-REFLEX NEGATIVE (Negative); URINE PROTEIN NEGATIVE (Negative); URINE SPECIFIC GRAVITY 1.025 (1.005-1.030)
[2021-03-05 10:41] LABS: ABSOLUTE EOSINOPHILS 0.2 thou/uL (0.0-0.7); ABSOLUTE LYMPHOCYTES 0.6 thou/uL (0.8-5.3); ABSOLUTE MONOCYTES 0.3 thou/uL (0.0-1.2); ABSOLUTE NEUTROPHILS 2.5 thou/uL (1.6-8.1); BASOPHILS 0.3 %; EOSINOPHILS 4.4 %; HEMATOCRIT 21.2 % (37.0-47.0); LYMPHOCYTES 15.5 %; MCH 24.6 pg (26.0-34.0); MCHC 31.7 g/dL (28.0-37.0); MCV 77.7 fL (80.0-100.0); MONOCYTES 8.8 %; MPV 8.2 fl. (7.2-11.1); NUCLEATED RBCS 0 /100WBC; PLATELET COUNT* 79 thou/uL (150-400); RBC 2.72 mil/uL (4.20-5.00); RDW-CV 19.6 % (10.5-14.5); WBC 3.6 thou/uL (4.0-11.0)
[2021-03-05 10:44] LABS: SQUAMOUS 4-10 Moderate /LPF (0-3); URINE WBC-REFLEX 0-5 Rare /HPF (0-5)
[2021-03-05 10:44] LABS: HEMOGLOBIN 6.7 gm/dL (12.0-15.0)
[2021-03-05 10:45] LABS: HYALINE CASTS 4-10 Moderate /LPF (None Seen); MUCUS 0-3 Light strn/LPF (None Seen); URINE RBC None Seen /HPF (0-2)
[2021-03-05 10:46] LABS: CRYSTALS None Seen /LPF (None Seen)
[2021-03-05 15:39] VITALS: BP 105/37
--- NOTE | 2021-03-05 15:40 | EKG ---
[place] [address] ELECTROCARDIOGRAM REPORT Name: ANA DEY Room: [place] [address] ADM IN .R.#: [id number] Admission: 03/05/21 Attend Phys: Carlos Ramires Discharge: Date of : 52 Date of Service: 03/05/21 0925 Report #: [id number] THIS REPORT FOR: //name// [facility] ED Test Date: 2021-03-05 Test Time: 09:25:38 Pat Name: ANA TIBURCIO Department: Room: [facility] Gender: F Branch Service Associate: MARJAN : 1950 Requested By: Reed Chavez Order Number: [id number] MD: Caleb Cedeno Measurements Intervals [place] Rate: 77 P: 44 WA: 157 QRS: -16 QRSD: 98 T: 25 QT: 419 QTc: 475 Interpretive Statements Sinus rhythm Left ventricular hypertrophy Compared to ECG 10/15/2020 10:58:11 Left ventricular hypertrophy now present Electronically Signed On 03-05-2021 15:39:47 CDT by Caleb Cedeno [email or web address] <ELECTRONICALLY SIGNED> By: Caleb Cedeno MD, [facility] 03/05/21 1539 0925 0925 Caleb Cedeno MD, [facility] /EPI
[2021-03-05 16:00] VITALS: BP 93/22
[2021-03-05 19:48] VITALS: BP 105/41
[2021-03-06] VITALS (7 sets, daily range): BP systolic 94–125; BP diastolic 26–69
[2021-03-06 05:48] LABS: HEMATOCRIT 21.9 % (37.0-47.0); HEMOGLOBIN 7.1 gm/dL (12.0-15.0); MCH 24.7 pg (26.0-34.0); MCHC 32.2 g/dL (28.0-37.0); MCV 76.7 fL (80.0-100.0); MPV 8.5 fl. (7.2-11.1); RBC 2.86 mil/uL (4.20-5.00); RDW-CV 19.4 % (10.5-14.5); WBC 3.2 thou/uL (4.0-11.0)
[2021-03-06 05:57] LABS: CALCIUM 7.5 mg/dL (8.5-10.1); CREATININE 1.2 mg/dL (0.6-1.3); POTASSIUM 4.3 mmol/L (3.5-5.1)
[2021-03-06 20:29] LABS: HEMATOCRIT 24.1 % (37.0-47.0); HEMOGLOBIN 7.9 gm/dL (12.0-15.0)
[2021-03-07] VITALS: BP 102/40
[2021-03-07 04:00] VITALS: BP 104/38
[2021-03-07 05:00] LABS: HEMATOCRIT 24.7 % (37.0-47.0); HEMOGLOBIN 8.1 gm/dL (12.0-15.0); MCH 25.3 pg (26.0-34.0); MCHC 32.6 g/dL (28.0-37.0); MCV 77.5 fL (80.0-100.0); MPV 7.8 fl. (7.2-11.1); RBC 3.19 mil/uL (4.20-5.00); RDW-CV 18.8 % (10.5-14.5); WBC 3.2 thou/uL (4.0-11.0)
[2021-03-07 05:08] LABS: CREATININE 1.2 mg/dL (0.6-1.3); POTASSIUM 4.1 mmol/L (3.5-5.1)
[2021-03-07 08:10] VITALS: BP 125/44
[2021-03-07 12:00] VITALS: BP 111/30
[2021-03-07 16:00] VITALS: BP 102/27
[2021-03-07 20:37] VITALS: BP 110/44
[2021-03-08] VITALS: BP 113/38
[2021-03-08 03:45] VITALS: BP 115/41
[2021-03-08 05:34] LABS: HEMATOCRIT 24.2 % (37.0-47.0); MCH 25.7 pg (26.0-34.0); MCV 77.7 fL (80.0-100.0); MPV 7.8 fl. (7.2-11.1); RBC 3.11 mil/uL (4.20-5.00); RDW-CV 19.1 % (10.5-14.5); WBC 4.2 thou/uL (4.0-11.0)
[2021-03-08 05:46] LABS: CALCIUM 8.3 mg/dL (8.5-10.1); CREATININE 1.4 mg/dL (0.6-1.3); POTASSIUM 3.7 mmol/L (3.5-5.1)
[2021-03-08 08:51] VITALS: BP 107/29
[2021-03-08] MEDS ORDERED: KRISTALOSE20 GM PO (10:22)
[2021-03-08 12:00] VITALS: BP 112/34
[2021-03-08 16:00] VITALS: BP 104/43
[2021-03-08 20:00] VITALS: BP 114/44
[2021-03-09 00:15] VITALS: BP 104/29
[2021-03-09 04:00] VITALS: BP 103/45
[2021-03-09 04:24] LABS: HEMATOCRIT 24.3 % (37.0-47.0)
[2021-03-09 08:00] VITALS: BP 92/22
[2021-03-09 12:00] VITALS: BP 112/31
[2021-03-09 16:00] VITALS: BP 129/56
[2021-03-09 20:00] VITALS: BP 120/43
[2021-03-10 04:00] VITALS: BP 110/41
[2021-03-10 07:38] VITALS: BP 104/38
[2021-03-10 12:00] VITALS: BP 128/111
[2021-03-10 12:32] LABS: ALBUMIN 2.1 g/dL (3.4-5.0); CALCIUM 8.2 mg/dL (8.5-10.1); CREATININE 1.8 mg/dL (0.6-1.3); POTASSIUM 4.2 mmol/L (3.5-5.1); TOTAL BILIRUBIN 2.2 mg/dL (<0.1-1.0); TOTAL PROTEIN 5.9 g/dL (6.4-8.2)
[2021-03-10 14:17] LABS: BE 0.2 mmol/L (-2 to +3); PCO2 32.5 mmHg (35.0-45.0); PO2 82.2 mmHg (75.0-100.0); pH 7.476 (7.340-7.450)
[2021-03-10 15:03] LABS: ABSOLUTE EOSINOPHILS 0.1 thou/uL (0.0-0.7); ABSOLUTE LYMPHOCYTES 0.7 thou/uL (0.8-5.3); ABSOLUTE MONOCYTES 0.2 thou/uL (0.0-1.2); ABSOLUTE NEUTROPHILS 2.9 thou/uL (1.6-8.1); BASOPHILS 0.4 %; HEMATOCRIT 25.6 % (37.0-47.0); HEMOGLOBIN 8.3 gm/dL (12.0-15.0); LYMPHOCYTES 17.9 %; MCH 25.9 pg (26.0-34.0); MCHC 32.3 g/dL (28.0-37.0); MCV 80.1 fL (80.0-100.0); MONOCYTES 5.5 %; MPV 8.3 fl. (7.2-11.1); NUCLEATED RBCS 0 /100WBC; PLATELET COUNT* 74 thou/uL (150-400); POLYS 73.2 %; RBC 3.19 mil/uL (4.20-5.00); RDW-CV 20.4 % (10.5-14.5)
[2021-03-10 15:36] LABS: ALBUMIN 1.9 g/dL (3.4-5.0); CALCIUM 7.8 mg/dL (8.5-10.1); CREATININE 2.3 mg/dL (0.6-1.3); POTASSIUM 3.8 mmol/L (3.5-5.1); TOTAL BILIRUBIN 2.3 mg/dL (<0.1-1.0); TOTAL PROTEIN 5.1 g/dL (6.4-8.2)
[2021-03-10 15:44] LABS: ANISOCYTOSIS 3+; PLATELET ESTIMATE ADEQUATE
[2021-03-10 16:00] VITALS: BP 142/91
--- NOTE | 2021-03-10 16:21 | EKG ---
[place] [address] ELECTROCARDIOGRAM REPORT Name: ANA DEY Room: [address] ADM IN M.R.#: [id number] Admission: 03/05/21 Attend Phys: Carlos Ramires Discharge: Date of : 52 Date of Service: 03/10/21 1603 Report #: [id number] THIS REPORT FOR: //name// [facility] Test Date: 2021-03-10 Test Time: 16:03:03 Pat Name: ANA TIBURCIO Department: Room: [address] Gender: F Rn Bsn: SURESH : 1950 Requested By: Carlos Ramires Order Number: [id number] Mandie MD: Ron Montoya Measurements Intervals [place] Rate: 73 P: [place]: QRS: -20 QRSD: 85 T: 16 QT: 427 QTc: 471 Interpretive Statements Atrial fibrillation LVH by voltage Compared to ECG 03/05/2021 09:25:38 Sinus rhythm no longer present Electronically Signed On 03-10-2021 16:20:55 CDT by Ron Montoya [email or web address] <ELECTRONICALLY SIGNED> By: Ron Montoya MD, [facility] 03/10/21 1620 1603 1603 Ron Montoya MD, [facility] /EPI
[2021-03-10 18:47] LABS: PHOSPHORUS* 1.2 mg/dL (2.5-4.9)
[2021-03-10 18:57] LABS: MAGNESIUM 0.7 mg/dL (1.8-2.4)
[2021-03-10 20:09] LABS: URINE BLOOD 3+ (Negative); URINE CLARITY SL CLOUDY; URINE COLOR DARK YELLOW; URINE GLUCOSE-RANDOM NEGATIVE (Negative); URINE KETONES 1+ (Negative); URINE LEUKOCYTES-REFLEX TRACE (Negative); URINE PROTEIN 1+ (Negative); URINE SPECIFIC GRAVITY 1.025 (1.005-1.030)
[2021-03-10 20:14] VITALS: BP 85/25
[2021-03-10 20:22] LABS: URINE BILIRUBIN 2+ (Negative); URINE NITRITE-REFLEX POSITIVE (Negative)
[2021-03-10 20:27] LABS: ICTOTEST (BILI CONFIRMATORY) Negative (Negative)
[2021-03-10 20:29] LABS: SQUAMOUS >10 Many /LPF (0-3)
[2021-03-10 20:30] LABS: BACTERIA-REFLEX 1-9 Few /HPF (None Seen); CRYSTALS None Seen /LPF (None Seen); HYALINE CASTS 4-10 Moderate /LPF (None Seen); MUCUS 0-3 Light strn/LPF (None Seen); URINE WBC-REFLEX 6-15 Few /HPF (0-5)
[2021-03-11] VITALS (8 sets, daily range): BP systolic 79–146; BP diastolic 22–122
[2021-03-11 12:59] LABS: MCH 26.3 pg (26.0-34.0); MCHC 32.2 g/dL (28.0-37.0); MCV 81.6 fL (80.0-100.0); MPV 8.4 fl. (7.2-11.1); NUCLEATED RBCS 0 /100WBC; RBC 2.43 mil/uL (4.20-5.00); RDW-CV 20.7 % (10.5-14.5); WBC 2.1 thou/uL (4.0-11.0)
[2021-03-11 13:06] LABS: HEMOGLOBIN 6.4 gm/dL (12.0-15.0)
[2021-03-11 13:07] LABS: HEMATOCRIT 19.9 % (37.0-47.0); PLATELET COUNT* 33 thou/uL (150-400)
[2021-03-11 13:20] LABS: ALBUMIN 2.4 g/dL (3.4-5.0); CALCIUM 6.7 mg/dL (8.5-10.1); CREATININE 2.5 mg/dL (0.6-1.3); POTASSIUM 4.2 mmol/L (3.5-5.1); TOTAL BILIRUBIN 1.9 mg/dL (<0.1-1.0); TOTAL PROTEIN 5.4 g/dL (6.4-8.2)
[2021-03-11 13:52] LABS: HYPOCHROMASIA 2+; MACROCYTES Occasional; PLATELET ESTIMATE DECREASED
[2021-03-11 13:53] LABS: ANISOCYTOSIS Occasional; OVALOCYTES 1+
[2021-03-11 19:06] LABS: ABSOLUTE LYMPHOCYTES 0.1 thou/uL (0.8-5.3); ABSOLUTE MONOCYTES 0.1 thou/uL (0.0-1.2); ABSOLUTE NEUTROPHILS 2.1 thou/uL (1.6-8.1); BASOPHILS 0.1 %; EOSINOPHILS 0.3 %; MCH 27.2 pg (26.0-34.0); MCHC 33.3 g/dL (28.0-37.0); MCV 81.9 fL (80.0-100.0); MPV 8.1 fl. (7.2-11.1); NUCLEATED RBCS 0 /100WBC; POLYS 88.6 %; RDW-CV 20.6 % (10.5-14.5); WBC 2.4 thou/uL (4.0-11.0)
[2021-03-11 19:19] LABS: HEMATOCRIT 15.6 % (37.0-47.0); HEMOGLOBIN 5.2 gm/dL (12.0-15.0)
[2021-03-11 19:20] LABS: PLATELET COUNT* 33 thou/uL (150-400)
[2021-03-11 19:24] LABS: APTT 39.4 Seconds (25.0-31.3); INR 1.8; PROTIME 18.4 Seconds (9.20-11.50)
[2021-03-11 22:10] LABS: HEMATOCRIT 21.8 % (37.0-47.0)
[2021-03-11 22:13] LABS: HEMOGLOBIN 7.3 gm/dL (12.0-15.0)
[2021-03-12 04:09] VITALS: BP 82/34
[2021-03-12 06:07] LABS: ABSOLUTE EOSINOPHILS 0.1 thou/uL (0.0-0.7); ABSOLUTE LYMPHOCYTES 0.2 thou/uL (0.8-5.3); ABSOLUTE MONOCYTES 0.2 thou/uL (0.0-1.2); BASOPHILS 0.1 %; EOSINOPHILS 2.7 %; HEMATOCRIT 21.2 % (37.0-47.0); HEMOGLOBIN 7.1 gm/dL (12.0-15.0); LYMPHOCYTES 8.8 %; MCH 26.5 pg (26.0-34.0); MCHC 33.3 g/dL (28.0-37.0); MCV 79.4 fL (80.0-100.0); MONOCYTES 7.9 %; MPV 8.8 fl. (7.2-11.1); NUCLEATED RBCS 0 /100WBC; POLYS 80.5 %; RBC 2.67 mil/uL (4.20-5.00); RDW-CV 20.5 % (10.5-14.5); WBC 2.5 thou/uL (4.0-11.0)
[2021-03-12 06:15] LABS: ALBUMIN 1.7 g/dL (3.4-5.0); CALCIUM 7.4 mg/dL (8.5-10.1); CREATININE 1.9 mg/dL (0.6-1.3); POTASSIUM 4.2 mmol/L (3.5-5.1); TOTAL BILIRUBIN 1.8 mg/dL (<0.1-1.0); TOTAL PROTEIN 4.7 g/dL (6.4-8.2)
[2021-03-12 07:01] LABS: PLATELET COUNT* 38 thou/uL (150-400)
[2021-03-12 08:00] VITALS: BP 103/45
--- NOTE | 2021-03-12 09:47 | EKG ---
[place] [address] ELECTROCARDIOGRAM REPORT Name: ANA DEY Room: [address] ADM IN M.R.#: [id number] Admission: 03/05/21 Attend Phys: Carlos Ramires Discharge: Date of : 52 Date of Service: 03/12/21821 Report #: [id number] THIS REPORT FOR: //name// [facility] Test Date: 2021-03-12 Test Time: 08:22:12 Pat Name: ANA DEY Department: Room: [address] Gender: F Fuselage Framer: : 1950 Requested By: Carlos Ramires Order Number: [id number] MD: Ron Montoya Measurements Intervals [place] Rate: 83 P: 49 [place]: 161 QRS: -20 QRSD: 99 T: 21 QT: 419 QTc: 493 Interpretive Statements Sinus rhythm Borderline left axis deviation Low voltage, precordial leads Borderline prolonged QT interval Baseline wander in lead(s) I,II,aVR Compared to ECG 03/10/2021 16:03:03 Low QRS voltage now present Atrial fibrillation no longer present Left ventricular hypertrophy no longer present Electronically Signed On 03-12-2021 9:47:25 CDT by Ron Montoya [email or web address] <ELECTRONICALLY SIGNED> By: Ron Montoya MD, [facility] 03/12/2147 1 1 Ron Montoya MD, [facility] /EPI
[2021-03-12 19:44] VITALS: BP 102/35
[2021-03-13] VITALS (7 sets, daily range): BP systolic 88–130; BP diastolic 37–62
[2021-03-13 07:18] LABS: MCH 26.3 pg (26.0-34.0); MCHC 33.3 g/dL (28.0-37.0); MCV 79.1 fL (80.0-100.0); MPV 8.4 fl. (7.2-11.1); RBC 2.5 mil/uL (4.20-5.00); RDW-CV 21.2 % (10.5-14.5)
[2021-03-13 07:23] LABS: WBC 1.9 thou/uL (4.0-11.0)
[2021-03-13 07:24] LABS: HEMATOCRIT 19.8 % (37.0-47.0); HEMOGLOBIN 6.6 gm/dL (12.0-15.0)
[2021-03-13 14:10] LABS: ABSOLUTE EOSINOPHILS 0.1 thou/uL (0.0-0.7); ABSOLUTE LYMPHOCYTES 0.5 thou/uL (0.8-5.3); ABSOLUTE MONOCYTES 0.2 thou/uL (0.0-1.2); ABSOLUTE NEUTROPHILS 1.3 thou/uL (1.6-8.1); BASOPHILS 0.2 %; EOSINOPHILS 6.6 %; HEMATOCRIT 22.8 % (37.0-47.0); HEMOGLOBIN 7.6 gm/dL (12.0-15.0); LYMPHOCYTES 23.1 %; MCHC 33.4 g/dL (28.0-37.0); MCV 80.9 fL (80.0-100.0); MPV 8.4 fl. (7.2-11.1); NUCLEATED RBCS 0 /100WBC; POLYS 60.1 %; RBC 2.82 mil/uL (4.20-5.00); RDW-CV 20.8 % (10.5-14.5); WBC 2.2 thou/uL (4.0-11.0)
[2021-03-13 14:18] LABS: PLATELET COUNT* 38 thou/uL (150-400)
[2021-03-13 14:25] LABS: ALBUMIN 1.9 g/dL (3.4-5.0); CALCIUM 7.4 mg/dL (8.5-10.1); CREATININE 1.4 mg/dL (0.6-1.3); POTASSIUM 3.5 mmol/L (3.5-5.1); TOTAL BILIRUBIN 1.7 mg/dL (<0.1-1.0); TOTAL PROTEIN 4.9 g/dL (6.4-8.2)
[2021-03-14] VITALS: BP 100/53
[2021-03-14 04:48] VITALS: BP 108/58
[2021-03-14 06:58] LABS: ABSOLUTE EOSINOPHILS 0.1 thou/uL (0.0-0.7); ABSOLUTE LYMPHOCYTES 0.4 thou/uL (0.8-5.3); ABSOLUTE MONOCYTES 0.2 thou/uL (0.0-1.2); ABSOLUTE NEUTROPHILS 1.3 thou/uL (1.6-8.1); BASOPHILS 0.5 %; EOSINOPHILS 6.9 %; HEMATOCRIT 22.4 % (37.0-47.0); HEMOGLOBIN 7.5 gm/dL (12.0-15.0); LYMPHOCYTES 20.2 %; MCH 26.8 pg (26.0-34.0); MCHC 33.4 g/dL (28.0-37.0); MCV 80.4 fL (80.0-100.0); MONOCYTES 10.3 %; MPV 7.6 fl. (7.2-11.1); NUCLEATED RBCS 0 /100WBC; POLYS 62.1 %; RBC 2.79 mil/uL (4.20-5.00); RDW-CV 21.1 % (10.5-14.5)
[2021-03-14 07:05] LABS: PLATELET COUNT* 38 thou/uL (150-400)
[2021-03-14 07:41] LABS: ALBUMIN 2.2 g/dL (3.4-5.0); CALCIUM 8.2 mg/dL (8.5-10.1); CREATININE 1.2 mg/dL (0.6-1.3); MAGNESIUM 1.8 mg/dL (1.8-2.4); POTASSIUM 3.6 mmol/L (3.5-5.1); TOTAL BILIRUBIN 1.7 mg/dL (<0.1-1.0)
[2021-03-14 14:15] VITALS: BP 129/59
[2021-03-14 19:09] VITALS: BP 140/56
[2021-03-14 20:00] VITALS: BP 130/36
[2021-03-15 00:47] VITALS: BP 119/47
[2021-03-15 04:11] VITALS: BP 108/51
[2021-03-15 12:00] VITALS: BP 141/45
[2021-03-15 16:00] VITALS: BP 118/49
[2021-03-15 20:00] VITALS: BP 135/56
[2021-03-16] VITALS: BP 105/32
[2021-03-16 04:00] VITALS: BP 114/51
[2021-03-16 05:53] LABS: HEMATOCRIT 22.8 % (37.0-47.0); HEMOGLOBIN 7.6 gm/dL (12.0-15.0); MCH 26.9 pg (26.0-34.0); MCHC 33.4 g/dL (28.0-37.0); MCV 80.6 fL (80.0-100.0); MPV 8.2 fl. (7.2-11.1); NUCLEATED RBCS 0 /100WBC; RBC 2.83 mil/uL (4.20-5.00); RDW-CV 21.1 % (10.5-14.5)
[2021-03-16 05:55] LABS: PLATELET COUNT* 34 thou/uL (150-400); WBC 1.8 thou/uL (4.0-11.0)
[2021-03-16 06:04] LABS: ALBUMIN 3.3 g/dL (3.4-5.0); CALCIUM 8.8 mg/dL (8.5-10.1); CREATININE 1.1 mg/dL (0.6-1.3); POTASSIUM 3.5 mmol/L (3.5-5.1); TOTAL BILIRUBIN 1.7 mg/dL (<0.1-1.0); TOTAL PROTEIN 5.9 g/dL (6.4-8.2)
[2021-03-16 07:19] LABS: ABSOLUTE LYMPHOCYTES 0.2 thou/uL (0.8-5.3); ABSOLUTE NEUTROPHILS 1.5 thou/uL (1.6-8.1); ANISOCYTOSIS 2+; METAMYELOCYTES 2 %; OVALOCYTES 2+; PLATELET ESTIMATE DECREASED
[2021-03-16 07:20] LABS: POLYCHROMASIA 1+
[2021-03-16 08:00] VITALS: BP 130/54
[2021-03-16 12:00] VITALS: BP 128/48
[2021-03-16 16:00] VITALS: BP 134/43
[2021-03-16 20:00] VITALS: BP 165/76
[2021-03-17 01:09] VITALS: BP 107/42
[2021-03-17 05:00] VITALS: BP 101/45
[2021-03-17 06:21] LABS: ABSOLUTE LYMPHOCYTES 0.4 thou/uL (0.8-5.3); ABSOLUTE MONOCYTES 0.1 thou/uL (0.0-1.2); ABSOLUTE NEUTROPHILS 2.9 thou/uL (1.6-8.1); EOSINOPHILS 0.1 %; HEMATOCRIT 23.3 % (37.0-47.0); HEMOGLOBIN 7.6 gm/dL (12.0-15.0); LYMPHOCYTES 12.6 %; MCH 26.6 pg (26.0-34.0); MCHC 32.8 g/dL (28.0-37.0); MONOCYTES 3.6 %; MPV 8.3 fl. (7.2-11.1); NUCLEATED RBCS 0 /100WBC; POLYS 83.7 %; RBC 2.87 mil/uL (4.20-5.00); WBC 3.5 thou/uL (4.0-11.0)
[2021-03-17 06:56] LABS: PLATELET COUNT* 46 thou/uL (150-400)
[2021-03-17 08:00] VITALS: BP 138/52
[2021-03-17 12:07] VITALS: BP 121/37
[2021-03-17] MEDS ORDERED: FLORASTOR250 MG PO (12:35)
[2021-03-17] MEDS ORDERED: LACTULOSE20 GM/30 M PO (12:35)
[2021-03-17] MEDS ORDERED: AUGMENTIN 875-1 EACH PO (12:35)
[2021-03-17] MEDS ORDERED: CARAFATE 1 GM TA1 G1 PO (12:35)
[2021-03-17] MEDS ORDERED: OXYCODONE HCL 55 MG PO (12:35)
[2021-03-17 16:38] VITALS: BP 128/47
[2021-03-17 22:39] VITALS: BP 111/42
[2021-03-18 08:15] VITALS: BP 135/55
[2021-03-18 15:32] VITALS: BP 135/55
[2021-03-18 17:51] VITALS: BP 135/55
--- NOTE | 2021-03-22 10:40 | CON ---
[address] [address] CONSULTATION Name: ANA DEY Ela Room: [address] IN M.R.#: [id number] Admission: 03/05/21 Attend Phys: Phil Quintanilla Discharge: 03/18/21 Date of : 52 Report #: [id number] THIS REPORT FOR: cc: Ondina Spencer Tammy RNP Arakelov, Alexandr V. MD ~ DATE OF CONSULTATION: 03/11/2021 REQUESTING PHYSICIAN: Dr. Ramires. REASON FOR CONSULTATION: Acute kidney injury. HISTORY OF PRESENT ILLNESS: The patient is a 70-year-old female known to us. We have seen several times for decompensated liver cirrhosis with some fluid overload. She presented to the hospital on 03/05 with chief complaint of being weak, not feeling well. She was diagnosed with anemia, hemoglobin 7, decompensated end-stage liver disease. Her creatinine on admission was 1.5, went up to 2.3 yesterday, 2.5 today. She became hypotensive last couple of days. Blood pressure was as low as 79/32, today at 8:00 a.m. PAST MEDICAL HISTORY: Significant for: 1. End-stage liver disease. 2. Chronic kidney disease, stage 3B. 3. History of morbid obesity. 4. Diabetes mellitus type 2. 5. Rheumatoid arthritis. 6. Systemic lupus erythematosus. SOCIAL HISTORY: No current tobacco, alcohol abuse. FAMILY HISTORY: Negative for renal disease. REVIEW OF SYSTEMS: Positive for being very weak. PHYSICAL EXAMINATION: GENERAL: Awake, alert, oriented, tells me that she feels better today than yesterday. VITAL SIGNS: Blood pressure is still low at 81/25, heart rate 64, afebrile. HEENT: Pupils are round. NECK: Fatty. LUNGS: Decreased air movements. CARDIAC: Distant heart tones. ABDOMEN: Obese, soft. It is difficult to say if [place] [address] CONSULTATION Name: ANA DEY Room: [address]#: [id number] Admission: 03/05/21 Attend Phys: Phil Quintanilla Discharge: 03/18/21 Date of : 52 Report #: [id number] abdomen due to severe obesity; however, she had CT scan of the abdomen and pelvis done that revealed presence of some free fluid, but only trace amount. Her CT of chest revealed no evidence of pleural or pericardial effusion. LABORATORY DATA: Hemoglobin is 6.4, platelet count 33, white count 2.0. Serum sodium 130, potassium 4.2, BUN 35, creatinine 2.5. ASSESSMENT AND PLAN: 1. Acute kidney injury. Diagnosis is between hepatorenal syndrome or acute kidney injury due to hypoperfusion because of hyponatremia. 2. End-stage liver disease. 3. Morbid obesity. 4. Diabetes mellitus type 2. 5. Rheumatoid arthritis. PLAN: 1. Continue antibiotics as you are doing. 2. Probably would not diurese especially given the fact that she is so hypotensive. 3. Continue with albumin as you are doing. Overall, prognosis is very poor. She is not a dialysis candidate. <ELECTRONICALLY SIGNED> By: Harshal Dumont MD 03/22/21 1040 1552 1948Alexanya Dumont MD /nt
== END 2021-03-18 17:05 | disposition home or self-care (01) | DRG 871 ==
LOC: M.ERS 09:01 → M.2W 11:27 → M.TBA-ER 11:27 → M.2W 16:02 → M.3W 03-17 20:58
PROVIDERS: Family Medicine; Internal Medicine Nephrology; ADMIT Internal Medicine; ATTEND Internal Medicine
DX: A41.9 Sepsis, unspecified organism (principal); G93.41 Metabolic encephalopathy; K76.7 Hepatorenal syndrome; K25.4 Chronic or unspecified gastric ulcer with hemorrhage; N39.0 Urinary tract infection, site not specified; N17.9 Acute kidney failure, unspecified; Z68.42 Body mass index [BMI] 45.0-49.9, adult; D64.9 Anemia, unspecified; K72.90 Hepatic failure, unspecified without coma; D69.6 Thrombocytopenia, unspecified; M32.9 Systemic lupus erythematosus, unspecified; K74.60 Unspecified cirrhosis of liver; K58.9 Irritable bowel syndrome, unspecified; G89.29 Other chronic pain; E78.5 Hyperlipidemia, unspecified; G43.909 Migraine, unspecified, not intractable, without status migrainosus; M06.9 Rheumatoid arthritis, unspecified; M79.7 Fibromyalgia; K21.9 Gastro-esophageal reflux disease without esophagitis; N18.32 Chronic kidney disease, stage 3b; M19.90 Unspecified osteoarthritis, unspecified site; E11.22 Type 2 diabetes mellitus with diabetic chronic kidney disease; E66.01 Morbid (severe) obesity due to excess calories; Z20.822 Contact with and (suspected) exposure to COVID-19; Z90.710 Acquired absence of both cervix and uterus; Z88.5 Allergy status to narcotic agent; Z88.2 Allergy status to sulfonamides; Z88.8 Allergy status to other drugs, medicaments and biological substances; Z90.49 Acquired absence of other specified parts of digestive tract; Z79.899 Other long term (current) drug therapy

== ENCOUNTER 2021-04-25 14:43 | Emergency (ER) | payer OTHER ==
[~2021-04-25] VITALS: Ht 165.1 cm; Wt 131.1 kg
[~2021-04-25 14:43] MED LIST changes: +AUGMENTIN 875-1 EACH PO; +FLORASTOR250 MG PO; +KRISTALOSE20 GM PO
--- NOTE | 2021-04-25 15:46 | EKG ---
[place] [address] ELECTROCARDIOGRAM REPORT Name: ANA DEY Room: [facility]..#: [id number] Admission: Attend Phys: Discharge: Date of : [birth year] Date of Service: 04/25/21 1540 Report #: [id number] THIS REPORT FOR: //name// [facility] ED Test Date: 2021-04-25 Test Time: 15:40:39 Pat Name: ANA DEY Department: Room: Gender: F Referral And Information Aide: : 1951-10-11 Requested By: Reed Chavez Order Number: [id number] MD: Toni Dubois Measurements Intervals [place] Rate: 71 P: 15 GA: 147 QRS: -21 QRSD: 89 T: 26 QT: 452 QTc: 492 Interpretive Statements Sinus rhythm Left ventricular hypertrophy, by voltage Compared to ECG 03/12/2021 08:22:12 Left ventricular hypertrophy now present Electronically Signed On 04-25-2021 15:46:27 CDT by Toni Dubois [email or web address] <ELECTRONICALLY SIGNED> By: Toni Dubois MD, [facility] 04/25/21 1546 1540 1540 Toni Dubois MD, [facility] /EPI
[2021-04-25 16:26] LABS: ABSOLUTE EOSINOPHILS 0.1 thou/uL (0.0-0.7); ABSOLUTE MONOCYTES 0.3 thou/uL (0.0-1.2); HEMOGLOBIN 7.6 gm/dL (12.0-15.0); MPV 8.4 fl. (7.2-11.1); RBC 2.98 mil/uL (4.20-5.00); WBC 3.9 thou/uL (4.0-11.0)
[2021-04-25 16:30] LABS: ABSOLUTE LYMPHOCYTES 0.4 thou/uL (0.8-5.3); ABSOLUTE NEUTROPHILS 3.1 thou/uL (1.6-8.1); BASOPHILS 0.3 %; EOSINOPHILS 2.9 %; MCH 25.3 pg (26.0-34.0); MCHC 31.5 g/dL (28.0-37.0); MCV 80.5 fL (80.0-100.0); MONOCYTES 7.6 %; NUCLEATED RBCS 0 /100WBC; PLATELET COUNT* 63 thou/uL (150-400); POLYS 80.2 %; RDW-CV 19.9 % (10.5-14.5)
[2021-04-25 16:31] LABS: CREATININE 1.3 mg/dL (0.6-1.3); POTASSIUM 5.1 mmol/L (3.5-5.1)
[2021-04-25 16:40] LABS: ALBUMIN 2.2 g/dL (3.4-5.0); TOTAL BILIRUBIN 1.8 mg/dL (<0.1-1.0); TOTAL PROTEIN 5.5 g/dL (6.4-8.2)
[2021-04-25 17:27] LABS: URINE BILIRUBIN NEGATIVE (Negative); URINE BLOOD NEGATIVE (Negative); URINE CLARITY CLEAR; URINE COLOR DARK YELLOW; URINE GLUCOSE-RANDOM NEGATIVE (Negative); URINE KETONES TRACE (Negative); URINE LEUKOCYTES-REFLEX NEGATIVE (Negative); URINE NITRITE-REFLEX NEGATIVE (Negative); URINE PROTEIN NEGATIVE (Negative); URINE SPECIFIC GRAVITY 1.025 (1.005-1.030); URINE UROBILINOGEN 0.2 E.U./dl (0.2-1.0)
[2021-04-25 19:10] VITALS: BP 103/33
== END 2021-04-25 19:10 | disposition home or self-care (01) ==
LOC: M.ERS 14:43
PROVIDERS: Family Medicine; Nurse Practitioner Family
DX: R10.84 Generalized abdominal pain (principal); R42 Dizziness and giddiness; R19.7 Diarrhea, unspecified; R11.0 Nausea; E66.01 Morbid (severe) obesity due to excess calories; Z68.42 Body mass index [BMI] 45.0-49.9, adult; M19.90 Unspecified osteoarthritis, unspecified site; Z90.49 Acquired absence of other specified parts of digestive tract; Z90.711 Acquired absence of uterus with remaining cervical stump; K21.9 Gastro-esophageal reflux disease without esophagitis; E78.5 Hyperlipidemia, unspecified; E11.9 Type 2 diabetes mellitus without complications; G43.909 Migraine, unspecified, not intractable, without status migrainosus; L40.50 Arthropathic psoriasis, unspecified; Z85.3 Personal history of malignant neoplasm of breast; Z79.899 Other long term (current) drug therapy; Z91.048 Other nonmedicinal substance allergy status; Z88.5 Allergy status to narcotic agent; Z91.040 Latex allergy status; Z91.041 Radiographic dye allergy status; Z88.8 Allergy status to other drugs, medicaments and biological substances; Z88.2 Allergy status to sulfonamides; Z88.1 Allergy status to other antibiotic agents

== ENCOUNTER 2021-06-06 15:40 | Inpatient (IN) | payer OTHER ==
[~2021-06-06] VITALS: Ht 165.1 cm; Wt 156.0 kg
--- NOTE | ~2021-06-06 | PROC ---
[address] [address] PROCEDURE REPORT Name: ANA DEY Room: [address] IN M.R.#: [id number] Admission: 06/06/21 Attend Phys: Ludy Edge MD Discharge: 06/10/21 Date of : [birth year] Report #: [id number] THIS REPORT FOR: cc: GEO - Maria Antonia family physician/PCP Ondina Spencer [facility],Medical Records Staff ~ For GI report, please see the Provation report in Perceptive 7 content. By: [id number] Records Staff [facility] /JASMINE
--- NOTE | ~2021-06-06 | CON ---
[address] [address] CONSULTATION Name: ANA DEY Room: [address] ADM IN M.R.#: [id number] Admission: 06/06/21 Attend Phys: Ludy Edge MD Discharge: Date of : [birth year] Report #: [id number] THIS REPORT FOR: cc: GEO - No family physician/PCP Ondina Spencer Farid M. MD ~ cc: YONY Gonzales DATE OF CONSULTATION: 06/08/2021 Please note the time of this dictation, the patient was seen and physically examined by myself. 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 She was to have a repeat and never had this done. The patient states she has been taking her Carafate and her Protonix regularly as well as her diuretics; however, she quit taking her lactulose 3 days ago, per her spouse saying that she was acting more confused and complaining of fevers, runny nose and diffuse body aches everywhere. She fell on Monday after feeling very lightheaded when she went to the bathroom and having pain in both of her hips. The patient underwent an EGD back in February that showed superficial erosions that were oozing in the gastric. Previous EGD earlier in the year did show grade 1 varices, but were not noted at this time. Colonoscopy done in July showed colon polyps in the descending and transverse colon with diverticulosis. The patient states her bowels are currently moving about once a day and she has not noticed any bright red blood or melanotic stool at this time. ALLERGIES: SULFA, IODINE, CODEINE, NITROFURAN, MIDODRINE, LEVOTHYROXINE, LATEX, IODINE, AND ADHESIVE TAPE. MEDICATIONS FROM HOME: Include Nexium b.i.d., Cymbalta, Elavil, temazepam, Lipitor, Singulair, Cytomel, vitamin D, Neurontin, Toprol, Flovent, Flexeril, oxybutynin, lidocaine, buspirone, albuterol, , folic acid and Gaviscon, Xifaxan, spironolactone and Lasix along with Carafate. PAST MEDICAL HISTORY: Morbid obesity, irritable bowel syndrome, cellulitis, osteoarthritis, chronic pain, GERD, hyperlipidemia, lupus, diabetes, hypothyroid, migraines, rheumatoid arthritis, psoriatic arthritis, Graves' disease, fibromyalgia, history of lymphoma, cirrhosis of the liver. PAST SURGICAL HISTORY: Cholecystectomy, hysterectomy, right breast tumor removal. FAMILY HISTORY: [place] [address] CONSULTATION Name: ANA DEY Room: [address] IN M.R.#: [id number] Admission: 06/06/21 Attend Phys: Ludy Edge MD Discharge: Date of : [birth year] Report #: [id number] SOCIAL HISTORY: Denies any alcohol, tobacco, or illegal drug use. REVIEW OF SYSTEMS: Twelve-point review of systems is essentially negative except what is mentioned in the HPI. PHYSICAL EXAMINATION: VITAL SIGNS: Temperature 36.9, pulse 80, respirations 18, blood pressure 90/52. HEART: Regular rate and rhythm with murmur noted. LUNGS: Diminished, but clear. ABDOMEN: Soft, positive bowel sounds with diffuse tenderness and fluid wave noted. Very large pannus noted as well. LABORATORY DATA: Hemoglobin is 5.8. The patient is refusing blood because it made her sick, the last time. White count is 2.4, platelets are 64. BUN is 20, creatinine is 1.5, total bilirubin is 2.5. Alkaline phosphatase is 124, ALT is 10 and AST is 19 and her ammonia is 75. CT shows a large amount of ascitic fluid. IMPRESSION: 1. Acute on chronic anemia. 2. Portal hypertensive gastropathy and gastric antral vascular ectasia. 3. Nausea. 4. Ascites. 5. Cirrhosis of the liver. 6. Hepatic encephalopathy. 7. Pancytopenia. 8. Morbid obesity. PLAN: 1. EGD today with Dr. Boss. 2. Paracentesis with cell count, fluid albumin and fluid total protein along with culture and sensitivity. 3. The patient is refusing blood transfusion since it made her sick, the last time; however, discussed with the patient that Anesthesia and Interventional Radiology will likely not perform their procedures unless she does get a unit of blood. The patient states that if that is the case, then she would accept getting a blood transfusion and then proceed with procedures. 4. Further recommendations to be made after the above has all been performed. [address] [address] CONSULTATION Name: ANA DEY Room: [address] IN M.R.#: [id number] Admission: 06/06/21 Attend Phys: Ludy Edge MD Discharge: Date of : [birth year] Report #: [id number] Thank you for allowing us to participate in this patient's care. Please do not hesitate to call with any questions regarding this consult. By: 0815 [id number]-Marie Boss MD /nt
[2021-06-06 15:58] VITALS: BP 117/29
[2021-06-06 16:36] LABS: ABSOLUTE EOSINOPHILS 0.2 thou/uL (0.0-0.7); ABSOLUTE LYMPHOCYTES 0.6 thou/uL (0.8-5.3); ABSOLUTE MONOCYTES 0.4 thou/uL (0.0-1.2); BASOPHILS 0.2 %; EOSINOPHILS 4.2 %; HEMATOCRIT 21.2 % (37.0-47.0); LYMPHOCYTES 13.4 %; MCHC 30.6 g/dL (28.0-37.0); MCV 78.4 fL (80.0-100.0); MONOCYTES 9.8 %; MPV 8.2 fl. (7.2-11.1); NUCLEATED RBCS 0 /100WBC; PLATELET COUNT* 104 thou/uL (150-400); POLYS 72.4 %; RBC 2.71 mil/uL (4.20-5.00); RDW-CV 20.2 % (10.5-14.5); WBC 4.2 thou/uL (4.0-11.0)
[2021-06-06 16:42] LABS: CALCIUM 8.3 mg/dL (8.5-10.1); CREATININE 1.8 mg/dL (0.6-1.3); POTASSIUM 4.4 mmol/L (3.5-5.1)
[2021-06-06 16:45] LABS: HEMOGLOBIN 6.5 gm/dL (12.0-15.0)
[2021-06-06 16:47] LABS: ALBUMIN 2.2 g/dL (3.4-5.0); TOTAL BILIRUBIN 2.5 mg/dL (<0.1-1.0)
[2021-06-06 17:22] LABS: APTT 27.6 Seconds (25.0-31.3); INR 1.3
[2021-06-06 17:33] LABS: URINE BILIRUBIN NEGATIVE (Negative); URINE BLOOD TRACE (Negative); URINE CLARITY CLEAR; URINE COLOR YELLOW; URINE GLUCOSE-RANDOM NEGATIVE (Negative); URINE KETONES TRACE (Negative); URINE LEUKOCYTES-REFLEX TRACE (Negative); URINE NITRITE-REFLEX NEGATIVE (Negative); URINE PROTEIN NEGATIVE (Negative)
[2021-06-06 17:40] LABS: MUCUS None Seen strn/LPF (None Seen); SQUAMOUS >10 Many /LPF (0-3)
[2021-06-06 17:41] LABS: CRYSTALS None Seen /LPF (None Seen); HYALINE CASTS 4-10 Moderate /LPF (None Seen); URINE RBC 0-2 Rare /HPF (0-2); URINE WBC-REFLEX 6-15 Few /HPF (0-5)
[2021-06-06 17:54] LABS: OVALOCYTES 1+
[2021-06-06 17:56] LABS: HYPOCHROMASIA 1+; PLATELET ESTIMATE ADEQUATE
[2021-06-06 17:57] LABS: ANISOCYTOSIS 2+; MICROCYTES 1+
--- NOTE | 2021-06-06 19:06 | NUR ---
PER DR VITALE PT AND REFUSING BLOOD AT THIS TIME.
[2021-06-06 22:00] VITALS: BP 127/67
[2021-06-07] VITALS (8 sets, daily range): BP systolic 90–118; BP diastolic 22–62
--- NOTE | 2021-06-07 16:07 | EKG ---
[place] [address] ELECTROCARDIOGRAM REPORT Name: ANA DEY Room: [address] ADM IN M.R.#: [id number] Admission: 06/06/21 Attend Phys: Ludy Edge, Discharge: Date of : [birth year] Date of Service: 06/06/21 1623 Report #: [id number] THIS REPORT FOR: //name// [facility] ED Test Date: 2021-06-06 Test Time: 16:23:52 Pat Name: ANA DEY Department: Room: [facility] Gender: F Model Technician: BEULAH : 1951-10-11 Requested By: Stevo Ramirez Order Number: [id number] MD: Ron Montoya Measurements Intervals [place] Rate: 69 P: 56 [place]: 145 QRS: -17 QRSD: 99 T: 19 QT: 453 QTc: 486 Interpretive Statements Sinus rhythm Borderline left axis deviation Low voltage, precordial leads Consider anterior infarct Compared to ECG 04/25/2021 15:40:39 Low QRS voltage now present Left ventricular hypertrophy no longer present Electronically Signed On 06-07-2021 16:07:17 CDT by Ron Montoya [email or web address] <ELECTRONICALLY SIGNED> By: Ron Montoya MD, FACC 06/07/21 1607 1623 1623 Ron Montoya MD, FACC /EPI
--- NOTE | 2021-06-08 04:20 | NUR ---
PT ALERT ORIENTED FORGETFUL AT TIMES. TURNS SELF. PURE WICK IN PLACE. 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
[2021-06-08 04:51] VITALS: BP 90/52
[2021-06-08 05:24] LABS: MCH 23.8 pg (26.0-34.0); MCV 76.6 fL (80.0-100.0); MPV 7.9 fl. (7.2-11.1); RBC 2.43 mil/uL (4.20-5.00); RDW-CV 20.6 % (10.5-14.5); WBC 2.4 thou/uL (4.0-11.0)
[2021-06-08 05:30] LABS: CALCIUM 8.4 mg/dL (8.5-10.1); CREATININE 1.5 mg/dL (0.6-1.3); POTASSIUM 3.5 mmol/L (3.5-5.1)
[2021-06-08 05:34] LABS: HEMATOCRIT 18.6 % (37.0-47.0); HEMOGLOBIN 5.8 gm/dL (12.0-15.0)
[2021-06-08 08:00] VITALS: BP 89/29
[2021-06-08] MEDS ORDERED: UBRELVY100 MG PO (09:43)
[2021-06-08] MEDS ORDERED: ROXICODONE5 M2 PO (11:19)
[2021-06-08] MEDS ORDERED: RESTASIS1 EACH OPHTHALMIC (11:23)
[2021-06-08] MEDS ORDERED: ONDANSETRON ODT8 MG PO (11:24)
[2021-06-08 12:35] VITALS: BP 104/29
[2021-06-08 13:47] VITALS: BP 107/36; BP 108/39; BP 116/70
--- NOTE | 2021-06-08 15:28 | NUR ---
CM ASSESSMENT: PT A&O, PT RESIDES AT HOME WITH SPOUSE. PT USES WALKER AND CANE FOR MOBILITY. PT HAS PAST HX OF HH WITH [facility]. PT HAS 0 HX OF SNF. PT INFORMS OF PLAN TO RETURN HOME WITH SELF-CARE AT D/C, AND DECLINED NEED FOR HH. CM WILL REMAIN AVAILABLE TO ASSIST AND FOLLOW NEEDED.
[2021-06-08 16:59] LABS: HEMATOCRIT 22.7 % (37.0-47.0); HEMOGLOBIN 7.1 gm/dL (12.0-15.0)
[2021-06-08 18:29] VITALS: BP 102/35; BP 89/36; BP 98/30; BP 99/34
--- NOTE | 2021-06-08 18:38 | NUR ---
ASSUMED PT CARE AT 0730, PT AOX4, SOMETIMES FORGETFUL. PT WORKED W/ GI TODAY AND MADE NPO FOR EGD WHICH WAS COMPLETED, SEE NOTES IN CHART. PT AGREEABLE TO 2 UNITS OF BLOOD SINCE HGB WAS 5.8 AND GI LET PT KNOW THAT ANESTHESIOLOGY MIGHT NOT BE OKAY W/ GOING FORWARD W/ EGD AND SCHEDULED PARACENTESIS TOMORROW W/ HGB BEING SO LOW. FIRST UNIT OF BLOOD TRANSFUSED W/ NO ADVERSE REACTIONS, SECOND UNIT OF BLOOD JUST STARTED AND GOING NOW, PT TOLERATING WELL. INITIALLY PT WAS UN-AGREEABLE TO BLOOD TRANSFUSIONS R/T HER LAST TRANSFUSION MAKING HER FEEL LIKE "SHE HAD THE FLU". PT IN ROOM TODAY AND UPDATED ON POC. GOAL IS TO REMAIN FREE FROM BLEEDING AND CONTINUE TO TOLERATE BLOOD TRANSFUSION WELL.
[2021-06-08 19:48] VITALS: BP 98/30
[2021-06-09] VITALS (7 sets, daily range): BP systolic 96–120; BP diastolic 27–53
--- NOTE | 2021-06-09 02:32 | NUR ---
PT ALERT ORIENTED. BED REST TURNS SELF. SECOND UNIT OF PRBCS GIVEN. PUBLICITY WRITER SR. TYLENOL GIVEN FOR PAIN. MELATONIN FOR SLEEP.
[2021-06-09 04:38] LABS: HEMATOCRIT 21.8 % (37.0-47.0); MCV 78.1 fL (80.0-100.0); RBC 2.79 mil/uL (4.20-5.00); RDW-CV 20.6 % (10.5-14.5); WBC 2.3 thou/uL (4.0-11.0)
[2021-06-09 04:47] LABS: CALCIUM 8.1 mg/dL (8.5-10.1); CREATININE 1.5 mg/dL (0.6-1.3); POTASSIUM 3.3 mmol/L (3.5-5.1)
--- NOTE | 2021-06-09 11:39 | NUR ---
Nutrition: Pt admitted with renal failure. Seen for high BMI. Pt and in room. H/o OBE, DM, lupus, GERd, cirrhosis, HTN, Graves. Wt fluctuates d/t fluid, 340-370#. Current wt 344#. Regular diet ordered. I gave them a menu for ordering meals. Pt said she is eating well. Labs: albumin 2.2, prealb 5.9, BG 108. Protein stores are low, but pt has fluid on; she is having fluid removed today. She said she feels pretty good. She has no nutrition questions or concerns. Consider mild risk.
[2021-06-09 15:40] LABS: BF RBC 1769 /mm3; TOTAL CELL COUNT 166 /mm3
[2021-06-09 15:58] LABS: CLARITY CLEAR; SOURCE ASCITES; TOTAL VOLUME 2310 ml
--- NOTE | 2021-06-09 16:11 | NUR ---
PLAN OF CARE: PHYSICIAN INFORMS OF PLAN FOR THE PT TO POSSIBLY D/C HOME TOMORROW WITH SELF-CARE. PT/OT EVALS ORDERED. NO CM D/C PLANNING NEEDS ANTICIPATED. CM WILL REMAIN AVAILABLE TO ASSIST AND FOLLOW NEEDED.
--- NOTE | 2021-06-09 16:12 | NUR ---
PLAN OF CARE: PHYSICIAN INFORMS OF PLAN FOR THE PT TO D/C IN 24-48 HRS. NO CM D/C PLANNING NEEDS ANTICIPATED AT THIS TIME. CM WILL REMAIN AVAILABLE TO ASSIST AND FOLLOW NEEDED.
--- NOTE | 2021-06-09 16:41 | NUR ---
ASSUMED PT CARE AT 0730. PT IS PLEASANTLY A&OX3. ASSESSMENT COMPLETED. PT UP TO BSC WITH ASSIST OF TWO. BLE EDEMA NOTED. PT DENIES ANY DISCOMFORT AT THIS TIME. PT HAD A PARACENTESIS TODAY WITH [address] TO RUQ AND IS DRY AND INTACT. SAFETY MEASURES IN PLACE AND MEDICATIONS ADMINISTERED ORDERED.
[2021-06-09 17:49] LABS: BF LYMPHOCYTES 94 %; BF POLYS 6 %; BF TISSUE 20 /100 WBC
[2021-06-10] VITALS: BP 64/22
[2021-06-10 04:50] VITALS: BP 92/63
--- NOTE | 2021-06-10 05:30 | NUR ---
PT AO X4 LYING IN BED FOR ASSESSMENT, PT ROOM AIR SATTING APPROPRIATELY. LUNGS DIMINISHED THROUGHOUT WITH NON-PRODUCTIVE COUGH REPORTED. PT HAS PURE WICK IN PLACE WITH ADEQUATE AMOUNTS OF CLEAR ALFIE URINE. PT MAIN COMPLAINT OF NAUSEA AND HAS REQUESTED ZOFRAN X2 THIS SHIFT. PT NSR ON TELEMETRY WITH VERY AUDIBLE MURMUR PRESENT. BP HAS BEEN SOFT AND REMAINS ASYMPTOMATIC. CALL LIGHT IN REACH AND BED ALARM ON FOR PT SAFETY.
[2021-06-10 08:10] VITALS: BP 104/27
[2021-06-10] MEDS ORDERED: CARAFATE 1 GM TA1 G1 PO (10:04)
[2021-06-10] MEDS ORDERED: CEFDINIR300 MG PO (10:04)
[2021-06-10] MEDS ORDERED: PROTONIX40 M2 PO (10:04)
[2021-06-10 10:59] LABS: HEMATOCRIT 26.8 % (37.0-47.0); HEMOGLOBIN 8.1 gm/dL (12.0-15.0); MCHC 30.3 g/dL (28.0-37.0); MCV 82.4 fL (80.0-100.0); MPV 8.1 fl. (7.2-11.1); RBC 3.26 mil/uL (4.20-5.00); WBC 2.7 thou/uL (4.0-11.0)
[2021-06-10 12:00] VITALS: BP 119/50
[2021-06-10 12:22] VITALS: BP 119/50
--- NOTE | 2021-06-10 13:27 | NUR ---
PHYSICIAN INFORMS OF PLAN FOR THE PT TO D/C HOME WITH NO CM NEEDS. PT IN AGREEMENT. CM WILL REMAIN AVAILABLE TO ASSIST AND FOLLOW NEEDED.
--- NOTE | 2021-06-10 14:41 | NUR ---
ORDERS RECEIVED AND CHART REVIEWED. PATIENT WAS DISCHARGED PRIOR TO P.T. ASSESSMENT. SIRENA CHAN, MPT
[2021-06-14 04:06] LABS: BODY FLUID PROTEIN 0.8 g/dL (())
== END 2021-06-10 13:20 | disposition home or self-care (01) | DRG 441 ==
LOC: M.ERS 15:40 → M.TBA-ER 17:40 → M.2W 17:40 → M.TBA-ER 22:21 → M.2W 06-07 09:50
PROVIDERS: Emergency Medicine Emergency Medical Services; Family Medicine; Internal Medicine Gastroenterology; Nurse Practitioner Adult Health; ADMIT Internal Medicine; ATTEND Internal Medicine
PROC: 0W3P8ZZ Control Bleeding in Gastrointestinal Tract, Via Natural or Artificial Opening Endoscopic (ICD-10-PCS; principal; 2021-06-08)
PROC: 30233N1 Transfusion of Nonautologous Red Blood Cells into Peripheral Vein, Percutaneous Approach (ICD-10-PCS; principal; 2021-06-08)
PROC: 0W9G3ZZ Drainage of Peritoneal Cavity, Percutaneous Approach (ICD-10-PCS; 2021-06-09)
DX: K72.00 Acute and subacute hepatic failure without coma (principal); N17.0 Acute kidney failure with tubular necrosis; G93.41 Metabolic encephalopathy; E72.20 Disorder of urea cycle metabolism, unspecified; D61.818 Other pancytopenia; K76.6 Portal hypertension; N39.0 Urinary tract infection, site not specified; Z68.43 Body mass index [BMI] 50.0-59.9, adult; K31.819 Angiodysplasia of stomach and duodenum without bleeding; K74.60 Unspecified cirrhosis of liver; K72.10 Chronic hepatic failure without coma; Z20.822 Contact with and (suspected) exposure to COVID-19; E66.01 Morbid (severe) obesity due to excess calories; M19.90 Unspecified osteoarthritis, unspecified site; K21.9 Gastro-esophageal reflux disease without esophagitis; G89.29 Other chronic pain; E78.5 Hyperlipidemia, unspecified; E11.9 Type 2 diabetes mellitus without complications; G43.909 Migraine, unspecified, not intractable, without status migrainosus; M06.9 Rheumatoid arthritis, unspecified; K31.89 Other diseases of stomach and duodenum; M32.9 Systemic lupus erythematosus, unspecified; K44.9 Diaphragmatic hernia without obstruction or gangrene; D50.9 Iron deficiency anemia, unspecified; B96.1 Klebsiella pneumoniae [K. pneumoniae] as the cause of diseases classified elsewhere; Z88.2 Allergy status to sulfonamides; Z88.8 Allergy status to other drugs, medicaments and biological substances; Z90.49 Acquired absence of other specified parts of digestive tract; Z90.710 Acquired absence of both cervix and uterus; Z85.72 Personal history of non-Hodgkin lymphomas; Z88.6 Allergy status to analgesic agent; Z91.041 Radiographic dye allergy status; Z91.040 Latex allergy status

== ENCOUNTER 2021-07-10 14:30 | Inpatient (IN) | payer OTHER ==
[~2021-07-10] VITALS: Ht 165.1 cm; Wt 141.5 kg
--- NOTE | ~2021-07-10 | PROC ---
[address] [address] PROCEDURE REPORT Name: ANA DEY Room: [address] IN M.R.#: [id number] Admission: 07/10/21 Attend Phys: Floyd Kuhn MD Discharge: 07/14/21 Date of : [birth year] Report #: [id number] THIS REPORT FOR: cc: Ondina Spencer Tammy RNP [facility],Medical Records Staff ~ For GI report, please see the Provation report in Perceptive 7 content. By: 1458Medical Records Staff [facility]AN[facility] /JASMINE
[~2021-07-10 14:30] MED LIST changes: +ONDANSETRON ODT8 MG PO; +PROTONIX40 M2 PO; +RESTASIS1 EACH OPHTHALMIC; +ROXICODONE5 M2 PO; +UBRELVY100 MG PO
[2021-07-10 14:31] VITALS: BP 77/32
[2021-07-10 15:07] LABS: ABSOLUTE EOSINOPHILS 0.1 thou/uL (0.0-0.7); ABSOLUTE LYMPHOCYTES 0.5 thou/uL (0.8-5.3); ABSOLUTE MONOCYTES 0.2 thou/uL (0.0-1.2); EOSINOPHILS 4.4 %; HEMATOCRIT 21.1 % (37.0-47.0); LYMPHOCYTES 17.7 %; MCH 23.8 pg (26.0-34.0); MCHC 31.3 g/dL (28.0-37.0); MONOCYTES 8.2 %; MPV 7.6 fl. (7.2-11.1); NUCLEATED RBCS 0 /100WBC; PLATELET COUNT* 73 thou/uL (150-400); POLYS 68.7 %; RBC 2.78 mil/uL (4.20-5.00); WBC 2.9 thou/uL (4.0-11.0)
[2021-07-10 15:16] LABS: HEMOGLOBIN 6.6 gm/dL (12.0-15.0)
[2021-07-10 15:20] LABS: CALCIUM 8.2 mg/dL (8.5-10.1); CREATININE 1.3 mg/dL (0.6-1.3); POTASSIUM 3.8 mmol/L (3.5-5.1)
[2021-07-10 15:29] LABS: ALBUMIN 1.9 g/dL (3.4-5.0); TOTAL BILIRUBIN 1.6 mg/dL (<0.1-1.0)
[2021-07-10 15:47] LABS: URINE BILIRUBIN NEGATIVE (Negative); URINE BLOOD TRACE (Negative); URINE CLARITY CLEAR; URINE COLOR YELLOW; URINE GLUCOSE-RANDOM NEGATIVE (Negative); URINE KETONES NEGATIVE (Negative); URINE LEUKOCYTES-REFLEX NEGATIVE (Negative); URINE NITRITE-REFLEX NEGATIVE (Negative); URINE PROTEIN NEGATIVE (Negative)
[2021-07-10 15:52] LABS: PLATELET ESTIMATE DECREASED
[2021-07-10 15:53] LABS: ANISOCYTOSIS 2+; HYPOCHROMASIA 1+; MICROCYTES 1+
--- NOTE | 2021-07-10 17:00 | NUR ---
BLOOD COSIGNED BY TWO RNS, THIS NURSE AND DANIEL CONSTANTINO RN. BLOOD STARTED AT 75MLS/HR. SEE PAPER FLOW SHEET FLOW SHEET
--- NOTE | 2021-07-10 17:15 | NUR ---
Patient tolerated the 75mls/hr. Rate increased to 175mls/hr. See paper flow sheet.
--- NOTE | 2021-07-10 18:45 | NUR ---
PATIENT HAD BLOOD TRANSFUSED. NO SIGNS OF DISTRESS UPON COMPLETION. SEE FLOW SHEET
[2021-07-10 20:46] LABS: INFLUENZA A ANTIGEN Negative (Negative); INFLUENZA B ANTIGEN Negative (Negative)
[2021-07-10 20:53] VITALS: BP 115/65
[2021-07-10 23:19] LABS: HEMOGLOBIN 6.7 gm/dL (12.0-15.0)
--- NOTE | 2021-07-10 23:23 | NUR ---
CATHI GIFFORD REGARDING HEMOGLOBIN. AWAITING PHONE CALL
[2021-07-11] VITALS (10 sets, daily range): BP systolic 89–140; BP diastolic 34–46
--- NOTE | 2021-07-11 | NUR ---
ORDERS RECEIVED FROM DR. FERNANDEZ FOR 1 UNIT PRBC AFTER RECEIVING CBC RESULTS.
[2021-07-11 01:40] LABS: CALCIUM 8.3 mg/dL (8.5-10.1); CREATININE 1.2 mg/dL (0.6-1.3); POTASSIUM 3.8 mmol/L (3.5-5.1)
[2021-07-11 05:35] LABS: ABSOLUTE EOSINOPHILS 0.1 thou/uL (0.0-0.7); ABSOLUTE LYMPHOCYTES 0.5 thou/uL (0.8-5.3); ABSOLUTE MONOCYTES 0.3 thou/uL (0.0-1.2); ABSOLUTE NEUTROPHILS 1.9 thou/uL (1.6-8.1); BASOPHILS 0.6 %; EOSINOPHILS 3.7 %; HEMATOCRIT 23.5 % (37.0-47.0); HEMOGLOBIN 7.5 gm/dL (12.0-15.0); LYMPHOCYTES 18.6 %; MCH 24.6 pg (26.0-34.0); MCHC 32.1 g/dL (28.0-37.0); MCV 76.7 fL (80.0-100.0); MONOCYTES 9.1 %; NUCLEATED RBCS 0 /100WBC; PLATELET COUNT* 72 thou/uL (150-400); RBC 3.06 mil/uL (4.20-5.00); RDW-CV 19.8 % (10.5-14.5); WBC 2.8 thou/uL (4.0-11.0)
--- NOTE | 2021-07-11 11:07 | EKG ---
[place] [address] ELECTROCARDIOGRAM REPORT Name: ANA DEY Room: [place] [address] ADM IN M.R.#: [id number] Admission: 07/10/21 Attend Phys: Floyd Kuhn, Discharge: Date of : [birth year] Date of Service: 07/10/21 1433 Report #: [id number] THIS REPORT FOR: //name// [facility] ED Test Date: 2021-07-10 Test Time: 14:33:41 Pat Name: ANA DEY Department: Room: [facility] Gender: F Railroad Baggage Porter: JASMINE : 1951-10-11 Requested By: Devon De Jesus Order Number: [id number] MD: Matt De La Rosa Measurements Intervals [place] Rate: 67 P: 42 ME: 158 QRS: -18 QRSD: 102 T: 13 QT: 458 QTc: 484 Interpretive Statements Sinus rhythm Left ventricular hypertrophy Borderline prolonged QT interval Compared to ECG 06/06/2021 16:23:52 Left ventricular hypertrophy now present Myocardial infarct finding no longer present Electronically Signed On 07-11-2021 11:07:44 SPRING MACHINE OPERATOR by Matt De La Rosa [email or web address] <ELECTRONICALLY SIGNED> By: Fox De La Rosa MD, FACC 07/11/21 1107 143 143 Fox De La Rosa MD, FAC /EPI
[2021-07-11 12:47] LABS: HEMATOCRIT 24.9 % (37.0-47.0); HEMOGLOBIN 7.9 gm/dL (12.0-15.0)
--- NOTE | 2021-07-11 18:11 | NUR ---
Pt drowsy, but oriented and cooperative. Pt's states she was profoundly weak on Monday and "sort of fell out of bed" that morning. Pt was here about one month ago for similar symptoms. Pt received 2 units PRBCs while boarding in ED. BP 100s/40s, afebrile. No complaints at this time. Will continue to monitor.
[2021-07-12 03:44] VITALS: BP 126/35
[2021-07-12 08:28] LABS: ABSOLUTE EOSINOPHILS 0.1 thou/uL (0.0-0.7); ABSOLUTE LYMPHOCYTES 0.5 thou/uL (0.8-5.3); ABSOLUTE MONOCYTES 0.2 thou/uL (0.0-1.2); ABSOLUTE NEUTROPHILS 1.7 thou/uL (1.6-8.1); EOSINOPHILS 3.1 %; HEMATOCRIT 27.1 % (37.0-47.0); HEMOGLOBIN 8.4 gm/dL (12.0-15.0); MCH 24.5 pg (26.0-34.0); MCHC 30.9 g/dL (28.0-37.0); MCV 79.4 fL (80.0-100.0); MONOCYTES 9.4 %; MPV 8.1 fl. (7.2-11.1); NUCLEATED RBCS 0 /100WBC; PLATELET COUNT* 68 thou/uL (150-400); POLYS 67.5 %; RBC 3.42 mil/uL (4.20-5.00); RDW-CV 20.5 % (10.5-14.5); WBC 2.5 thou/uL (4.0-11.0)
[2021-07-12 08:37] LABS: ALBUMIN 2.1 g/dL (3.4-5.0); CALCIUM 8.6 mg/dL (8.5-10.1); CREATININE 1.3 mg/dL (0.6-1.3); POTASSIUM 4.1 mmol/L (3.5-5.1); TOTAL PROTEIN 6.5 g/dL (6.4-8.2)
[2021-07-12 09:12] LABS: ANISOCYTOSIS 1+; MICROCYTES 1+; PLATELET ESTIMATE DECREASED
[2021-07-12 09:13] LABS: HYPOCHROMASIA 2+; OVALOCYTES 1+
[2021-07-12 09:36] VITALS: BP 129/54
[2021-07-12 09:41] VITALS: BP 125/56
--- NOTE | 2021-07-12 10:04 | NUR ---
CM ASSESSMENT: PT ALERT, BUT FORGETFUL. PT KNOWN TO THIS CM FROM PREVIOUS ADMISSION. PT INFORMS THAT SHE CONTINUES TO RESIDE AT HOME WITH HER SPOUSE. PT USES A WALKER OR CANE FOR MOBILITY. PT HAS PAST HX OF HH WITH [facility]. PT HAS 0 HX OF SNF. CM WILL REMAIN AVAILABLE TO ASSIST AND FOLLOW NEEDED.
[2021-07-12 12:00] VITALS: BP 100/59
[2021-07-12 16:00] VITALS: BP 118/48
--- NOTE | 2021-07-12 18:32 | NUR ---
Pt A&O X4, though forgetful at times. Pt's visited and was at bedside for majority of shift. PT/OT worked with patient today. Tuttle remains in place. Will be NPO after MN for EGD tomorrow afternoon per Dr. Boss. VSS. Will continue to monitor.
[2021-07-12 20:00] VITALS: BP 122/44
[2021-07-13 01:44] VITALS: BP 100/52
[2021-07-13 06:07] VITALS: BP 100/48
--- NOTE | 2021-07-13 07:10 | NUR ---
CHANGE SHIFT REPORT GIVEN PATIENT SEEN AT BEDSIDE, IN BED ASLEEP ASSUMED PATIENT CARE
[2021-07-13 08:00] VITALS: BP 113/47; BP 122/43
--- NOTE | 2021-07-13 12:56 | NUR ---
PLAN OF CARE: PHYSICIAN INFORMS THAT THE PT IS NOT MEDICALLY STABLE FOR D/C AT THIS TIME. GI CONSULTED AND PLAN FOR PT TO HAVE EGD. PT MAY BENEFIT FROM HH AT D/C. CM WILL REMAIN AVAILABLE TO ASSIST AND FOLLOW NEEDED.
[2021-07-13 16:26] VITALS: BP 121/41
[2021-07-13 20:30] VITALS: BP 114/47
[2021-07-14] VITALS: BP 105/52
[2021-07-14 04:00] VITALS: BP 104/54
--- NOTE | 2021-07-14 07:30 | NUR ---
PATIENT SLEPT MOST OF THE NIGHT. MIDLINE REMAINS SALINE LOCKED. PATIENT WAS COMPLAINING OF PAIN ONCE. DR FERNANDEZ WAS CALLED FOR HOME PAIN MEDICINE AND WAS GIVEN ONCE. TORRES REMAINS TO DEPENDENT DRAIN. PATIENT WAS SATTING 89-91% ON RA WHILE SLEEPING ABOUT MIDNIGHT. PATIENT WAS PLACED ON OXYGEN 2L SATS CAME UP TO 93-94%. PATIENT HAS BEEN A STACH ON THE MONITOR LOW 100'S. WILL CONTINUE TO MONITOR.
[2021-07-14 08:54] LABS: HEMATOCRIT 24.9 % (37.0-47.0); MCH 24.8 pg (26.0-34.0); MCHC 32.1 g/dL (28.0-37.0); MCV 77.2 fL (80.0-100.0); MPV 8.1 fl. (7.2-11.1); RBC 3.23 mil/uL (4.20-5.00); WBC 2.3 thou/uL (4.0-11.0)
[2021-07-14 12:30] VITALS: BP 125/56
[2021-07-14 16:09] VITALS: BP 125/56
--- NOTE | 2021-07-14 16:29 | NUR ---
Assumed care of pt at 0705, received report from JIMMIE Guerrero. Upon assessment, pt is A&OX4, afebrile, no c/o pain, and is up with an assistX1 and a walker. Lungs are clear, diminished, RA. SpO2 is 92-95% S1S2 hear with a heart murmur. Pt has 2/1 pulses, pt is generally edematous with 2+ pitting edema in the BLE. Pt has normoactive BSX4, round, soft, nontender. Pt has a Tuttle to dependent drainage, catheter is patent, urine is dark yellow. Pt has no skin issues at this time other than general bruising from lab draws and IVs. Pt has a HERBERTH Midline that is patent, flushed with 10mls NS. Pt's spouse is at the bedside. Pt to have an abd US today, pending results, tenative plan is to discharge home later today. Bed in low locked position, call light and personal belongings are within reach of the pt. Will continue to monitor.
--- NOTE | 2021-07-14 16:38 | NUR ---
RN reviewed discharge instructions with patient and pt's spouse. Both were able to ask questions and voice any concerns they may have. Pt dressed in civilian clothes and all her belongings packed and sent with pt's spouse. Tuttle was discontinued. Pt's HERBERTH midline D/C'd, pressure dressing in place. Pt medically cleared for discharge home. Assessment and labs unremarkable. Pt left the unit at 1630 in a wheelchair with nursing staff in stable condition.
--- NOTE | 2021-07-14 17:10 | NUR ---
PLAN FOR THE PT TO D/C TODAY HOME WITH HH. CM ATTEMPTED TO LOCATE HH FOR THE PT. [facility], AND [facility] DECLINED PT D/T STAFFFING OR PT'S INSURANCE. CM FAXED HH REFERRAL TO [facility] AND AWAITING RETURN CALL. CM WILL REMAIN AVAILABLE TO ASSIST AND FOLLOW NEEDED. [facility] PHONE: [phone]
--- NOTE | 2021-07-14 17:23 | CON ---
[address] [address] CONSULTATION Name: ANA DEY Room: [address] IN M.R.#: [id number] Admission: 07/10/21 Attend Phys: Floyd Kuhn MD Discharge: 07/14/21 Date of : [birth year] Report #: [id number] THIS REPORT FOR: cc: Ondina Spencer Tammy RNP Namin, Farid M. MD ~ cc: YONY Gonzales DATE OF CONSULTATION: 07/12/2021 Please note at the time of this dictation, the patient was seen and physically examined by myself. REASON FOR CONSULTATION: Anemia and cirrhosis. HISTORY OF THE PRESENT ILLNESS: This is a 69-year-old female who is well known to our practice. She was last here in May for acute anemia. She underwent an EGD at that time, noting a small hiatal hernia, portal hypertension, gastropathy, gastric antral vascular ectasia with bleeding noted and treated with APC at that time. Prior to that, she had also been here in February and underwent an EGD for superficial erosions that were oozing in the gastric and treated and even previously in 2020, she was noted to have grade 1 varices. She did undergo a colonoscopy back in 2019 that showed colon polyps in the descending and transverse colon with some diverticulosis. After her last EGD, the patient was sent home on Protonix 40 mg b.i.d. and Carafate 1 gram b.i.d. The patient states she had been taking that at home. She denies any nausea, vomiting, abdominal pain or any black or blood in her stools at the time of this admission. She states as long as she takes her acid reflux medicine, she does not have any. She states over the last couple of days, she had not had a bowel movement. Prior to that, she was having a lot of diarrhea, in which she was going 5-6 times a day. She states she quit taking her lactulose because of her diarrhea and then several days later is when brought her in because she was acting very confused and was very stuporous and not responding very well, prompting him to bring her here to the Emergency Room. It was noted in the ER, she was hypotensive, anemic and she had significant lactic acidosis at that time. At the time of admission, it does not appear the patient has been taking any iron supplementation, but it does state that she has been taking all of her medicines including her diuretics for her cirrhosis. She had been taking lactulose t.i.d. at home. ALLERGIES: IODINE, CODEINE, ADHESIVE TAPE, LATEX, LEVOTHYROXINE, MIDODRINE, NITROFURANTOIN AND SULFA. MEDICATIONS FROM HOME: Include Cymbalta, Lipitor, Singulair, folic acid, Cytomel, vitamin D, Neurontin, Toprol, Flovent, Flexeril, Elavil, temazepam, [place] [address] CONSULTATION Name: DEYANA Room: [address] IN [place]#: [id number] Admission: 07/10/21 Attend Phys: Floyd Kuhn MD Discharge: 07/14/21 Date of : [birth year] Report #: [id number] Ubrelvy, Roxicodone, Restasis, ondansetron, Lidoderm, bupropion, albuterol, triamcinolone cream, pantoprazole, Carafate, lactulose, Lasix, spironolactone and Xifaxan. 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 PAST SURGICAL HISTORY: Cholecystectomy, hysterectomy, right breast tumor removal. FAMILY HISTORY: Noncontributory. SOCIAL HISTORY: Denies any alcohol, tobacco or illegal drug use. REVIEW OF SYSTEMS: Twelve-point review of systems is essentially negative except what is mentioned in the HPI. PHYSICAL EXAMINATION: VITAL SIGNS: Temperature 36.3, pulse 84, respirations 18, blood pressure 125/56. HEART: Regular rate and rhythm. LUNGS: Diminished, but clear. ABDOMEN: Soft, positive bowel sounds in all 4 quadrants with no masses or tenderness noted. LABORATORY DATA: Hemoglobin on admission was 6.6, she got 2 units of blood, hemoglobin now is 8.4; white count is 2.5; platelets are 68. GFR is 41. BUN is 3. Alkaline phos is 102, ALT 14, AST is 29. Her CRP is 28. Please note that when she was discharged from the hospital on 06/10, her hemoglobin was 8.1, but has not been taking any iron supplementation. IMPRESSION: 1. Anemia, acute on chronic. 2. Cirrhosis, nonalcoholic steatohepatitis. 3. Gastroesophageal reflux disease. 4. Pancytopenia. 5. Diarrhea. 6. Hepatic encephalopathy. PLAN: 1. EGD tomorrow with Dr. Boss. 2. Continue her Protonix and [place] [address] CONSULTATION Name: ANA DEY Room: [address] IN [facility].#: [id number] Admission: 07/10/21 Attend Phys: Floyd Kuhn MD Discharge: 07/14/21 Date of : [birth year] Report #: [id number] 3. We will decrease her lactulose to b.i.d. secondary to her diarrhea she was complaining about instead of 3 times a day . 4. We will also continue her Xifaxan. 5. Further recommendations to be made after Dr. Boss sees the patient later today. Thank you for allowing us to participate in this patient's care. Please do not hesitate to call with any questions regard to this consult. <ELECTRONICALLY SIGNED> By: Ann-Marie Boss MD 07/14/21 1723 0851 [id number]-Marie Boss MD /nt
== END 2021-07-14 16:35 | disposition home or self-care (01) | DRG 441 ==
LOC: M.ERS 14:30 → M.TBA-ER 16:54 → M.2W 16:54
PROVIDERS: Emergency Medicine Emergency Medical Services; Internal Medicine Gastroenterology; Physician Assistant; ADMIT Internal Medicine; ATTEND Internal Medicine
PROC: 0DJ08ZZ Inspection of Upper Intestinal Tract, Via Natural or Artificial Opening Endoscopic (ICD-10-PCS; 2021-07-10)
PROC: 30233N1 Transfusion of Nonautologous Red Blood Cells into Peripheral Vein, Percutaneous Approach (ICD-10-PCS; principal; 2021-07-11)
PROC: 05HC33Z Insertion of Infusion Device into Left Basilic Vein, Percutaneous Approach (ICD-10-PCS; 2021-07-13)
DX: K72.00 Acute and subacute hepatic failure without coma (principal); R65.11 Systemic inflammatory response syndrome (SIRS) of non-infectious origin with acute organ dysfunction; K92.2 Gastrointestinal hemorrhage, unspecified; D61.818 Other pancytopenia; Z68.43 Body mass index [BMI] 50.0-59.9, adult; K76.6 Portal hypertension; G93.40 Encephalopathy, unspecified; K74.60 Unspecified cirrhosis of liver; Z20.822 Contact with and (suspected) exposure to COVID-19; E66.01 Morbid (severe) obesity due to excess calories; E03.9 Hypothyroidism, unspecified; Z88.2 Allergy status to sulfonamides; Z88.8 Allergy status to other drugs, medicaments and biological substances; D64.9 Anemia, unspecified; K44.9 Diaphragmatic hernia without obstruction or gangrene; Z90.49 Acquired absence of other specified parts of digestive tract; Z90.710 Acquired absence of both cervix and uterus; K21.9 Gastro-esophageal reflux disease without esophagitis; G43.909 Migraine, unspecified, not intractable, without status migrainosus; Z91.040 Latex allergy status; K75.81 Nonalcoholic steatohepatitis (NASH)

== ENCOUNTER 2021-08-04 10:30 | Inpatient (IN) | payer OTHER ==
[~2021-08-04] VITALS: Ht 162.6 cm; Wt 127.0 kg
[2021-08-04 10:35] VITALS: BP 148/72
[2021-08-04 11:22] LABS: ABSOLUTE EOSINOPHILS 0.1 thou/uL (0.0-0.7); ABSOLUTE LYMPHOCYTES 0.4 thou/uL (0.8-5.3); ABSOLUTE MONOCYTES 0.2 thou/uL (0.0-1.2); ABSOLUTE NEUTROPHILS 1.7 thou/uL (1.6-8.1); BASOPHILS 0.5 %; HEMATOCRIT 24.4 % (37.0-47.0); HEMOGLOBIN 7.5 gm/dL (12.0-15.0); LYMPHOCYTES 16.8 %; MCH 24.1 pg (26.0-34.0); MCHC 30.8 g/dL (28.0-37.0); MCV 78.4 fL (80.0-100.0); MPV 7.4 fl. (7.2-11.1); NUCLEATED RBCS 0 /100WBC; PLATELET COUNT* 67 thou/uL (150-400); POLYS 72.7 %; RBC 3.11 mil/uL (4.20-5.00); RDW-CV 21.3 % (10.5-14.5); WBC 2.4 thou/uL (4.0-11.0)
[2021-08-04 11:34] LABS: APTT 24.2 Seconds (25.0-31.3); INR 1.2; PROTIME 12.5 Seconds (9.20-11.50)
[2021-08-04 11:42] LABS: CALCIUM 7.9 mg/dL (8.5-10.1); CREATININE 1.4 mg/dL (0.6-1.3); POTASSIUM 3.4 mmol/L (3.5-5.1)
[2021-08-04 11:51] LABS: ALBUMIN 2.1 g/dL (3.4-5.0); TOTAL BILIRUBIN 1.7 mg/dL (<0.1-1.0); TOTAL PROTEIN 6.1 g/dL (6.4-8.2)
[2021-08-04 12:16] LABS: ANISOCYTOSIS 2+; HYPOCHROMASIA 2+; MICROCYTES 1+
--- NOTE | 2021-08-04 14:06 | EKG ---
[place] [address] ELECTROCARDIOGRAM REPORT Name: ANA DEY Room: [place] [address] ADM IN .R.#: [id number] Admission: 08/04/21 Attend Phys: Carlos Ramires Discharge: Date of : [birth year] Date of Service: 08/04/21 1048 Report #: [id number] THIS REPORT FOR: //name// [facility] ED Test Date: 2021-08-04 Test Time: 10:48:41 Pat Name: ANA DEY Department: Room: [facility] Gender: F Lime Supervisor: BEULAH : 1951-10-11 Requested By: Roque Carroll Order Number: [id number] MD: Caleb Cedeno Measurements Intervals [place] Rate: 108 P: 46 [place]: 167 QRS: -17 QRSD: 96 T: 20 QT: 372 QTc: 499 Interpretive Statements Probable sinus rhythm; there is artifact which suggest pacing artifact Left ventricular hypertrophy Anterior Q waves, possibly due to LVH Nonspecific ST-T abnormalities Compared to ECG 07/10/2021 14:33:41 Heart rate has increased Nonspecific ST-T changes have occurred Electronically Signed On 08-04-2021 14:06:23 ADDICTIONS THERAPIST by Caleb Cedeno [email or web address] <ELECTRONICALLY SIGNED> By: Caleb Cedeno MD, [facility] 08/04/21 1406 1048 1048 Caleb Cedeno MD, [facility] /EPI
[2021-08-04 15:36] VITALS: BP 104/44
[2021-08-04 18:29] VITALS: BP 104/44
[2021-08-04 18:41] LABS: URINE BILIRUBIN NEGATIVE (Negative); URINE BLOOD TRACE (Negative); URINE CLARITY CLEAR; URINE COLOR YELLOW; URINE GLUCOSE-RANDOM NEGATIVE (Negative); URINE KETONES TRACE (Negative); URINE LEUKOCYTES-REFLEX 1+ (Negative); URINE NITRITE-REFLEX NEGATIVE (Negative); URINE PROTEIN NEGATIVE (Negative); URINE SPECIFIC GRAVITY >= 1.030 (1.005-1.030); URINE UROBILINOGEN 0.2 E.U./dl (0.2-1.0)
[2021-08-04 18:57] LABS: MUCUS None Seen strn/LPF (None Seen); SQUAMOUS >10 Many /LPF (0-3)
[2021-08-04 18:58] LABS: CASTS None Seen /LPF (None Seen); CRYSTALS None Seen /LPF (None Seen); URINE RBC None Seen /HPF (0-2); URINE WBC-REFLEX 6-15 Few /HPF (0-5)
[2021-08-04 18:59] LABS: BACTERIA-REFLEX >30 Many /HPF (None Seen)
[2021-08-04 21:08] VITALS: BP 129/48
[2021-08-05] VITALS: BP 129/54
[2021-08-05 04:00] VITALS: BP 111/41
[2021-08-05 04:16] LABS: HEMATOCRIT 22.7 % (37.0-47.0); HEMOGLOBIN 7.1 gm/dL (12.0-15.0); MCH 24.5 pg (26.0-34.0); MCHC 31.1 g/dL (28.0-37.0); MCV 78.7 fL (80.0-100.0); MPV 7.4 fl. (7.2-11.1); NUCLEATED RBCS 0 /100WBC; PLATELET COUNT* 64 thou/uL (150-400); RBC 2.89 mil/uL (4.20-5.00); RDW-CV 21.2 % (10.5-14.5)
[2021-08-05 04:20] LABS: WBC 1.8 thou/uL (4.0-11.0)
[2021-08-05 05:04] LABS: ALBUMIN 2.1 g/dL (3.4-5.0); CALCIUM 8.1 mg/dL (8.5-10.1); CREATININE 1.1 mg/dL (0.6-1.3); POTASSIUM 3.8 mmol/L (3.5-5.1); TOTAL BILIRUBIN 1.9 mg/dL (<0.1-1.0); TOTAL PROTEIN 5.8 g/dL (6.4-8.2)
[2021-08-05 06:37] LABS: ABSOLUTE EOSINOPHILS 0.1 thou/uL (0.0-0.7); ABSOLUTE LYMPHOCYTES 0.3 thou/uL (0.8-5.3); ABSOLUTE NEUTROPHILS 1.3 thou/uL (1.6-8.1); ANISOCYTOSIS 2+; HYPOCHROMASIA 2+; PLATELET ESTIMATE DECREASED
[2021-08-05 08:08] VITALS: BP 121/48
[2021-08-05 11:37] VITALS: BP 115/37
[2021-08-05 15:26] VITALS: BP 92/31
[2021-08-05 19:45] VITALS: BP 99/46
[2021-08-06] VITALS: BP 104/39
[2021-08-06 04:00] VITALS: BP 95/31
[2021-08-06 08:48] VITALS: BP 103/33
[2021-08-06 12:00] VITALS: BP 95/37
[2021-08-06 16:00] VITALS: BP 105/38
[2021-08-06 20:00] VITALS: BP 106/43
[2021-08-07] VITALS: BP 109/53
[2021-08-07 04:00] VITALS: BP 119/42
[2021-08-07 08:00] VITALS: BP 100/24
[2021-08-07 12:20] VITALS: BP 110/52
[2021-08-07 15:25] VITALS: BP 118/62
[2021-08-07 20:00] VITALS: BP 109/44
[2021-08-08 00:18] VITALS: BP 119/50
[2021-08-08 04:00] VITALS: BP 103/51
[2021-08-08 08:00] VITALS: BP 82/54
[2021-08-08 12:12] VITALS: BP 104/49
[2021-08-08 12:50] LABS: ABSOLUTE EOSINOPHILS 0.1 thou/uL (0.0-0.7); ABSOLUTE LYMPHOCYTES 0.6 thou/uL (0.8-5.3); ABSOLUTE MONOCYTES 0.2 thou/uL (0.0-1.2); ABSOLUTE NEUTROPHILS 1.8 thou/uL (1.6-8.1); BASOPHILS 0.8 %; EOSINOPHILS 5.3 %; HEMATOCRIT 27.8 % (37.0-47.0); HEMOGLOBIN 8.5 gm/dL (12.0-15.0); LYMPHOCYTES 21.3 %; MCHC 30.4 g/dL (28.0-37.0); MCV 78.8 fL (80.0-100.0); MONOCYTES 8.4 %; MPV 8.2 fl. (7.2-11.1); NUCLEATED RBCS 0 /100WBC; PLATELET COUNT* 68 thou/uL (150-400); POLYS 64.2 %; RBC 3.53 mil/uL (4.20-5.00); RDW-CV 21.4 % (10.5-14.5); WBC 2.8 thou/uL (4.0-11.0)
[2021-08-08 15:52] VITALS: BP 110/34
[2021-08-08 20:00] VITALS: BP 95/36
[2021-08-09] VITALS: BP 111/69
[2021-08-09 04:00] VITALS: BP 100/60
[2021-08-09 09:09] VITALS: BP 90/32
[2021-08-09 12:00] VITALS: BP 109/43
[2021-08-09] MEDS ORDERED: CEFDINIR300 MG PO (12:57)
[2021-08-09] MEDS ORDERED: LACTULOSE20 GM/30 M PO (12:57)
[2021-08-09] MEDS ORDERED: ROXICODONE5 M2 PO (12:57)
[2021-08-09 20:02] VITALS: BP 90/40
[2021-08-10 00:01] VITALS: BP 131/45
[2021-08-10 02:07] VITALS: BP 122/42
[2021-08-10 05:32] VITALS: BP 109/42
[2021-08-10 12:00] VITALS: BP 112/48
--- NOTE | 2021-08-12 16:02 | CON ---
[address] [address] CONSULTATION Name: TIBURCIOANA Ela Room: [address] IN M.R.#: [id number] Admission: 08/04/21 Attend Phys: Phil Quintanilla Discharge: 08/10/21 Date of : [birth year] Report #: [id number] THIS REPORT FOR: cc: Ondina Spencer Tammy RNP Namin, Farid M. MD ~ cc: Carlos Ramires DO, Tammy Osborn, NP DATE OF CONSULTATION: 08/05/2021 HISTORY OF PRESENT ILLNESS: This is a 69-year-old female with history of nonalcoholic steatohepatitis and cirrhosis of liver due to the same. The patient was recently in the hospital and underwent upper endoscopy, which was significant for portal hypertensive gastropathy, but no varices were noted. She was brought to the hospital as she was confused and falling and very weak as she was trying to use the bathroom. She claims that she takes lactulose once a day at home and may have one bowel movement per day. The patient also noted to have pancytopenia. She denies any fever or chills, but reports abdominal pain. PAST MEDICAL HISTORY: Significant for: 1. History of fatty liver disease and cirrhosis due to the same. 2. Hypothyroidism. 3. Asthma. 4. Encephalopathy. 5. GERD. 6. Hypertension. 7. Morbid obesity. 8. Osteoarthritis. 9. History of gallbladder disease, status post cholecystectomy. 10. Hysterectomy. ALLERGIES: SIGNIFICANT FOR ADHESIVE TAPE, CODEINE, IODINE, LATEX, LEVOTHYROXINE, NITROFURANTOIN, SULFA. MEDICATIONS: Please refer to MAR. PHYSICAL EXAMINATION: VITAL SIGNS: Blood pressure of 92/37, pulse is 70, temperature 98.2. LUNGS: Clear. CARDIOVASCULAR: Regular. ABDOMEN: Large, soft, tender to palpation in the epigastric region. NEUROLOGIC: The patient is alert and oriented x3[place] [address] CONSULTATION Name: ANA DEY Room: [address]#: [id number] Admission: 08/04/21 Attend Phys: Phil Quintanilla Discharge: 08/10/21 Date of : [birth year] Report #: [id number] LABORATORY DATA: Reveals sodium of 138, potassium is 3.8, BUN is 14, creatinine 1.1. AST 19, ALT 14, alkaline phosphatase 112, total bilirubin is 1.9. WBC is 1.8, hemoglobin 7.1 with platelets of 64,000. IMAGING: CT of abdomen and pelvis was obtained. This is significant for cirrhotic shrunken nodular liver. GI tract appeared unremarkable. ASSESSMENT AND PLAN: The patient with nonalcoholic fatty liver disease and cirrhosis due to the same, who presents with pancytopenia and ammonia level of 92. Her COVID status is negative. CT does not suggest any ascites. She will need to get her lactulose q.8 hours and also remain on Xifaxan 550 p.o. b.i.d. She has had a recent upper endoscopy, which did not show any gastroesophageal varices, but was significant for portal hypertension. We would like to rule out urinary tract infection as cause of worsening encephalopathy. The patient may have regular diet at this time. <ELECTRONICALLY SIGNED> By: Ann-Marie Boss MD 08/12/21 1602 1504 1942Ann-Marie Boss MD /nt
== END 2021-08-10 16:45 | DRG 871 ==
LOC: M.ERS 10:30 → M.TBA-ER 11:57 → M.2W 11:57
PROVIDERS: Emergency Medicine; ADMIT Internal Medicine; ATTEND Internal Medicine
PROC: 02HV33Z Insertion of Infusion Device into Superior Vena Cava, Percutaneous Approach (ICD-10-PCS; principal; 2021-08-04)
DX: A41.9 Sepsis, unspecified organism (principal); K72.00 Acute and subacute hepatic failure without coma; D61.818 Other pancytopenia; N39.0 Urinary tract infection, site not specified; R18.8 Other ascites; Z68.42 Body mass index [BMI] 45.0-49.9, adult; Z88.2 Allergy status to sulfonamides; Z88.8 Allergy status to other drugs, medicaments and biological substances; Z20.822 Contact with and (suspected) exposure to COVID-19; Z79.899 Other long term (current) drug therapy; K74.60 Unspecified cirrhosis of liver; G43.909 Migraine, unspecified, not intractable, without status migrainosus; E66.01 Morbid (severe) obesity due to excess calories; E78.5 Hyperlipidemia, unspecified; K21.9 Gastro-esophageal reflux disease without esophagitis; Z85.72 Personal history of non-Hodgkin lymphomas; Z91.040 Latex allergy status; Z91.048 Other nonmedicinal substance allergy status; Z90.49 Acquired absence of other specified parts of digestive tract; Z90.710 Acquired absence of both cervix and uterus; E05.00 Thyrotoxicosis with diffuse goiter without thyrotoxic crisis or storm; M06.9 Rheumatoid arthritis, unspecified; R94.31 Abnormal electrocardiogram [ECG] [EKG]; K76.0 Fatty (change of) liver, not elsewhere classified

== ENCOUNTER 2021-09-27 12:44 | Inpatient (IN) | payer OTHER ==
[~2021-09-27] VITALS: Ht 165.1 cm; Wt 117.9 kg
[2021-09-27 12:49] VITALS: BP 100/40
[2021-09-27 14:21] LABS: ABSOLUTE EOSINOPHILS 0.1 thou/uL (0.0-0.7); ABSOLUTE LYMPHOCYTES 0.5 thou/uL (0.8-5.3); ABSOLUTE MONOCYTES 0.3 thou/uL (0.0-1.2); ABSOLUTE NEUTROPHILS 2.1 thou/uL (1.6-8.1); BASOPHILS 0.8 %; EOSINOPHILS 2.9 %; HEMATOCRIT 23.3 % (37.0-47.0); HEMOGLOBIN 7.4 gm/dL (12.0-15.0); LYMPHOCYTES 15.4 %; MCH 26.6 pg (26.0-34.0); MCHC 31.6 g/dL (28.0-37.0); MCV 84.3 fL (80.0-100.0); MONOCYTES 9.1 %; MPV 9.2 fl. (7.2-11.1); NUCLEATED RBCS 0 /100WBC; PLATELET COUNT* 59 thou/uL (150-400); POLYS 71.8 %; RBC 2.76 mil/uL (4.20-5.00); RDW-CV 23.4 % (10.5-14.5)
[2021-09-27 14:30] LABS: CALCIUM 7.7 mg/dL (8.5-10.1); CREATININE 1.6 mg/dL (0.6-1.3); POTASSIUM 3.2 mmol/L (3.5-5.1)
[2021-09-27 14:41] LABS: URINE BILIRUBIN NEGATIVE (Negative); URINE BLOOD NEGATIVE (Negative); URINE CLARITY CLEAR; URINE COLOR YELLOW; URINE GLUCOSE-RANDOM NEGATIVE (Negative); URINE KETONES NEGATIVE (Negative); URINE LEUKOCYTES-REFLEX 1+ (Negative); URINE NITRITE-REFLEX NEGATIVE (Negative); URINE PROTEIN NEGATIVE (Negative); URINE UROBILINOGEN 0.2 E.U./dl (0.2-1.0)
[2021-09-27 14:48] LABS: INR 1.5; PROTIME 15.6 Seconds (9.20-11.50)
[2021-09-27 14:49] LABS: BACTERIA-REFLEX >30 Many /HPF (None Seen); CRYSTALS None Seen /LPF (None Seen); HYALINE CASTS 4-10 Moderate /LPF (None Seen); MUCUS None Seen strn/LPF (None Seen); SQUAMOUS 0-3 Few /LPF (0-3); URINE RBC None Seen /HPF (0-2); URINE WBC-REFLEX >25 Many /HPF (0-5)
[2021-09-27 14:50] LABS: ALBUMIN 1.9 g/dL (3.4-5.0); CK-MB MASS 4.4 ng/mL (<0.5-3.6); TOTAL BILIRUBIN 1.7 mg/dL (<0.1-1.0); TOTAL PROTEIN 5.9 g/dL (6.4-8.2)
[2021-09-27 14:59] LABS: APTT 107.5 Seconds (25.0-31.3)
[2021-09-27 17:36] LABS: PLATELET ESTIMATE DECREASED; POLYCHROMASIA Occasional
[2021-09-27 17:37] LABS: ANISOCYTOSIS 2+; OVALOCYTES Occasional
[2021-09-27 17:38] LABS: HYPOCHROMASIA Occasional
[2021-09-28] VITALS (7 sets, daily range): BP systolic 78–154; BP diastolic 25–97
--- NOTE | 2021-09-28 09:35 | EKG ---
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: TM : 1951-10-11 Requested By: Reed Chavez Order Number: [id number] MD: Caleb Cedeno Measurements Intervals [place] Rate: 58 P: 35 FL: 161 QRS: -16 QRSD: 102 T: 12 QT: 547 QTc: 538 Interpretive Statements Sinus rhythm Left ventricular hypertrophy Prolonged QT interval Compared to ECG 08/04/2021 10:48:41 Prolonged QT interval now present Q waves no longer present ST (T wave) deviation no longer present Electronically Signed On 09-28-2021 9:35:32 FIRST ASSISTANT MANAGER by Caleb Cedeno [email or web address] <ELECTRONICALLY SIGNED> By: Caleb Cedeno MD, [facility] 09/28/21 0935 1301 1301 Caleb Cedeno MD, [facility] /EPI
[2021-09-28 16:59] LABS: AMP/METHAMP Negative (Negative); BARBITURATES Negative (Negative); BENZODIAZEPINES Negative (Negative); COCAINE Negative (Negative); METHADONE Negative (Negative); OPIATES Negative (Negative); PCP Negative (Negative); THC Negative (Negative)
[2021-09-29] VITALS (8 sets, daily range): BP systolic 83–153; BP diastolic 28–62
[2021-09-29 05:53] LABS: HEMATOCRIT 20.1 % (37.0-47.0); MCH 26.9 pg (26.0-34.0); MCHC 31.8 g/dL (28.0-37.0); MCV 84.6 fL (80.0-100.0); MPV 9.2 fl. (7.2-11.1); NUCLEATED RBCS 0 /100WBC; RBC 2.37 mil/uL (4.20-5.00); RDW-CV 22.9 % (10.5-14.5)
[2021-09-29 06:01] LABS: PLATELET COUNT* 47 thou/uL (150-400)
[2021-09-29 06:02] LABS: HEMOGLOBIN 6.4 gm/dL (12.0-15.0); WBC 1.9 thou/uL (4.0-11.0)
[2021-09-29 06:09] LABS: ALBUMIN 1.7 g/dL (3.4-5.0); CALCIUM 7.5 mg/dL (8.5-10.1); CREATININE 1.4 mg/dL (0.6-1.3); POTASSIUM 3.8 mmol/L (3.5-5.1); TOTAL BILIRUBIN 1.1 mg/dL (<0.1-1.0); TOTAL PROTEIN 5.6 g/dL (6.4-8.2)
[2021-09-29 07:25] LABS: ABSOLUTE EOSINOPHILS 0.1 thou/uL (0.0-0.7); ABSOLUTE LYMPHOCYTES 0.3 thou/uL (0.8-5.3); ABSOLUTE MONOCYTES 0.1 thou/uL (0.0-1.2); ABSOLUTE NEUTROPHILS 1.5 thou/uL (1.6-8.1)
[2021-09-29 07:26] LABS: ANISOCYTOSIS 2+; GIANT PLATELETS FEW; HYPOCHROMASIA 1+; PLATELET ESTIMATE DECREASED
[2021-09-30 00:34] VITALS: BP 106/50
[2021-09-30 04:53] VITALS: BP 113/48
[2021-09-30 07:45] LABS: ABSOLUTE EOSINOPHILS 0.1 thou/uL (0.0-0.7); ABSOLUTE LYMPHOCYTES 0.5 thou/uL (0.8-5.3); ABSOLUTE MONOCYTES 0.2 thou/uL (0.0-1.2); ABSOLUTE NEUTROPHILS 1.7 thou/uL (1.6-8.1); BASOPHILS 0.5 %; EOSINOPHILS 4.7 %; HEMATOCRIT 24.1 % (37.0-47.0); HEMOGLOBIN 7.5 gm/dL (12.0-15.0); LYMPHOCYTES 20.5 %; MCH 26.9 pg (26.0-34.0); MCHC 31.2 g/dL (28.0-37.0); MCV 86.4 fL (80.0-100.0); MONOCYTES 6.3 %; MPV 9.2 fl. (7.2-11.1); NUCLEATED RBCS 0 /100WBC; PLATELET COUNT* 57 thou/uL (150-400); RBC 2.79 mil/uL (4.20-5.00); RDW-CV 21.3 % (10.5-14.5); WBC 2.5 thou/uL (4.0-11.0)
[2021-09-30 08:21] LABS: ALBUMIN 1.8 g/dL (3.4-5.0); CALCIUM 7.9 mg/dL (8.5-10.1); CREATININE 1.3 mg/dL (0.6-1.3); POTASSIUM 3.3 mmol/L (3.5-5.1); TOTAL BILIRUBIN 1.2 mg/dL (<0.1-1.0); TOTAL PROTEIN 5.9 g/dL (6.4-8.2)
[2021-09-30 08:25] LABS: INR 1.3; PROTIME 13.3 Seconds (9.20-11.50)
[2021-09-30 08:30] VITALS: BP 107/42
[2021-09-30 08:51] LABS: ANISOCYTOSIS 2+; HYPOCHROMASIA 1+
[2021-09-30 09:12] LABS: % SATURATION 11 % (20-39); IRON 25 ug/dL (50-175)
[2021-09-30 12:00] VITALS: BP 97/35
[2021-09-30 16:00] VITALS: BP 96/35
[2021-09-30 20:30] VITALS: BP 114/37
[2021-10-01 00:10] VITALS: BP 98/75
[2021-10-01 08:00] VITALS: BP 117/41
[2021-10-01 11:33] VITALS: BP 100/33
[2021-10-01 16:50] VITALS: BP 119/46
[2021-10-01 19:50] VITALS: BP 104/42
[2021-10-02] VITALS (7 sets, daily range): BP systolic 85–126; BP diastolic 32–64
[2021-10-02 05:56] LABS: HEMATOCRIT 24.6 % (37.0-47.0); HEMOGLOBIN 7.8 gm/dL (12.0-15.0); MCH 27.1 pg (26.0-34.0); MCHC 31.8 g/dL (28.0-37.0); MCV 85.2 fL (80.0-100.0); MPV 8.3 fl. (7.2-11.1); RBC 2.89 mil/uL (4.20-5.00); WBC 3.1 thou/uL (4.0-11.0)
[2021-10-02 06:26] LABS: CALCIUM 7.9 mg/dL (8.5-10.1); CREATININE 1.2 mg/dL (0.6-1.3); POTASSIUM 3.1 mmol/L (3.5-5.1)
[2021-10-03 04:42] VITALS: BP 93/39
[2021-10-03 08:00] VITALS: BP 114/42
[2021-10-03 13:08] VITALS: BP 104/69
[2021-10-03 17:46] VITALS: BP 95/36
[2021-10-03 19:20] VITALS: BP 125/72
[2021-10-04] VITALS: BP 103/51
[2021-10-04 03:39] VITALS: BP 99/39
[2021-10-04 09:18] VITALS: BP 129/59
[2021-10-04 11:57] VITALS: BP 106/34
[2021-10-04 13:15] VITALS: BP 106/34
[2021-10-04 13:54] VITALS: BP 106/34
== END 2021-10-04 15:25 | disposition home or self-care (01) | DRG 871 ==
LOC: M.ERS 12:44 → M.2W 15:54 → M.TBA-ER 15:54 → M.2W 09-28 04:49
PROVIDERS: Family Medicine; Internal Medicine; Internal Medicine Gastroenterology; ADMIT Internal Medicine; ATTEND Internal Medicine
PROC: 30233N1 Transfusion of Nonautologous Red Blood Cells into Peripheral Vein, Percutaneous Approach (ICD-10-PCS; principal; 2021-09-29)
DX: A41.9 Sepsis, unspecified organism (principal); G93.41 Metabolic encephalopathy; E43 Unspecified severe protein-calorie malnutrition; N39.0 Urinary tract infection, site not specified; D61.818 Other pancytopenia; N17.9 Acute kidney failure, unspecified; D62 Acute posthemorrhagic anemia; K76.6 Portal hypertension; Z16.21 Resistance to vancomycin; Z68.41 Body mass index [BMI] 40.0-44.9, adult; E66.01 Morbid (severe) obesity due to excess calories; M19.90 Unspecified osteoarthritis, unspecified site; K72.90 Hepatic failure, unspecified without coma; K74.60 Unspecified cirrhosis of liver; N18.9 Chronic kidney disease, unspecified; K31.819 Angiodysplasia of stomach and duodenum without bleeding; R10.9 Unspecified abdominal pain; K21.9 Gastro-esophageal reflux disease without esophagitis; E78.5 Hyperlipidemia, unspecified; M06.9 Rheumatoid arthritis, unspecified; E11.22 Type 2 diabetes mellitus with diabetic chronic kidney disease; J45.909 Unspecified asthma, uncomplicated; G43.909 Migraine, unspecified, not intractable, without status migrainosus; G89.29 Other chronic pain; Z88.2 Allergy status to sulfonamides; Z88.8 Allergy status to other drugs, medicaments and biological substances; Z88.6 Allergy status to analgesic agent; Z90.49 Acquired absence of other specified parts of digestive tract; Z85.72 Personal history of non-Hodgkin lymphomas; Z90.710 Acquired absence of both cervix and uterus; Z91.041 Radiographic dye allergy status; Z91.040 Latex allergy status